=== PATIENT | female | born 1980 | race Caucasian/White ===

== ENCOUNTER 2022-11-09 17:31 | Emergency (ER) | payer OTHER, SELFPAY ==
[2022-11-09 17:34] VITALS: BP 153/95; PULSE 102; RESP 18; TEMP 36.9; O2SAT 98; BMI 17.3
[2022-11-09 18:08] LABS: Bilirubin Urine SMALL (NEGATIVE); Blood Urine LARGE (NEGATIVE); Color Urine RED (YELLOW); Glucose Urine UA NEGATIVE (NEGATIVE); Ketones Urine TRACE mg/dL (NEGATIVE); Leukocyte Esterase Urine MODERATE (NEGATIVE); Nitrite Urine POSITIVE (NEGATIVE); Protein Urine 100 mg/dL (NEG/TRACE); Specific Gravity Urine 1.025 (1.005-1.025); pH Urine 5.5 (5.0-9.0)
[2022-11-09 18:09] LABS: Clarity Urine CLOUDY (CLEAR); Urine Microscopic Indicated YES
--- NOTE | 2022-11-09 18:12 | ED.FEMALEGU1 ---
HPI - Female Genitourinary General Chief complaint: Urogenital-Female Stated complaint: BLOOD IN URINE Time Seen by Provider: 11/09/22 17:36 Source: patient Mode of arrival: walk-in History of Present Illness HPI Narrative: Patient is a 42-year-old female who presents to the emergency department for a one-day history of painful urination and blood in her urine. She denies any fevers, chills, nausea, vomiting. She has no flank or back pain. She does have a history of urinary tract infection. She states just prior to arrival she noted blood in her urine. She has had a previous hysterectomy and is not concerned for . Related Data Home Medications Medication Instructions Recorded Confirmed alprazolam 0.5 mg tablet 0.5 mg PO .q6 PRN anxiety 11/09/22 11/09/22 montelukast 10 mg tablet 10 mg PO QDAY 11/09/22 11/09/22 Previous Rx's Medication Instructions Recorded ciprofloxacin HCl 500 mg tablet 500 mg PO BID #14 tabs 11/09/22 (Cipro) ondansetron 4 mg disintegrating 4 mg PO Q6H PRN nausea and 11/09/22 tablet vomiting #12 tabs phenazopyridine 200 mg tablet 200 mg PO Q8H 2 days #6 tabs 11/09/22 (Pyridium) Allergies Allergy/AdvReac Type Severity Reaction Status Date / Time bactrim AdvReac Intermediate Uncoded 11/09/22 17:34 pcn AdvReac Intermediate Uncoded 11/09/22 17:34 Review of Systems ROS Constitutional Denies: fever or chills Ears, nose, mouth, and throat Denies: throat pain Respiratory Denies: cough Gastrointestinal Reports: abdominal pain; Denies: nausea or vomiting Genitourinary Reports: painful urination and urinary frequency Musculoskeletal Denies: back pain Integumentary/Breast Denies: rash Endocrine Reports: excessive urination Exam Narrative Exam Narrative: Gen.: Awake, alert, in no distress Head: Normocephalic, atraumatic ENT: Moist mucous membranes Respiratory: No respiratory distress Gastrointestinal: Abdomen is soft, nondistended and nontender to palpation; no CVA tenderness Extremities: Moves extremities equally Psych: Normal mood and affect Neuro: No focal neuro deficit Skin: Warm, dry, intact Constitutional Vital Signs, click to edit/add: Last Vital Signs Temp 98.4 F 11/09/22 17:34 Pulse 102 H 11/09/22 17:34 Resp 18 11/09/22 17:34 BP 153/95 H 11/09/22 17:34 Pulse Ox 98 11/09/22 17:34 O2 Del Method Room Air 11/09/22 17:34 Course Vital Signs Vital signs: Vital Signs Temperature 98.4 F 11/09/22 17:34 Pulse Rate 102 H 11/09/22 17:34 Respiratory Rate 18 11/09/22 17:34 Blood Pressure 153/95 H 11/09/22 17:34 Pulse Oximetry 98 11/09/22 17:34 Oxygen Delivery Method Room Air 11/09/22 17:34 Temperature 98.4 F 11/09/22 17:34 Pulse Rate 102 H 11/09/22 17:34 Respiratory Rate 18 11/09/22 17:34 Blood Pressure 153/95 H 11/09/22 17:34 Pulse Oximetry 98 11/09/22 17:34 Oxygen Delivery Method Room Air 11/09/22 17:34 MDM - Female Genitourinary MDM Narrative Medical decision making narrative: Urine specimen is consistent with nitrate positive urinary tract infection. Patient given instructions for home. She is started on Cipro, Pyridium, Zofran. Follow-up with PCP and return to the Emergency Room if symptoms change or worsen. Medical Records Attestation: I reviewed the patient's medical records. Lab Data Attestation: I reviewed the patient's lab results. Labs: Lab Results 11/09/22 Range/Units 17:45 Urine Color Red A (YELLOW) Urine Clarity Cloudy A (CLEAR) Urine pH 5.5 (5.0-9.0) Ur Specific [place] 1.025 (1.005-1.025) Urine Protein 100 A (NEG/TRACE) mg/dL Urine Glucose (UA) Negative (NEGATIVE) mg/dL Urine Ketones Trace A (NEGATIVE) mg/dL Urine Occult Blood Large A (NEGATIVE) Urine Nitrite Positive A (NEGATIVE) Urine Bilirubin Small A (NEGATIVE) Urine Urobilinogen 1.0 (0.2-1.0) EU/dL Ur Leukocyte Esterase Moderate A (NEGATIVE) Discharge Plan Discharge Chief Complaint: Urogenital-Female Clinical Impression: Urinary tract infection Patient Disposition: Home, Self-Care Time of Disposition Decision: 18:10 Condition: Good Prescriptions / Home Meds: New ciprofloxacin HCl [Cipro] 500 mg tablet 500 mg PO BID Qty: 14 0RF phenazopyridine [Pyridium] 200 mg tablet 200 mg PO Q8H 2 Days Qty: 6 0RF ondansetron 4 mg tablet,disintegrating 4 mg PO Q6H PRN (Reason: nausea and vomiting) Qty: 12 0RF No Action alprazolam 0.5 mg tablet 0.5 mg PO .q6 PRN (Reason: anxiety) montelukast 10 mg tablet 10 mg PO QDAY Instructions: Urinary Tract Infection in Women (ED) Stand Alone Forms: Portal Instructions Referrals: COOPER MORGAN [Primary Care Provider] - 1 week Discharge Date/Time: 11/09/22 18:19
[2022-11-09 18:14] LABS: Bacteria Urine NONE SEEN #/HPF (NONE SEEN); Cast Seen? NONE SEEN #/LPF (NONE SEEN); Crystals Seen? None Seen #/HPF (None Seen); Mucus Urine NONE SEEN (NONE SEEN); RBC Urine >100 #/HPF (0-2); Squamous Epithelial Cell Urine NONE SEEN #/LPF (NONE/RARE); Urine Culture Indicated NO
== END 2022-11-09 18:19 | disposition home or self-care (01) ==
PROVIDERS: Physician Assistant; Emergency Provider Student in an Organized Health Care Education/Training Program; PCP Family Medicine
DX: N39.0 Urinary tract infection, site not specified (principal); Z90.710 Acquired absence of both cervix and uterus; Z87.440 Personal history of urinary (tract) infections; Z79.899 Other long term (current) drug therapy
CPT/HCPCS: 81001; 99283

== ENCOUNTER 2022-11-12 13:10 | Emergency (ER) | payer OTHER, SELFPAY ==
[2022-11-12 13:29] VITALS: BP 110/85; PULSE 89; RESP 20; TEMP 36.6; O2SAT 100; BMI 25.7
[2022-11-12 13:49] LABS: Bilirubin Urine NEGATIVE (NEGATIVE); Blood Urine NEGATIVE (NEGATIVE); Clarity Urine CLEAR (CLEAR); Color Urine YELLOW (YELLOW); Glucose Urine UA NEGATIVE (NEGATIVE); Ketones Urine NEGATIVE (NEGATIVE); Leukocyte Esterase Urine NEGATIVE (NEGATIVE); Nitrite Urine NEGATIVE (NEGATIVE); Protein Urine NEGATIVE (NEG/TRACE); Urobilinogen Urine 0.2 EU/dL (0.2-1.0)
[2022-11-12 13:51] LABS: Urine Microscopic Indicated NO
--- NOTE | 2022-11-12 14:32 | ED_ITS ---
HPI - General Adult General Chief complaint: Urogenital-Female Stated complaint: UTI AND LOWER BACK PAIN Time Seen by Provider: 11/12/22 14:20 Source: patient Mode of arrival: walk-in Limitations: no limitations History of Present Illness HPI narrative: Patient is a 42-year-old female presents to the Emergency Room with concerns of intermittent flank pain and low back pain. Patient was seen in the Emergency Room a few days ago with urine culture pending treated for urinary tract infection. Patient reports having gross hematuria at that time with discomfort. Patient states throughout the day today she has had sharp pain in the right flank that is sometimes debilitating and then fleets away. She has had prior hysterectomy and appendectomy. She has no prior history of kidney stones. Patient is concerned as the pain will come at random times without motion or stress. Patient denies any recent fall trauma or injury. She has been taking her antibiotic as prescribed. Related Data Home Medications Medication Instructions Recorded Confirmed alprazolam 0.5 mg tablet 0.5 mg PO .q6 PRN anxiety 11/09/22 11/09/22 montelukast 10 mg tablet 10 mg PO QDAY 11/09/22 11/09/22 Previous Rx's Medication Instructions Recorded ciprofloxacin HCl 500 mg tablet 500 mg PO BID #14 tabs 11/09/22 (Cipro) ondansetron 4 mg disintegrating 4 mg PO Q6H PRN nausea and 11/09/22 tablet vomiting #12 tabs phenazopyridine 200 mg tablet 200 mg PO Q8H 2 days #6 tabs 11/09/22 (Pyridium) polyethylene glycol 3350 17 17 g PO DAILY PRN constipation 11/12/22 gram/dose oral powder (Miralax) #119 grams Allergies Allergy/AdvReac Type Severity Reaction Status Date / Time bactrim AdvReac Intermediate Uncoded 11/09/22 17:34 pcn AdvReac Intermediate Uncoded 11/09/22 17:34 Review of Systems ROS Constitutional Denies: fever or chills Ears, nose, mouth, and throat Denies: throat pain, neck pain or throat swelling Cardiovascular Denies: chest pain or palpitations Respiratory Denies: shortness of breath Gastrointestinal Reports: abdominal pain (Positive right flank pain) Genitourinary Denies: painful urination or vaginal bleeding Musculoskeletal Reports: back pain Integumentary/Breast Denies: rash Neurological Denies: headache Psychiatric Denies: anxiety PFSH PFS Social History Smoking status: Never smoker Exam Narrative Exam Narrative: Nurses notes and vital signs reviewed and patient is not hypoxic. General: The patient appears well and in no apparent distress. Patient is resting comfortably on cart. Patient notes when pain is present it is severe Skin: Warm, dry, no pallor noted. No evidence of rash Head: Normocephalic, atraumatic Neck: Supple, trachea mid-line, no tenderness, no lymphadenopathy Eye: Pupils are equal, round and reactive to light, EOMI Ears, Nose, Mouth, and Throat: External exam unremarkable Cardiovascular: Regular Rate and Rhythm Respiratory: Patient is in no distress, no accessory muscle use, lungs are clear to auscultation, no wheezing, rales or rhonchi. Chest Wall: no tenderness Back: non-tender, no CVA tenderness, Musculoskeletal: normal ROM, no tenderness, no swelling GI: Normal bowel sounds, no tenderness to palpation, no masses appreciated. No rebound, guarding, or rigidity noted. Neurological: A&O x4 Psychiatric: Cooperative Constitutional Vital Signs, click to edit/add: Last Vital Signs Temp 97.9 F 11/12/22 13:29 Pulse 89 11/12/22 13:29 Resp 20 11/12/22 13:29 BP 110/85 11/12/22 13:29 Pulse Ox 100 11/12/22 13:29 Course Vital Signs Vital signs: Vital Signs Temperature 97.9 F 11/12/22 13:29 Pulse Rate 89 11/12/22 13:29 Respiratory Rate 20 11/12/22 13:29 Blood Pressure 110/85 11/12/22 13:29 Pulse Oximetry 100 11/12/22 13:29 Temperature 97.9 F 11/12/22 13:29 Pulse Rate 89 11/12/22 13:29 Respiratory Rate 20 11/12/22 13:29 Blood Pressure 110/85 11/12/22 13:29 Pulse Oximetry 100 11/12/22 13:29 Medical Decision Making MDM Narrative Medical decision making narrative: Previous hysterectomy and appendectomy reported, pain in the right flank sharp severe intermittent concerning for possible kidney stone. We discussed her symptoms currently tolerable with mild ache but can be severe with sharp pain. Patient agreeable to IM Toradol shot. We discussed potential outpatient workup but patient elected to move forward with CT scan today as she has a scheduled appointment with her family doctor on Tuesday. She'll continue with current antibiotic pending urine culture A she will continue her antibiotic, discussed laboratory studies and urinalysis along with CT of the abdomen and pelvis, patient will start MiraLAX daily. The patient is to followup with primary care physician in next 2-3 days or to return to the emergency department should any of the signs or symptoms worsen or new symptoms develop. Patient had questions answered. The patient agrees with the following Diagnosis and Treatment plan and the patient will be discharged home. Lab Data Lab results reviewed: Yes I reviewed the patient's lab results Labs: Lab Results 11/12/22 11/12/22 Range/Units 13:35 14:42 WBC 6.3 (4.0-11.0) 10^3/uL RBC 4.57 (4.20-5.40) 10^6/uL Hgb 13.7 (12.0-16.0) g/dL Hct 40.9 (36.0-48.0) % MCV 89.5 (81.0-99.0) fL MCH 30.0 (26.7-34.0) pg MCHC 33.5 (29.9-35.2) g/dL RDW 12.1 (11.0-15.0) % Plt Count 318 (150-450) 10^3/uL MPV 8.7 L (9.5-13.5) fL Neut % (Auto) 65.8 (43.0-75.0) % Lymph % (Auto) 25.9 (20.5-60.0) % [place] % (Auto) 4.3 (1.7-12.0) % Eos % (Auto) 3.0 (0.9-7.0) % Baso % (Auto) 0.8 (0.2-2.0) % Neut # (Auto) 4.1 (1.4-6.5) 10^3/uL Lymph # (Auto) 1.6 (1.2-3.8) 10^3/uL [place] # (Auto) 0.3 (0.3-0.8) 10^3/uL Eos # (Auto) 0.2 (0.0-0.7) 10^3/uL Baso # (Auto) 0.1 (0.0-0.1) 10^3/uL Abs Immat Gran (auto) 0.01 (0.00-0.03) 10^3/uL Imm/Tot Granulo (auto) 0.2 (0.0-0.5) % Sodium 139 (136-145) mmol/L Potassium 4.0 (3.5-5.1) mmol/L Chloride 103 (98-107) mmol/L Carbon Dioxide 26.2 (21.0-32.0) mmol/L Anion Gap 13.8 BUN 12.0 (7.0-18.0) mg/dL Creatinine 0.60 (0.55-1.02) mg/dL Est GFR ( Amer) >60 (>=60) Est GFR (Non-Af Amer) >60 (>=60) BUN/Creatinine Ratio 20.0 Glucose 89 (74-106) mg/dL Calcium 9.3 (8.5-10.1) mg/dL Urine Color Yellow (YELLOW) Urine Clarity Clear (CLEAR) Urine pH 6.0 (5.0-9.0) Ur Specific [place] 1.010 (1.005-1.025) Urine Protein Negative (NEG/TRACE) mg/dL Urine Glucose (UA) Negative (NEGATIVE) mg/dL Urine Ketones Negative (NEGATIVE) mg/dL Urine Occult Blood Negative (NEGATIVE) Urine Nitrite Negative (NEGATIVE) Urine Bilirubin Negative (NEGATIVE) Urine Urobilinogen 0.2 (0.2-1.0) EU/dL Ur Leukocyte Esterase Negative (NEGATIVE) Imaging Data CT scan - abdomen: Radiologist's impression: At the request of: IDALMIS AZAR Procedure: CT abdomen pelvis wo con EXAMINATION: CT abdomen pelvis wo con, 11/12/2022 2:50 PM EDT HISTORY: Right flank pain stone protocol COMPARISON: None. TECHNIQUE: CT scan of the abdomen and pelvis was performed without IV contrast. CT dose reduction technique was used, including Automated Exposure Control. FINDINGS: LOWER CHEST: The visualized lungs are clear. LIVER: Unremarkable. GALLBLADDER AND BILIARY SYSTEM: The gallbladder is contracted. No significant intra or extrahepatic biliary ductal dilatation. SPLEEN: Unremarkable. PANCREAS: Unremarkable. ADRENAL GLANDS: Unremarkable. KIDNEYS AND URETERS: No nephrolithiasis or hydronephrosis. No ureteral calculus. BLADDER: Unremarkable. GASTROINTESTINAL TRACT: No evidence of bowel obstruction or colitis. The appendix is not clearly identified. Moderate amount of stool in the colon. VASCULATURE: The abdominal aorta is normal in caliber. RETROPERITONEUM: No lymphadenopathy. PERITONEUM/MESENTERY: No abdominal ascites. No free air. PELVIS: No pelvic ascites or lymphadenopathy. BODY WALL: Unremarkable. BONES: No acute abnormality. IMPRESSION: 1. No acute process in the abdomen or pelvis. 2. Constipation. Electronically authenticated by: BRIAN STALLINGS Date: 11/12/2022 15:11 Discharge Plan Discharge Chief Complaint: Urogenital-Female Clinical Impression: Back pain, Constipation Patient Disposition: Home, Self-Care Time of Disposition Decision: 15:19 Condition: Good Prescriptions / Home Meds: New polyethylene glycol 3350 [Miralax] 17 gram/dose powder 17 g PO DAILY PRN (Reason: constipation) Qty: 119 0RF No Action alprazolam 0.5 mg tablet 0.5 mg PO .q6 PRN (Reason: anxiety) montelukast 10 mg tablet 10 mg PO QDAY ciprofloxacin HCl [Cipro] 500 mg tablet 500 mg PO BID Qty: 14 0RF phenazopyridine [Pyridium] 200 mg tablet 200 mg PO Q8H 2 Days Qty: 6 0RF ondansetron 4 mg tablet,disintegrating 4 mg PO Q6H PRN (Reason: nausea and vomiting) Qty: 12 0RF Instructions: Constipation (ED), Acute Low Back Pain (ED) Stand Alone Forms: Portal Instructions Referrals: COOPER MORGAN [Primary Care Provider] - As soon as possible
[2022-11-12] MEDS: KETOROLAC TROMETHAMINE 60 MG/2 ML VIAL IM (14:46)
[2022-11-12 14:53] LABS: Basophils Absolute Auto 0.1 10^3/uL (0.0-0.1); Basophils Percent Auto 0.8 % (0.2-2.0); Eosinophils Absolute Auto 0.2 10^3/uL (0.0-0.7); Hematocrit 40.9 % (36.0-48.0); Hemoglobin 13.7 g/dL (12.0-16.0); Immature Granulocytes Abs Auto 0.01 10^3/uL (0.00-0.03); Immature Granulocytes Pct Auto 0.2 % (0.0-0.5); Lymphocytes Absolute Auto 1.6 10^3/uL (1.2-3.8); Lymphocytes Percent Auto 25.9 % (20.5-60.0); Mean Corpuscular HGB Conc 33.5 g/dL (29.9-35.2); Mean Corpuscular Volume 89.5 fL (81.0-99.0); Mean Platelet Volume 8.7 fL (9.5-13.5); Monocytes Absolute Auto 0.3 10^3/uL (0.3-0.8); Monocytes Percent Auto 4.3 % (1.7-12.0); Neutrophils Absolute Auto 4.1 10^3/uL (1.4-6.5); Neutrophils Percent Auto 65.8 % (43.0-75.0); Platelet Count 318 10^3/uL (150-450); Red Blood Count 4.57 10^6/uL (4.20-5.40); Red Cell Distribution Width 12.1 % (11.0-15.0); White Blood Count 6.3 10^3/uL (4.0-11.0)
--- NOTE | 2022-11-12 14:54 | CT_ITS ---
The [address] [address] Patient Name: LANCE REEDER MRN: [id number] date: 1980 Sex: F Assigned Patient Location: ER Current Patient Location: ER Accession/Order Number: [id number] Exam Date: 11/12/2022 14:50 Report Date: 11/12/2022 15:11 At the request of: IDALMIS AZAR Procedure: CT abdomen pelvis wo con EXAMINATION: CT abdomen pelvis wo con, 11/12/2022 2:50 PM EDT HISTORY: Right flank pain stone protocol COMPARISON: None. TECHNIQUE: CT scan of the abdomen and pelvis was performed without IV contrast. CT dose reduction technique was used, including Automated Exposure Control. FINDINGS: LOWER CHEST: The visualized lungs are clear. LIVER: Unremarkable. GALLBLADDER AND BILIARY SYSTEM: The gallbladder is contracted. No significant intra or extrahepatic biliary ductal dilatation. SPLEEN: Unremarkable. PANCREAS: Unremarkable. ADRENAL GLANDS: Unremarkable. KIDNEYS AND URETERS: No nephrolithiasis or hydronephrosis. No ureteral calculus. BLADDER: Unremarkable. GASTROINTESTINAL TRACT: No evidence of bowel obstruction or colitis. The appendix is not clearly identified. Moderate amount of stool in the colon. VASCULATURE: The abdominal aorta is normal in caliber. RETROPERITONEUM: No lymphadenopathy. PERITONEUM/MESENTERY: No abdominal ascites. No free air. PELVIS: No pelvic ascites or lymphadenopathy. BODY WALL: Unremarkable. BONES: No acute abnormality. CT/CT abdomen pelvis wo con IMPRESSION: 1. No acute process in the abdomen or pelvis. 2. Constipation. Electronically authenticated by: BRIAN STALLINGS Date: 11/12/2022 15:11
[2022-11-12 15:01] LABS: Anion Gap 13.8; Calcium 9.3 mg/dL (8.5-10.1); Carbon Dioxide 26.2 mmol/L (21.0-32.0); Chloride 103 mmol/L (98-107); Estimated GFR (African America >60 (>=60); Estimated GFR (Non-African Ame >60 (>=60); Glucose 89 mg/dL (74-106); Sodium 139 mmol/L (136-145)
== END 2022-11-12 15:37 | disposition home or self-care (01) ==
PROVIDERS: Personal Emergency Response Attendant; Emergency Provider Emergency Medicine Emergency Medical Services; PCP Family Medicine
DX: K59.00 Constipation, unspecified (principal); M54.9 Dorsalgia, unspecified; Z79.899 Other long term (current) drug therapy; Z90.710 Acquired absence of both cervix and uterus
CPT/HCPCS: 36415; 74176; 80048; 81003; 85025; 96372; 99285

== ENCOUNTER 2023-04-06 08:01 | Outpatient (OUT) | payer OTHER, SELFPAY ==
[2023-04-06 08:15] LABS: Basophils Absolute Auto 0.1 10^3/uL (0.0-0.1); Basophils Percent Auto 1.1 % (0.2-2.0); Eosinophils Absolute Auto 0.3 10^3/uL (0.0-0.7); Eosinophils Percent Auto 5.5 % (0.9-7.0); Hematocrit 41.8 % (36.0-48.0); Hemoglobin 13.6 g/dL (12.0-16.0); Immature Granulocytes Abs Auto 0.01 10^3/uL (0.00-0.03); Immature Granulocytes Pct Auto 0.2 % (0.0-0.5); Lymphocytes Absolute Auto 1.3 10^3/uL (1.2-3.8); Lymphocytes Percent Auto 27.9 % (20.5-60.0); Mean Corpuscular HGB Conc 32.5 g/dL (29.9-35.2); Mean Corpuscular Hemoglobin 29.4 pg (26.7-34.0); Mean Corpuscular Volume 90.3 fL (81.0-99.0); Mean Platelet Volume 8.4 fL (9.5-13.5); Monocytes Absolute Auto 0.3 10^3/uL (0.3-0.8); Monocytes Percent Auto 7.1 % (1.7-12.0); Neutrophils Absolute Auto 2.8 10^3/uL (1.4-6.5); Neutrophils Percent Auto 58.2 % (43.0-75.0); Platelet Count 304 10^3/uL (150-450); Red Blood Count 4.63 10^6/uL (4.20-5.40); Red Cell Distribution Width 12.1 % (11.0-15.0); White Blood Count 4.8 10^3/uL (4.0-11.0)
[2023-04-06 09:13] LABS: Alanine Aminotransferase 25 U/L (14-59); Albumin Globulin Ratio 0.9; Albumin Level 3.7 g/dL (3.4-5.0); Alkaline Phosphatase 52 U/L (46-116); Anion Gap 15.9; Aspartate Amino Transferase 14 U/L (15-37); BUN Creatinine Ratio 5.2; Bilirubin Total 0.8 mg/dL (0.2-1.0); Calcium 8.6 mg/dL (8.5-10.1); Carbon Dioxide 22.8 mmol/L (21.0-32.0); Chloride 104 mmol/L (98-107); Estimated GFR (African America >60 (>=60); Estimated GFR (Non-African Ame >60 (>=60); Free T3 2.41 pg/mL (2.18-3.98); Glucose 90 mg/dL (74-106); Potassium 3.7 mmol/L (3.5-5.1); Sodium 139 mmol/L (136-145); Thyroid Stimulating Hormone 0.609 uIU/mL (0.358-3.740); Total Protein 7.7 g/dL (6.4-8.2)
[2023-04-06 09:26] LABS: Free T4 1.03 ng/dL (0.76-1.46)
[2023-04-07 04:07] LABS: FSH 6.8 mIU/mL (.); Luteinizing Hormone(LH) 5.8 mIU/mL (.)
[2023-04-07 16:09] LABS: Deamidated Gliadin Abs, IgA 8 units (0-19); Deamidated Gliadin Abs, IgG 2 units (0-19); Endomysial Antibody IgA Negative (Negative); Immunoglobulin A, Qn, Serum 322 mg/dL (87-352); t-Transglutaminase (tTG) IgA <2 U/mL (0-3); t-Transglutaminase (tTG) IgG <2 U/mL (0-5)
== END 2023-04-06 08:02 | disposition home or self-care (01) ==
LOC: LAB 08:01
PROVIDERS: PCP Family Medicine; Visit Provider Family Medicine
DX: R53.83 Other fatigue (principal); R19.4 Change in bowel habit
CPT/HCPCS: 36415; 80053; 82607; 82784; 83001; 83002; 84439; 84443; 84481; 85025; 86231; 86258; 86364

== ENCOUNTER 2023-05-03 22:16 | Outpatient (REF) | payer OTHER, SELFPAY ==
--- OUTSIDE RECORDS SUMMARY | 2023-05-03 22:20 | XMS_ITS | CCD ---
Author Name Unknown Address [address] [place] [address] Organization [facility] Care Team Providers Care Route Driver Name Role Phone Nolan Muñoz Unavailable WANDA, DR NOLAN Lewis Primary Care Unavailable KARASIK ., DR SMITH Attending Unavailabl e KARASIK ., DR SMITH Consulting Unavailabl e KARASIK ., DR SMITH Admitting Unavailabl e ZieberFito Consulting Unavailable KARASIK ., DR SMITH Attending Unavailabl e KARASIK ., DR SMITH Consulting Unavailabl e KARASIK ., DR SMITH Admitting Unavailabl e WANDA, DR NOLAN Lewis Primary Care Unavailable WANDA, DR NOLAN Lewis Primary Care Unavailable KARASIK ., DR SMITH Admitting Unavailabl e KARASIK ., DR SMITH Attending Unavailabl e KARASIK ., DR SMITH Consulting Unavailabl e WANDA, DR NOLAN Lewis Primary Care Unavailable Fito Islas Consulting Unavailable JHONNY ., DENA Admitting Unavailable JHONNY ., DENA Attending Unavailable JHONNY ., DENA Consulting Unavailable Fito Islas Consulting Unavailable PAY ., DR EH Admitting Unavailable PAY ., DR HE Attending Unavailable WANDA, DR NOLAN Lewis Primary Care Unavailable GRECHNY ., DORIS WESTON Consulting Unavailabl e WANDA, DR NOLAN Lewis Primary Care Unavailable KARASIK ., DR SMITH Attending Unavailabl e KARASIK ., DR SMITH Consulting Unavailabl e KARASIK ., DR SMITH Admitting Unavailabl e Zieber, Fito Consulting Unavailable Asaad, Imad Unavailable Unavailable Primary Care Provider Unavailabl e Allergies Allergy Classification Reported Allergen(s) Allergy Type Date of Onset Reaction(s) Facility (20 sources) Amoxicillin Drug Allergy Unknown [employer] Other (20 sources) Clindamycin Drug Allergy 4 hives [facility] Work Phone: (20 sources) fluticasone Drug Allergy Thrush [employer] [facility] [employer] Other (20 sources) Penicillin Drug Allergy [facility] [employer] [facility] [employer] Other (20 sources) Sulfamethoxazole / Trimethoprim Drug Allergy [facility] [employer] [facility] [employer] Other (1 source) Amoxicillin Drug Allergy [facility] Repository (1 source) Clindamycin Drug Allergy [facility] Repository (1 source) fluticasone Drug Allergy 0 [facility]ository (1 source) Penicillins Drug allergy (disorder) 3 [facility]ository (1 source) Sulfamethoxazole / Trimethoprim Drug Allergy [facility] Repository (1 source) Penicillin G Drug Allergy 4 [facility] Healthcare Medications Current Medications Medication Drug Class(es) Dates Sig (Normalized) Sig (Original) ALPRAZolam 0.5 mg oral tablet (20 sources) Benzodiazepine Start: 02-14-2023 take 1 tablet by mouth twice daily as needed Xanax 0.5 MG 1 tab(s) Orally bid prn for 20 day(s) PRN Jan, Active Start: 07-28-2022 take 1 tablet by nakita th twice daily as needed Xanax 0.5 MG 1 tab(s) Orally bid prn for 20 day(s) PRN July, Active Start: 05-11-2022 take 1 tablet by nakita th twice daily as needed Xanax 0.5 MG 1 tab(s) Orally bid prn for 20 day(s) PRN Apr, Active Start: 01-04-2022 take 1 tablet by nakita th twice daily as needed Xanax 0.5 MG 1 tab(s) Orally bid prn for 20 day(s) PRN Dec, Active Start: 10-19-2021 take 1 tablet by nakita th twice daily as needed Xanax 0.5 MG 1 tab(s) Orally bid prn for 20 day(s) PRN Sep, Active Start: 08-10-2021 take 1 tablet by nakita th twice daily as needed Xanax 0.5 MG 1 tab(s) Orally bid prn for 20 day(s) PRN July, Active Start: 05-07-2021 take 1 tablet by nakita th twice daily as needed Xanax 0.5 MG 1 tab(s) Orally bid prn for 20 day(s) PRN Apr, Active Start: 02-04-2021 ciprofloxacin 500 mg oral tablet (6 sources) Quinolone Antimicrobial Start: 06-20-2020 take 1 tablet by mouth every twelve hours Ciprofloxacin HCl 500 MG 1 tablet Orally every 12 hrs for 7 day(s) May, Active doxycycline hyclate 100 mg oral tablet (4 sources) Tetracycline-class Drug Start: 04-28-2010 take 1 tablet by mouth every twelve hours Doxycycline Hyclate 100 mg 1 tablet Orally Twice a day for 7 day(s) Apr, Active famotidine 10 mg oral tablet (20 sources) Histamine-2 Receptor Antagonist take 1 tablet by mouth every twelve hours Pepcid AC 10 MG 1 tablet as needed Orally Twice a day Active fluconazole 150 mg oral tablet (10 sources) Azole Antifungal Start: 10-22-2019 take 1 tablet by mouth every twenty-four hours Diflucan 150 MG 1 tablet Orally daily for 5 day(s) Sep, Active homatropine methylbromide 0.3 mg/ml / HYDROcodone bitartrate 1 mg/ml oral solution (4 sources) Opioid Agonist, Cholinergic Muscarinic Agonist Start: 04-09-2021 HYDROcodone-Homatro pine 5-1.5 MG/5ML 5 ml as needed Orally every 6 hrs for 5 days Mar, Active Start: 04-09-2021 ibuprofen 800 mg oral tablet (20 sources) Nonsteroidal Anti-inflammatory Drug Start: 10-26-2017 take 1 tablet by mouth three times daily at mealtime as needed Ibuprofen 800 MG 1 tablet with food or milk as needed Orally Three times a day for 90 days Oct, Active Metamucil Fiber 51.7 % (20 sources) Metamucil Fiber 51.7 % as directed Orally prn Active metroNIDAZOLE 500 mg oral tablet (11 sources) Nitroimidazole Antimicrobial Start: 06-20-2020 take 1 tablet by mouth twice daily Flagyl 500 MG 1 tablet Orally twice a day for 7 days May, Active montelukast 10 mg oral tablet (20 sources) Leukotriene Receptor Antagonist Start: 10-10-2018 take 1 tablet by mouth every twenty-four hours Singulair 10 MG 1 tablet Orally Once a day for 90 days Sep, Active ondansetron 4 mg oral tablet (11 sources) Serotonin-3 Receptor Antagonist take 1 tablet by mouth every four hours Ondansetron HCl 4 MG 1 tablet as needed Orally every 4 hrs for 3 days Active polyethylene glycol [id number] [id number] mg / potassium chloride 2970 mg / sodium bicarbonate 6740 mg / sodium chloride 5860 mg / sodium sulfate 70976 mg powder for oral solution (1 source) Osmotic Laxative Start: 04-19-2023 take 236 g by mouth once daily PEG-3350/Electrol ytes 236 GM 4000 ML Orally once daily for 1 days Mar, Active Vitamin C 500 MG (17 sources) Vitamin C 500 MG as directed Orally daily Active Vitamin C 500 MG as directed Orally Active Vitamin D-3 25 MCG (1000 UT) (17 sources) take 1 capsule by mouth once emmy ly Vitamin D-3 25 MCG (1000 UT) 1 capsule Orally Once a day Active Completed/Discontinued Medications Medication Drug Class(es) Dates Sig (Normalized) Sig (Original) ascorbic acid 500 mg oral capsule (2 sources) Vitamin C Vitamin C 500 MG as directed Orally daily Not-Taking/PRN azithromycin 250 mg oral tablet (9 sources) Macrolide Antimicrobial Start: 11-24-2020 Zithromax Z-Jose Guadalupe 250 MG 2 tablet on the first day, then 1 tablet daily for 4 days Orally Once a day for 5 day(s) Oct, Not-Taking cholecalciferol 0.025 mg oral capsule (2 sources) Vitamin D take 1 capsule by mouth every twenty-four hours Vitamin D-3 25 MCG (1000 UT) 1 capsule Orally Once a day Not-Taking/PRN Multivitamin preparation (20 sources) take 1 tablet by mouth once daily as needed Multivitamin - 1 tablet Orally Once a day Not-Taking/PRN take 1 tablet by mouth once evonne y Multivitamin - 1 tablet Orally Once a day Active Zinc (17 sources) take 1 tablet by once daily Zinc 30 MG 1 tablet Orally Once a day Not-Taking take 1 tablet by mouth once evonne y Zinc 30 MG 1 tablet Orally Once a day Active Problems Active Problems Problem Classification Problem Date Documented Da te Episodic/Chronic Abdominal pain (8 sources) Generalized abdominal pain; Translations: [Unspecified abdominal pain] Onset: 07-24-2021 Resolved: 07-24-2021 Episodic Anxiety disorders (20 sources) Anxiety; Translations: [Anxiety disorder, unspecified] Onset: 05-06-2021 Resolved: 10-19-2021 Chronic Malaise and fatigue (20 sources) Fatigue; Translations: [Chronic fatigue, unspecified] Chronic Malaise and fatigue (1 source) Other fatigue Episodic Menstrual disorders (20 sources) Finding of menstrual bleeding; Translations: [Irregular menstruation, unspecified] Chronic Nausea and vomiting (6 sources) Nausea with vomiting, unspecified; Translations: [NAUSEA WITH VOMITING UNSPECIFIED] Onset: 07-23-2021 Resolved: 07-24-2021 Episodic Other aftercare (1 source) Other terminal computer operator (current) drug therapy; Translations: [OTH [facility] CURRENT DRUG THERAPY] Onset: 06-15-2022 Episodic Other connective tissue disease (4 sources) Pain in left foot Onset: 11-12-2021 Resolved: 11-12-2021 Episodic Other ear and sense organ disorders (20 sources) Otitis externa; Translations: [Unspecified otitis externa, left ear] Chronic Other eye disorders (2 sources) Other specified disorders of eye and adnexa Episodic Other gastrointestinal disorders (3 sources) Abdominal distension (gaseous) Episodic Other gastrointestinal disorders (1 source) Change in bowel habit Episodic Other nutritional; endocrine; and metabolic disorders (20 sources) Obesity; Translations: [Obesity, unspecified] Chronic Other nutritional; endocrine; and metabolic disorders (20 sources) Body mass index 30+ - obesity; Translations: [Body mass index (BMI) 35.0-35.9, adult] Chronic Other upper respiratory disease (20 sources) Seasonal allergy; Translations: [Other seasonal allergic rhinitis] Chronic Other upper respiratory disease (4 sources) Other seasonal allergic rhinitis Onset: 08-13-2021 Resolved: 10-19-2021 Chronic Other upper respiratory infections (3 sources) Acute upper respiratory infection, unspecified; Translations: [Acute pharyngitis, unspecified] Onset: 04-09-2021 Resolved: 11-12-2021 Episodic Residual codes; unclassified (1 source) Acquired absence of both cervix and uterus; Translations: [ACQUIRED ABSENCE BOTH CERVIX AND UTERUS] Onset: 06-15-2022 Episodic Past or Other Problems Problem Classification Problem Date Documented Date Episodic/Chronic Immunizations and screening for infectious disease (1 source) Encounter for screening for human papillomavirus (HPV); Translations: [ENC SCREENING HUMAN PAPILLOMAVIRUS] Onset: 11-25-2021 Episodic Nonmalignant breast conditions (2 sources) Unspecified lump in the left breast, upper inner quadrant; Translations: [Unspecified lump in the left breast, lower inner quadrant] Onset: 10-29-2021 Episodic Other female genital disorders (5 sources) Other specified noninflammatory disorders of vagina; Translations: [OTH SPEC NONINFLAMMATORY D/O VAGINA] Onset: 07-21-2021 Episodic Other screening for suspected conditions (not mental disorders or infectious disease) (12 sources) Encounter for screening for malignant neoplasm of cervix; Translations: [Other abnormal and inconclusive findings on diagnostic imaging of breast] Onset: 10-26-2021 Episodic Unclassified (1 source) Cough R05.9 Onset: 04-14-2021 Resolved: 04-14-2021 Results Test Name Value Interpretation Reference Range Facility COVID + FLU Quick Testingon 03-14-2023 SARS-CoV-2 (COVID-19) RNA BEN+probe Ql (Unsp spec) Negative [facility] [employer] Other COVID + FLU Quick Testing Negative [employer] [facility] [employer] Other Quick Strepon 03-14-2023 S. pyogenes Org specific cx Ql (Throat) Negative [employer] Other Quick Strep [employer] [facility] [employer] Other CBC AUTO DIFFon 06-11-2022 BASO # 0.1 103/ul Normal 0.0-0.1 [facility] Comment on above: Performed By: #### C BC #### [facility] [address] [place], [place] [address] Dr. Eugenio Natarajan Basophils/100 WBC (Bld) 0.5 % Normal 0.2-2.0 [facility] Comment on above: Performed By: #### C BC #### [facility] [address] [place] [address] Dr. Eugenio Natarajan EO # 0.2 103/ul Normal 0.0-0.7 [facility] Comment on above: Performed By: #### C BC #### [facility] [address] [place] [address] Dr. Eugenio Natarajan Eosinophils/100 WBC (Bld) 2.6 % Normal 0.9-7.0 [facility] Comment on above: Performed By: #### C BC #### [facility] [address] [place] [address] Dr. Eugenio Natarajan Erythrocyte distribution width (RBC) [Ratio] 12.3 % Normal 11.0-15.0 [facility] Comment on above: Performed By: #### C BC #### [facility] [address] [place] [address] Dr. Eugenio Natarajan Hematocrit (Bld) [Volume fraction] 39.6 % Normal 36.0-48.0 [facility] Comment on above: Performed By: #### C BC #### [facility] [address] [place] [address] Dr. Eugenio Natarajan Hemoglobin (Bld) [Mass/Vol] 13.3 g/dL Normal 12.0-16.0 [facility] Comment on above: Performed By: #### C BC #### [facility] [address] [place] [address] Dr. Eugenio Natarajan IG # 0.03 10e3/ul Normal 0.00-0.03 [facility] Comment on above: Performed By: #### C BC #### [facility] [address] [place] [address] Dr. Eugenio Natarajan IG % 0.3 % Normal 0.0-0.5 [facility] Comment on above: Performed By: #### C BC #### [facility] [address] [place] [address] Dr. Eugenio Natarajan LYMPH # 1.8 103/ul Normal 1.2-3.8 [facility] Comment on above: Performed By: #### C BC #### [facility] [address] [place] [address] Dr. Eugenio Natarajan Lymphocytes/100 WBC (Bld) 19.1 % Critically low 20.5-60.0 [facility] Comment on above: Performed By: #### C BC #### [facility] [address] [place] [address] Dr. Eugenio Natarajan MANUAL DIFF REQ NO Normal [facility] Comment on above: Performed By: #### C BC #### [facility] [address] [place] [address] Dr. Eugenio Natarajan MCH (RBC) [Entitic mass] 29.6 pg Normal 26.7-34.0 [facility] Comment on above: Performed By: #### C BC #### [facility] [address] [place] [address] Dr. Eugenio Natarajan MCHC (RBC) [Mass/Vol] 33.6 g/dL Normal 29.9-35.2 [facility] Comment on above: Performed By: #### C BC #### [facility] [address] [place] [address] Dr. Eugenio Natarajan MCV (RBC) [Entitic vol] 88.0 fL Normal 81.0-99.0 [facility] Comment on above: Performed By: #### C BC #### [facility] [address] [place] [address] Dr. Eugenio Natarajan MONO # 0.4 103/ul Normal 0.3-0.8 [facility] Comment on above: Performed By: #### C BC #### [facility] [address] [place] [address] Dr. Eugenio Natarajan Monocytes/100 WBC (Bld) 3.8 % Normal 1.7-12.0 [facility] Comment on above: Performed By: #### C BC #### [facility] [address] [place] [address] Dr. Eguenio Natarajan NEUT # 6.9 103/ul Critically high 1.4-6.5 [facility] Comment on above: Performed By: #### C BC #### [facility] [address] [place] [address] Dr. Eugenio Natarajan Neutrophils/100 WBC (Bld) 73.7 % Normal 43.0-75.0 [facility] Comment on above: Performed By: #### C BC #### [facility] [address] [place] [address] Dr. Eugenio Natarajan Platelet mean volume (Bld) [Entitic vol] 8.7 fL Critically low 9.5-13.5 [facility] Comment on above: Performed By: #### C BC #### [facility] [address] [place] [address] [address] Eugenio Natarajan PLT 343 103/ul Normal 150-450 [facility] Comment on above: Performed By: #### C BC #### [facility] [address] [place] [address] Dr. Eugenio Natarajan RBC 4.50 106/ul Normal 4.20-5.40 [facility] Comment on above: Performed By: #### C BC #### [facility] [address] [place] [address] Dr. Eugenio Natarajan WBC 9.3 103/ul Normal 4.0-11.0 [facility] Comment on above: Performed By: #### C BC #### [facility] [address] [place] [address] Dr. Eugenio Natarajan ER URINE PROFILEon 3 Bilirubin Ql (U) Negative Normal NEGATIVE [facility] Comment on above: Performed By: #### E RUR ####[facility] [address] [place], [place] [address]DrGennaro Natarajan Clarity (U) CLEAR Normal CLEAR [facility] Comment on above: Performed By: #### E RUR ####[facility] [address] [place] [address]DrGennaro Natarajan Color (U) LT. YELLOW Normal YELLOW [facility] Comment on above: Performed By: #### E RUR ####[facility] [address] [place] [address]DrGennaro Natarajan ERUAHD A micrscopic examination will be performed if indicated. Normal [facility] Comment on above: Performed By: #### E RUR ####[facility] [address] [place] [address]Dr. Eugenio Natarajan Glucose Ql (U) Negative Normal NEGATIVE [facility] Comment on above: Performed By: #### E RUR ####[facility] [address] [place] [address]Dr. Eugenio Natarajan Hemoglobin Ql (U) Negative Normal NEGATIVE [facility] Comment on above: Performed By: #### E RUR ####[facility] [address] [place], [place] [address]Dr. Eugenio Natarajan Ketones Ql (U) Negative Normal NEGATIVE [facility] Comment on above: Performed By: #### E RUR ####[facility] [address] [place], [place] [address]Dr. Eugenio Natarajan LEUKOCYTES Negative Normal NEGATIVE [facility] Comment on above: Performed By: #### E RUR ####[facility] [address] [place], [place] [address]Dr. Eugenio Natarajan Nitrite Ql (U) Negative Normal NEGATIVE [facility] Comment on above: Performed By: #### E RUR ####[facility] [address] [place], [place] [address]Dr. Eugenio Natarajan pH (U) 6.0 [pH] Normal 5-9 [facility] Comment on above: Performed By: #### E RUR ####[facility] [address] [place], [place] [address]Dr. Eugenio Natarajan SPEC GRAVITY 1.010 Normal 1.005-<=1.025 [facility] Comment on above: Performed By: #### E RUR ####[facility] [address] [place], [place] [address]Dr. Eugenio Natarajan UA PROTEIN Negative Normal NEGATIVE/ TRACE [facility] Comment on above: Performed By: #### E RUR ####[facility] [address] [place], [place] [address]Dr. Eugenio Natarajan UR MICRO IND NOT INDICATED Normal [facility] Comment on above: Performed By: #### E RUR ####[facility] [address] [place] [address]Dr. Eugenio Natarajan Urobilinogen Qn (U) 0.2 {Wilmar'U}/dL Normal 0.2 - 1.0 [facility] Comment on above: Performed By: #### E RUR ####[facility] [address] [place], [place] [address]Dr. Eugenio Natarajan LIPASEon 06-11-2022 Lipase [Catalytic activity/Vol] 116.0 U/L Normal 73.0-393.0 [facility] Comment on above: Performed By: #### C MP, LIPA ####[facility] [address] [place], [place] [address]Dr. Eugenio Natarajan PROF 14(COMP METB)on 023 Albumin [Mass/Vol] 4.4 g/dL Normal 3.4-5.0 [facility] Comment on above: Performed By: #### C MP, LIPA ####[facility] [address] [place], [place] [address]Dr. Eugenio Natarajan Albumin/Globulin [Mass ratio] 1.2 {ratio} Normal [facility] Comment on above: Performed By: #### C MP, LIPA ####[facility] [address] [place], [place] [address]Dr. Eugenio Natarajan ALP [Catalytic activity/Vol] 57 U/L Normal 46-116 [facility] Comment on above: Performed By: #### C MP, LIPA ####[facility] [address] [place], [place] [address]Dr. Eugenio Natarajan ALT [Catalytic activity/Vol] 25 U/L Normal 14-59 [facility] Comment on above: Performed By: #### C MP, LIPA ####[facility] [address] [place], [place] [address]Dr. Eugenio Natarajan Anion gap [Moles/Vol] 13.4 mmol/L Normal [facility] Comment on above: Performed By: #### C MP, LIPA ####[facility] [address] [place], [place] [address]Dr. Eugenio Natarajan AST [Catalytic activity/Vol] 20 U/L Normal 15-37 [facility] Comment on above: Performed By: #### C MP, LIPA ####[facility] [address] [place] [address]Dr. Eugenio Natarajan Bilirubin [Mass/Vol] 0.8 mg/dL Normal 0.2-1.0 [facility] Comment on above: Performed By: #### C MP, LIPA ####[facility] [address] [place], [place] [address]Dr. Eugenio Natarajan Calcium [Mass/Vol] 9.2 mg/dL Normal 8.5-10.1 [facility] Comment on above: Performed By: #### C MP, LIPA ####[facility] [address] [place], [place] [address]Dr. Eugenio Natarajan Chloride [Moles/Vol] 101 mmol/L Normal 98-107 [facility] Comment on above: Performed By: #### C MP, LIPA ####[facility] [address] [place], [place] [address]Dr. Eugenio Natarajan CO2 [Moles/Vol] 28.1 mmol/L Normal 21.0-32.0 [facility] Comment on above: Performed By: #### C MP, LIPA ####[facility] [address] [place], [place] [address]Dr. Eugenio Natarajan Creatinine [Mass/Vol] 0.67 mg/dL Normal 0.55-1.02 [facility] Comment on above: Performed By: #### C MP, LIPA ####[facility] [address] [place], [place] [address]Dr. Eugenio Delgado EGFR-AF SAO TOMEAN >60 Normal >=60 [facility] Comment on above: Performed By: #### C MP, LIPA ####[facility] [address] [place], [place] [address]Dr. Erayanely Delgado EGFR-NON AF SAO TOMEAN >60 Normal >=60 [facility] Comment on above: Performed By: #### C MP, LIPA ####[facility] [address] [place], [place] [address]Dr. Eugenio Natarajan Globulin (S) [Mass/Vol] 3.8 g/dL Normal [facility] Comment on above: Performed By: #### C MP, LIPA ####[facility] [address] [place] [address]Dr. Eugenio Natarajan Glucose [Mass/Vol] 87 mg/dL Normal 74-106 [facility] Comment on above: Performed By: #### C MP, LIPA ####[facility] [address] [place], [place] [address]Dr. Eugenio Delgado Potassium [Moles/Vol] 3.5 mmol/L Normal 3.5-5.1 [facility] Comment on above: Performed By: #### C JANNIE, LIPA ####[facility] [address] [place], [place] [address]Dr. Eugenio Natarajan Protein [Mass/Vol] 8.2 g/dL Normal 6.4-8.2 [facility] Comment on above: Performed By: #### C JANNIE, LIPA ####[facility] [address] [place], [place] [address]Dr. Erayanely Natarajan Sodium [Moles/Vol] 139 mmol/L Normal 136-145 [facility] Comment on above: Performed By: #### C JANNIE, LIPA ####[facility] [address] [place], [place] [address]Dr. Erayanely Natarajan Urea nitrogen [Mass/Vol] 13.0 mg/dL Normal 7.0-18.0 [facility] Comment on above: Performed By: #### C JANNIE, LIPA ####[facility] [address] [place], [place] [address]Dr. Erayanely Natarajan Urea nitrogen/Creatini ne [Mass ratio] 19.4 mg/mg Normal [facility] Comment on above: Performed By: #### C MP, LIPA ####[facility] [id number] [place], [place] [address]Dr. Erayanely Natarajan US SINGLE QUAD RT UPPERon US SINGLE QUAD RT UPPER EXAMINATION: US SINGLE QUAD RT UPPER HISTORY: Abdominal pain ; right abdomen and flank pain increasing in severity COMPARISON: Ultrasound right upper quadrant 07/15/2021 TECHNIQUE: Transabdominal evaluation of the right upper quadrant. FINDINGS: LIVER: Normal size and echotexture. Color Doppler demonstrates patent hepatic veins. PORTAL VEIN: Duplex Doppler demonstrates normal hepatopetal flow pattern with flow velocity averaging 57 cm/s. GALLBLADDER: No visible gallstones, wall thickening, or pericholecystic free fluid. Negative sonographic Pickering's sign. BILIARY: No abnormal dilation or stones. Common bile duct diameter is within normal limits. PANCREASE: No visible mass, abnormal atrophy, or duct dilation. KIDNEY: No hydronephrosis. No visible mass or stones. Size: 11.4 x 5.7 x 3.67 m IMPRESSION: 1. Normal right upper quadrant ultrasound. No suspicious findings to account for patient's symptoms. Electronically authenticated by: FITO ISLAS Date: 2022-06-11 15:06 Normal [facility] XR ABD FLAT_UPon 06-11-2022 XR ABD FLAT_UP EXAMINATION: XR ABD FLAT_UP HISTORY: Abdominal pain , constipation COMPARISON: No relevant comparison available. FINDINGS: BOWEL GAS PATTERN: Non-obstructed. No abnormal dilation or suspicious fluid levels. FREE AIR: None. CALCIFICATIONS: None significant. BONES: No fracture or visible bone lesion. OTHER: Negative. IMPRESSION: 1. Normal bowel gas pattern. No significant stool burden. Electronically authenticated by: FITO ISLAS Date: 2022-06-11 15:29 Normal [facility] PAP ACOG PANEL 2: 30 to 65on 12-02-2021 . . Normal [facility] Comment on above: Result Comment: Perf ormed at: WB Performed By: #### [id number] ####[facility] [address] [place] [address]Dr. Eugenio Natarajan Age Gdln ACOG Testing 30-65 Normal [facility] Comment on above: Performed By: #### [id number] ####[facility] [address] [place] [address]Dr. Eugenio Natarajan DIAGNOSIS: Comment Normal [facility] Comment on above: Result Comment: NEGA TIVE FOR INTRAEPITHELIAL LESION OR MALIGNANCY. Performed at: WB Performed By: #### [id number] ####[facility] [address] [place] [address]Dr. Eugenio Natarajan HPV Aptima Negative Normal Negative [facility] Comment on above: Result Comment: This nucleic acid amplification test detects fourteen high-risk HPV types (16,18,31,33,35,39,45,51,52,56,58,59,66,68) without differentiation. Performed at: =G Performed By: #### 4 [id number] ####[place] [address] [place] [address]DrGennaro Natarajan Methodology: Comment Normal [facility] Comment on above: Result Comment: This liquid based ThinPrep(R) pap test was screened with the use of an image guided system. Performed at: WB Performed By: #### [id number] ####[place] [address]DrGennaro Natarajan Note: Comment Normal [facility] Comment on above: Result Comment: The Pap smear is a screening test designed to aid in the detection of premalignant and malignant conditions of the uterine cervix. It is not a diagnostic procedure and should not be used as the sole means of detecting cervical cancer. Both false-positive and false-negative reports do occur. . Performed at: WB Performed By: #### [id number] ####[facility] [address] [place], [place] [address]DrGennaro Natarajan Performed by: Comment Normal [facility] Comment on above: Result Comment: Maci Solo Box Sealing Inspector (ASCP) Performed at: WB Performed By: #### 4 [id number] ####[facility] [address] [place], [place] [address]DrGennaro Natarajan Specimen adequacy: Comment Normal [facility] Comment on above: Result Comment: Sati sfactory for evaluation. No endocervical component is identified. Performed at: WB Performed By: #### 4 [id number] ####[facility] [address] [place] [address]DrGennaro Natarajan VAGINITIS/VAGINOSIS DNA PROB Niranjan 11-27-2021 Afshan species Negative Normal Negative [facility] Comment on above: Performed By: #### V AGINT #### [facility] [address] [address] [address] Eugenio Natarajan Gardnerella vaginalis Negative Normal Negative [facility] Comment on above: Performed By: #### V AGINT #### [facility] [address] [address] [address] Eugenio Natarajan Trichomonas vaginalis Negative Normal Negative [facility] Comment on above: Performed By: #### V AGINT #### [facility] [address] [address] [address] Eugenio Natarajan COVID Quick Testingon 2021 Result Negative [email or web address] Other MG MAMM LT DIAG FUon 022 MG MAMM LT DIAG FU Patient: LANCE ROBLERO Exam Date: 11/10/2021 : 1980 Gender:F Ordering : DR SARAH KEYS . Admission #: [id number] Family : Order #: [id number] CLICK HERE TO VIEW EXAM RADIOLOGY REPORT PROCEDURE: MAMMOGRAM LEFT DIAGNOSTIC DIGITAL FOLLOW UP, 11/10/2021, 09:14 ULTRASOUND BREAST LEFT LIMITED, 11/10/2021, 09:50 COMPARISON: MG MAMM SCREEN 3D JASON CAD, 10/26/2021. MG MAMM SCREEN 3D JASON CAD, 10/23/2020. INDICATIONS: Abnormal findings on diagnostic imaging of breast Calculator Name NCI Breast Cancer Risk Assessment Tool 5 Year Breast Cancer Risk 0.50% Lifetime Breast Cancer Risk 8.20% Personal Breast Cancer No Personal Ovarian Cancer No Treatments None Family Cancers None LOCATION: [facility] BREAST COMPOSITION: Extremely dense, which lowers the sensitivity of mammography. FINDINGS: DIAGNOSTIC CATEGORY 2--BENIGN FINDING: LEFT BREAST: Spot magnification views demonstrate persistence of an 8 mm partially circumscribed mass within anterior breast, upper inner quadrant. Ultrasound evaluation demonstrates an 8 mm benign-appearing cyst at the 10 o'clock position, 0.7 cm from the nipple. Additional adjacent benign-appearing cysts. Annual screening mammography is recommended. RECOMMENDATIONS: ROUTINE MAMMOGRAM AND CLINICAL EVALUATION IN 12 MONTHS. PLEASE NOTE: A NORMAL MAMMOGRAM DOES NOT EXCLUDE THE POSSIBILITY OF BREAST CANCER. A CLINICALLY SUSPICIOUS PALPABLE LUMP SHOULD BE BIOPSIED. Dictated by: Fito Islas M.D. on 11/10/2021 at 10:32 Approved by: Fito Islas M.D. on 11/10/2021 at 10:35 Normal [facility] US BREAST LEFT LIMITEDon US BREAST LEFT LIMITED Patient: LANCE ROBLERO Exam Date: 11/10/2021 : 1980 Gender:F Ordering : DR SARAH KEYS . Admission #: [id number] Family : Order #: [id number] CLICK HERE TO VIEW EXAM RADIOLOGY REPORT PROCEDURE: MAMMOGRAM LEFT DIAGNOSTIC DIGITAL FOLLOW UP, 11/10/2021, 09:14 ULTRASOUND BREAST LEFT LIMITED, 11/10/2021, 09:50 COMPARISON: MG MAMM SCREEN 3D JASON CAD, 10/26/2021. MG MAMM SCREEN 3D JASON CAD, 10/23/2020. INDICATIONS: Abnormal findings on diagnostic imaging of breast Calculator Name NCI Breast Cancer Risk Assessment Tool 5 Year Breast Cancer Risk 0.50% Lifetime Breast Cancer Risk 8.20% Personal Breast Cancer No Personal Ovarian Cancer No Treatments None Family Cancers None LOCATION: [facility] BREAST COMPOSITION: Extremely dense, which lowers the sensitivity of mammography. FINDINGS: DIAGNOSTIC CATEGORY 2--BENIGN FINDING: LEFT BREAST: Spot magnification views demonstrate persistence of an 8 mm partially circumscribed mass within anterior breast, upper inner quadrant. Ultrasound evaluation demonstrates an 8 mm benign-appearing cyst at the 10 o'clock position, 0.7 cm from the nipple. Additional adjacent benign-appearing cysts. Annual screening mammography is recommended. RECOMMENDATIONS: ROUTINE MAMMOGRAM AND CLINICAL EVALUATION IN 12 MONTHS. PLEASE NOTE: A NORMAL MAMMOGRAM DOES NOT EXCLUDE THE POSSIBILITY OF BREAST CANCER. A CLINICALLY SUSPICIOUS PALPABLE LUMP SHOULD BE BIOPSIED. Dictated by: Fito Islas M.D. on 11/10/2021 at 10:32 Approved by: Fito Islas M.D. on 11/10/2021 at 10:35 Normal [facility] MG MAMM SCREEN 3D JASON CADon 10-26-2021 MG MAMM SCREEN 3D JASON CAD Patient: LANCE ROBLERO Exam Date: 10/26/2021 : 1980 Gender:F Ordering : DR SARAH KEYS . Admission #: [id number] Family : Order #: [id number] CLICK HERE TO VIEW EXAM RADIOLOGY REPORT PROCEDURE: MAMMOGRAM SCREENING 3D BILATERAL CAD COMPARISON: MG MAMM SCREEN 3D JASON CAD, 10/23/2020. MG MAMM JASON DIAG W CAD, 08/02/2018. INDICATIONS: Screening mammography Calculator Name NCI Breast Cancer Risk Assessment Tool 5 Year Breast Cancer Risk 0.50% Lifetime Breast Cancer Risk 8.20% Personal Breast Cancer No Personal Ovarian Cancer No Treatments None Family Cancers None LOCATION: [facility] BREAST COMPOSITION: Extremely dense, which lowers the sensitivity of mammography. FINDINGS: DIAGNOSTIC CATEGORY 0--INCOMPLETE: NEED ADDITIONAL IMAGING EVALUATION. RIGHT BREAST: No significant suspicious finding. No significant change has occurred. LEFT BREAST: 9 x 8 x 5 mm partially circumscribed mass within the lower-inner quadrant, anterior breast. Spot magnification views and ultrasound evaluation recommended. RECOMMENDATIONS: ADDITIONAL MAMMOGRAPHIC VIEWS REQUIRED: LEFT BREAST - LEFT CRANIOCAUDAL SPOT MAGNIFICATION VIEW - LEFT OBLIQUE SPOT MAGNIFICATION VIEW - ULTRASOUND: LEFT BREAST PLEASE NOTE: A NORMAL MAMMOGRAM DOES NOT EXCLUDE THE POSSIBILITY OF BREAST CANCER. A CLINICALLY SUSPICIOUS PALPABLE LUMP SHOULD BE BIOPSIED. Dictated by: Fito Islas M.D. on 10/26/2021 at 13:55 Approved by: Fito Islas M.D. on 10/26/2021 at 14:11 Normal [facility] CBC AUTO DIFFon 07-23-2021 BASO # 0.0 103/ul Normal 0.0-0.1 [facility] Comment on above: Performed By: #### C BC #### [facility] [address] [address] [address] Eugenio Natarajan Basophils/100 WBC (Bld) 0.4 % Normal 0.2-2.0 [facility] Comment on above: Performed By: #### C BC #### [facility] [address] [address] [address] Eugenio Natarajan EO # 0.1 103/ul Normal 0.0-0.7 [facility] Comment on above: Performed By: #### C BC #### [facility] [address] [address] [address] Eugenio Natarajan Eosinophils/100 WBC (Bld) 1.2 % Normal 0.9-7.0 [facility] Comment on above: Performed By: #### C BC #### [facility] [address] [place] [address] Dr. Eugenio Natarajan Erythrocyte distribution width (RBC) [Ratio] 11.8 % Normal 11.0-15.0 [facility] Comment on above: Performed By: #### C BC #### [facility] [address] [place] [address] Dr. Eugenio Natarajan Hematocrit (Bld) [Volume fraction] 39.2 % Normal 36.0-48.0 [facility] Comment on above: Performed By: #### C BC #### [facility] [address] [place] [address] Dr. Eugenio Natarajan Hemoglobin (Bld) [Mass/Vol] 12.8 g/dL Normal 12.0-16.0 [facility] Comment on above: Performed By: #### C BC #### [facility] [address] [place] [address] Dr. Eugenio Natarajan IG # 0.02 10e3/ul Normal 0.00-0.03 [facility] Comment on above: Performed By: #### C BC #### [facility] [address] [place] [address] Dr. Eugenio Natarajan IG % 0.3 % Normal 0.0-0.5 [facility] Comment on above: Performed By: #### C BC #### [facility] [address] [place] [address] Dr. Eugenio Natarajan LYMPH # 1.6 103/ul Normal 1.2-3.8 [facility] Comment on above: Performed By: #### C BC #### [facility] [address] [place] [address] Dr. Eugenio Natarajan Lymphocytes/100 WBC (Bld) 22.3 % Normal 20.5-60.0 [facility] Comment on above: Performed By: #### C BC #### [facility] [address] [place] [address] Dr. Eugenio Natarajan MANUAL DIFF REQ NO Normal [facility] Comment on above: Performed By: #### C BC #### [facility] [address] [place] [address] Dr. Eugenio Natarajan MCH (RBC) [Entitic mass] 29.7 pg Normal 26.7-34.0 [facility] Comment on above: Performed By: #### C BC #### [facility] [address] [place] [address] Dr. Eugenio Natarajan MCHC (RBC) [Mass/Vol] 32.7 g/dL Normal 29.9-35.2 [facility] Comment on above: Performed By: #### C BC #### [facility] [address] [place] [address] Dr. Eugenio Natarajan MCV (RBC) [Entitic vol] 91.0 fL Normal 81.0-99.0 [facility] Comment on above: Performed By: #### C BC #### [facility] [address] [place] [address] Dr. Eugenio Natarajan MONO # 0.3 103/ul Normal 0.3-0.8 [facility] Comment on above: Performed By: #### C BC #### [facility] [address] [place] [address] Dr. Eugenio Natarajan Monocytes/100 WBC (Bld) 4.5 % Normal 1.7-12.0 [facility] Comment on above: Performed By: #### C BC #### [facility] [address] [place] [address] Dr. Eugenio Natarajan NEUT # 5.2 103/ul Normal 1.4-6.5 [facility] Comment on above: Performed By: #### C BC #### [facility] [address] [place] [address] Dr. Eugenio Natarajan Neutrophils/100 WBC (Bld) 71.3 % Normal 43.0-75.0 [facility] Comment on above: Performed By: #### C BC #### [facility] [address] [place] [address] Dr. Eugenio Natarajan Platelet mean volume (Bld) [Entitic vol] 8.6 fL Critically low 9.5-13.5 [facility] Comment on above: Performed By: #### C BC #### [facility] [address] [address] [address] Eugenio Natarajan PLT 320 103/ul Normal 150-450 [facility] Comment on above: Performed By: #### C BC #### [facility] [address] [place] [address] Dr. Eugenio Natarajan RBC 4.31 106/ul Normal 4.20-5.40 [facility] Comment on above: Performed By: #### C BC #### [facility] [address] [address] [address] Eugenio Natarajan WBC 7.3 103/ul Normal 4.0-11.0 [facility] Comment on above: Performed By: #### C BC #### [facility] [address] [place] [address] Dr. Eugenio Natarajan ER URINE PROFILEon 2 Bilirubin Ql (U) Negative Normal NEGATIVE [facility] Comment on above: Performed By: #### E RUR ####[facility] [address] [place], [place] [address]Dr. Eugenio Natarajan Clarity (U) CLEAR Normal CLEAR [facility] Comment on above: Performed By: #### E RUR ####[facility] [address] [place], [place] [address]Dr. Eugenio Natarajan Color (U) LT. YELLOW Normal YELLOW [facility] Comment on above: Performed By: #### E RUR ####[facility] [address] [place], [place] [address]Dr. Eugenio VALENCIAD A micrscopic examination will be performed if indicated. Normal [facility] Comment on above: Performed By: #### E RUR ####[facility] [address] [place], [place] [address]Dr. Eugenio Natarajan Glucose Ql (U) Negative Normal NEGATIVE [facility] Comment on above: Performed By: #### E RUR ####[facility] [address] [address]Dr. Eugenio Natarajan Hemoglobin Ql (U) Negative Normal NEGATIVE [facility] Comment on above: Performed By: #### E RUR ####[facility] [address] [place] [address]Dr. Eugenio Natarajan Ketones Ql (U) 15 mg/dl Abnormal NEGATIVE [facility] Comment on above: Performed By: #### E RUR ####[facility] [address] [place] [address]Dr. Eugenio Natarajan LEUKOCYTES Negative Normal NEGATIVE [facility] Comment on above: Performed By: #### E RUR ####[facility] [address] [place], [place] [address]Dr. Eugenio Natarajan Nitrite Ql (U) Negative Normal NEGATIVE [facility] Comment on above: Performed By: #### E RUR ####[facility] [address] [place], [place] [address]Dr. Eugenio Natarajan pH (U) 6.0 [pH] Normal 5-9 [facility] Comment on above: Performed By: #### E RUR ####[facility] [address] [place], [place] [address]Dr. Eugenio Natarajan SPEC GRAVITY 1.010 Normal 1.005-<=1.025 [facility] Comment on above: Performed By: #### E RUR ####[facility] [address] [place], [place] [address]Dr. Eugenio Natarajan UA PROTEIN Negative Normal NEGATIVE/ TRACE [facility] Comment on above: Performed By: #### E RUR ####[facility] [address] [place], [place] [address]Dr. Erayanely Natarajan UR MICRO IND NOT INDICATED Normal [facility] Comment on above: Performed By: #### E RUR ####[facility] [address] [place], [place] [address]Dr. Eugenio Natarajan Urobilinogen Qn (U) 0.2 {Wilmar'U}/dL Normal 0.2 - 1.0 [facility] Comment on above: Performed By: #### E RUR ####[facility] [address] [place], [place] [address]Dr. Eugenio Natarajan LIPASEon 07-23-2021 Lipase [Catalytic activity/Vol] 74.0 U/L Normal 73.0-393.0 [facility] Comment on above: Performed By: #### C MP, LIPA #### [facility] [address] [place] [address] Dr. Eugenio Natarajan PROF 14(COMP METB)on 022 Albumin [Mass/Vol] 4.1 g/dL Normal 3.4-5.0 [facility] Comment on above: Performed By: #### C MP, LIPA #### [facility] [address] [place] [address] Dr. Eugenio Natarajan Albumin/Globulin [Mass ratio] 1.2 {ratio} Normal [facility] Comment on above: Performed By: #### C JANNIE, LIPA #### [facility] [address] [place] [address] Dr. Eugenio Natarajan ALP [Catalytic activity/Vol] 50 U/L Normal 46-116 [facility] Comment on above: Performed By: #### C JANNIE, LIPA #### [facility] [address] [place] [address] Dr. Eugenio Natarajan ALT [Catalytic activity/Vol] 15 U/L Normal 14-59 [facility] Comment on above: Performed By: #### C JANNIE, LIPA #### [facility] [address] [place] [address] Dr. Eugenio Natarajan Anion gap [Moles/Vol] 13.6 mmol/L Normal [facility] Comment on above: Performed By: #### C MP, LIPA #### [facility] [address] [place] [address] Dr. Eugenio Natarajan AST [Catalytic activity/Vol] 14 U/L Critically low 15-37 [facility] Comment on above: Performed By: #### C MP, LIPA #### [facility] [address] [place] [address] Dr. Eugenio Natarajan Bilirubin [Mass/Vol] 1.3 mg/dL Critically high 0.2-1.0 [facility] Comment on above: Performed By: #### C MP, LIPA #### [facility] [address] [address] [address] Eugenio Natarajan Calcium [Mass/Vol] 8.3 mg/dL Critically low 8.5-10.1 [facility] Comment on above: Performed By: #### C MP, LIPA #### [facility] [address] [place] [address] Dr. Eugenio Natarajan Chloride [Moles/Vol] 99 mmol/L Normal 98-107 [facility] Comment on above: Performed By: #### C MP, LIPA #### [facility] [address] [place] [address] Dr. Eugenio Natarajan CO2 [Moles/Vol] 28.0 mmol/L Normal 21.0-32.0 [facility] Comment on above: Performed By: #### C MP, LIPA #### [facility] [address] [place] [address] Dr. Eugenio Natarajan Creatinine [Mass/Vol] 0.61 mg/dL Normal 0.55-1.02 [facility] Comment on above: Performed By: #### C MP, LIPA #### [facility] [address] [place] [address] Dr. Eugenio Natarajan EGFR-AF SAO TOMEAN >60 Normal >=60 [facility] Comment on above: Performed By: #### C MP, LIPA #### [facility] [address] [place] [address] Dr. Eugenio Natarajan EGFR-NON AF SAO TOMEAN >60 Normal >=60 [facility] Comment on above: Performed By: #### C MP, LIPA #### [facility] [address] [place] [address] Dr. Eugenio Natarajan Globulin (S) [Mass/Vol] 3.3 g/dL Normal [facility] Comment on above: Performed By: #### C MP, LIPA #### [facility] [address] [place] [address] Dr. Eugenio Natarajan Glucose [Mass/Vol] 82 mg/dL Normal 74-106 [facility] Comment on above: Performed By: #### C MP, LIPA #### [facility] [address] [place] [address] Dr. Eugenio Natarajan Potassium [Moles/Vol] 3.6 mmol/L Normal 3.5-5.1 [facility] Comment on above: Performed By: #### C MP, LIPA #### [facility] [address] [place] [address] Dr. Eugenio Natarajan Protein [Mass/Vol] 7.4 g/dL Normal 6.1-8.2 [facility] Comment on above: Performed By: #### C MP, LIPA #### [facility] [address] [place] [address] Dr. Eugenio Natarajan Sodium [Moles/Vol] 137 mmol/L Normal 136-145 [facility] Comment on above: Performed By: #### C MP, LIPA #### [facility] [address] [place] [address] Dr. Eugenio Natarajan Urea nitrogen [Mass/Vol] 8.0 mg/dL Normal 7.0-18.0 [facility] Comment on above: Performed By: #### C MP, LIPA #### [facility] [address] [place] [address] Dr. Eugenio Natarajan Urea nitrogen/Creatini ne [Mass ratio] 13.1 mg/mg Normal [facility] Comment on above: Performed By: #### C MP, LIPA #### [facility] [address] [place] [address] Dr. Eugenio Natarajan US SINGLE QUAD RT UPPERon US SINGLE QUAD RT UPPER EXAMINATION: US SINGLE QUAD RT UPPER HISTORY: Pain ; right upper quadrant pain for 4 days COMPARISON: No relevant comparison available. TECHNIQUE: Transabdominal evaluation of the right upper quadrant. FINDINGS: LIVER: Normal size and echotexture. Color Doppler demonstrates patent hepatic veins. PORTAL VEIN: Duplex Doppler demonstrates normal hepatopetal flow pattern with flow velocity averaging 35 cm/s. GALLBLADDER: No visible gallstones, wall thickening, or pericholecystic free fluid. Negative sonographic Pickering's sign. BILIARY: No abnormal dilation or stones. Common bile duct diameter is within normal limits. PANCREASE: No visible mass, abnormal atrophy, or duct dilation. KIDNEY: No hydronephrosis. No visible mass or stones. Size: 10.9 x 6.0 x 4.2 cm IMPRESSION: 1. No acute or suspicious findings to account for patient's symptoms. Electronically authenticated by: FITO ISLAS Date: 2021-07-23 15:01 Normal [facility] VAGINITIS/VAGINOSIS DNA PROB Niranjan 07-23-2021 Afshan species Negative Normal Negative [facility] Comment on above: Performed By: #### V AGINT #### [facility] [address] [place] [address] Dr. Eugenio Natarajan Gardnerella vaginalis Negative Normal Negative [facility] Comment on above: Performed By: #### V AGINT #### [facility] [address] [place] [address] Dr. Eugenio Natarajan Trichomonas vaginalis Negative Normal Negative [facility] Comment on above: Performed By: #### V AGINT #### [facility] [address] [place] [address] Dr. Eugenio Natarajan Coding Summary.on 04-08-2020 Coding Summary. CODING DATE: 04/08/[address] [facility] STATUS: Home (Routine DC) PAYOR: Medicaid EA DESCRIPTION [id number] LEVEL III MICROBIOLOGY TESTS ADMIT DX: REASON FOR VISIT DX: Z20.828 Contact with and (suspected) exposure to other viral communicable diseases FINAL DX: PRINCIPAL: Z20.828 Contact with and (suspected) exposure to other viral communicable diseases SECONDARY: PYMT PROC EAPG STAT DESCRIPTION DOCTOR NAME DATE NOTE: The code number assigned matches the documented diagnosis and / or procedure in the patient's chart. However, the narrative phrase printed from the coding software may appear abbreviated, or result in slightly different terminology. Coded By: Lelia Lam CphT Date Saved: 04/08/2020 07:50 pm Normal [facility] SARS-CoV-2, NAAon 04-04-2020 SARS CORONAVIRUS 2 RNA:PRTHR:PT:RESP IRATORY:ORD:PROBE .AMP.TAR Not Detected Not Detected [facility] Comment on above: Result Comment: This nucleic acid amplification test was developed and its performance characteristics determined by [facility]. Nucleic acid amplification tests include PCR and TMA. This test has not been FDA cleared or approved. This test has been authorized by FDA under an Emergency Use Authorization (EUA). This test is only authorized for the duration of time the declaration that circumstances exist justifying the authorization of the emergency use of in vitro diagnostic tests for detection of SARS-CoV-2 virus and/or diagnosis of COVID-19 infection under section 564(b)(1) of the Act, 21 U.S.C. 360bbb-3(b) (1), unless the authorization is terminated or revoked sooner. When diagnostic testing is negative, the possibility of a false negative result should be considered in the context of a patient's recent exposures and the presence of clinical signs and symptoms consistent with COVID-19. An individual without symptoms of COVID-19 and who is not shedding SARS-CoV-2 virus would expect to have a negative (not detected) result in this assay. Performed at: [facility] [place] [facility] [address] [facility] [place] [id number] MD Ross García Performed By: #### S ARS-CoV-2, BEN #### [facility] [address] [place] [address] Physician Orderon 04-01-2020 Physician Order [id number] .[id number]:127 Normal [facility] Vital Signs Date Time Vital Sign Value Performing Clinician Facility 04-05-2023 10:30-0500 Body height 163.83 cm Palm Other [facility] Other 04-05-2023 10:30-0500 Body mass index (BMI) [Ratio] 28.22 kg/m2 [facility] Other [facility] Other 04-05-2023 10:30-0500 Body temperature 97.3 [degF] [facility] Other [facility] Other 04-05-2023 10:30-0500 Body weight 75.75 kg Palm Other [facility] Other 04-05-2023 10:30-0500 Diastolic blood pressure 78 mm[Hg] Nolan Wanda Other [facility] Other 04-05-2023 10:30-0500 Respiratory rate 20 /min Nolan Wanda Other [facility] Other 04-05-2023 10:30-0500 SaO2% (BldA) [Mass fraction] 98 % Nolan Wanda Other [facility] Other 04-05-2023 10:30-0500 Systolic blood pressure 130 mm[Hg] Nolan Wanda Other [facility] Other 03-14-2023 13:30-0500 Body height 163.83 cm Nolan Wanda Other [facility] Other 03-14-2023 13:30-0500 Body mass index (BMI) [Ratio] 27.54 kg/m2 Nolan Wanda Other [facility] Other 03-14-2023 13:30-0500 Body temperature 98.5 [degF] Nolan Wanda Other [facility] Other 03-14-2023 13:30-0500 Body weight 73.94 kg Nolan Wanda Other [facility] Other 03-14-2023 13:30-0500 Diastolic blood pressure 80 mm[Hg] Nolan Wanda Other [facility] Other 03-14-2023 13:30-0500 Respiratory rate 20 /min Nolan Wanda Other [facility] Other 03-14-2023 13:30-0500 SaO2% (BldA) [Mass fraction] 98 % Nolan Wanda Other [facility] Other 03-14-2023 13:30-0500 Systolic blood pressure 118 mm[Hg] Nolan Wanda Other [facility] Other 05-04-2022 11:15-0500 Body height 163.83 cm Nolan Wanda Other [facility] Other 05-04-2022 11:15-0500 Body mass index (BMI) [Ratio] 25.85 kg/m2 Nolan Wanda Other [facility] Other 05-04-2022 11:15-0500 Body temperature 97.3 [degF] Nolan Wanda Other [facility] Other 05-04-2022 11:15-0500 Body weight 69.4 kg Nolan Wanda Other [facility] Other 05-04-2022 11:15-0500 Diastolic blood pressure 62 mm[Hg] Nolan Wanda Other [facility] Other 05-04-2022 11:15-0500 Respiratory rate 20 /min Nolan Wanda Other [facility] Other 05-04-2022 11:15-0500 Systolic blood pressure 106 mm[Hg] Nolan Wanda Other [facility] Other 11-12-2021 16:45-0400 Body height 163.83 cm Nolan Wanda Other [facility] Other 11-12-2021 16:45-0400 Body mass index (BMI) [Ratio] 25.01 kg/m2 Nolan Wanda Other [facility] Other 11-12-2021 16:45-0400 Body temperature 98.3 [degF] Nolan Wanda Other [facility] Other 11-12-2021 16:45-0400 Body weight 67.13 kg Nolan Wanda Other [facility] Other 11-12-2021 16:45-0400 Diastolic blood pressure 68 mm[Hg] Nolan Wanda Other [facility] Other 11-12-2021 16:45-0400 Respiratory rate 20 /min Nolan Wanda Other [facility] Other 11-12-2021 16:45-0400 SaO2% (BldA) [Mass fraction] 98 % Nolan Wanda Other [facility] Other 11-12-2021 16:45-0400 Systolic blood pressure 110 mm[Hg] Nolan Wanda Other [facility] Other 07-24-2021 10:00-0400 Body height 163.83 cm Nolan Wanda Other [facility] Other 07-24-2021 10:00-0400 Body mass index (BMI) [Ratio] 25.68 kg/m2 Nolan Wanda Other [facility] Other 07-24-2021 10:00-0400 Body temperature 98.9 [degF] Nolan Wanda Other [facility] Other 07-24-2021 10:00-0400 Body weight 68.95 kg Nolan Wanda Other [facility] Other 07-24-2021 10:00-0400 Diastolic blood pressure 68 mm[Hg] Nolan Wanda Other [facility] Other 07-24-2021 10:00-0400 Respiratory rate 20 /min Nolan Wanda Other [facility] Other 07-24-2021 10:00-0400 SaO2% (BldA) [Mass fraction] 96 % Nolan Wanda Other [facility] Other 07-24-2021 10:00-0400 Systolic blood pressure 118 mm[Hg] Nolan Wanda Other [facility] Other 04-09-2021 17:45-0500 Body height 163.83 cm Nolan Wanda Other [facility] Other 04-09-2021 17:45-0500 Body mass index (BMI) [Ratio] 25.52 kg/m2 Nolan Wanda Other [facility] Other 04-09-2021 17:45-0500 Body temperature 98.4 [degF] Nolan Wanda Other [facility] Other 04-09-2021 17:45-0500 Body weight 68.49 kg Nolan Wanda Other [facility] Other 04-09-2021 17:45-0500 Diastolic blood pressure 60 mm[Hg] Nolan Wanda Other [facility] Other 04-09-2021 17:45-0500 Respiratory rate 20 /min Nolan Wanda Other [facility] Other 04-09-2021 17:45-0500 SaO2% (BldA) [Mass fraction] 98 % Nolan Wanda Other [facility] Other 04-09-2021 17:45-0500 Systolic blood pressure 98 mm[Hg] Nolan Wanda Other [facility] Other Encounters Encounter Date Encounter Type Care Provider Facility Start: 04-29-2023 Chart abstracting Georgina GEORGE Work Phone: [facility] Start: 04-18-2023 End: 04-18-2023 ambulatory Imad Asaad Other [facility] Other Start: 04-18-2023 Telephone encounter Imad Asaad [facility] Start: 04-12-2023 End: 04-12-2023 ambulatory Nolan Wanda Other [facility] Other Start: 04-12-2023 Telephone encounter Nolan Wanda [facility] Start: 04-07-2023 End: 04-07-2023 ambulatory Nolan Wanda Other [facility] Other Start: 04-07-2023 Telephone encounter Nolan Wanda [facility] Start: 04-06-2023 End: 04-06-2023 ambulatory Nolan Wanda Other [facility] Other Start: 04-06-2023 Telephone encounter Nolan Wanda [facility] Start: 04-05-2023 End: 04-05-2023 ambulatory Nolan Wanda Other [facility] Other Start: 04-05-2023 Office outpatient vi sit 25 minutes Nolan Wanda [facility] Start: 04-05-2023 Telephone encounter Nolan Wanda [facility] Start: 03-14-2023 End: 03-14-2023 ambulatory Nolan Wanda Other [facility] Other Start: 03-14-2023 Office outpatient vi sit 15 minutes Nolan Wanda [facility] Start: 03-14-2023 Telephone encounter Nolan Wanda [facility] Start: 02-14-2023 End: 02-14-2023 ambulatory Nolan Wanda Other [facility] Other Start: 02-14-2023 Telephone encounter Nolan Wanda [facility] Start: 07-28-2022 End: 07-28-2022 ambulatory Nolan Wanda Other [facility] Other Start: 07-28-2022 Telephone encounter Nolan Wanda [facility] Start: 07-08-2022 End: 07-08-2022 ambulatory Nolan Wanda Other [facility] Other Start: 07-08-2022 Telephone encounter Nolan Wanda [facility] Start: 06-11-2022 End: 06-11-2022 ambulatory Fito Islas Facility: Start: 05-10-2022 End: 05-10-2022 ambulatory Nolan Wanda Other [facility] Other Start: 05-10-2022 Telephone encounter Nolan Wanda [facility] Start: 05-04-2022 End: 05-04-2022 ambulatory Nolan Wanda Other [facility] Other Start: 05-04-2022 Office outpatient vi sit 15 minutes Nolan Wanda [facility] Start: 03-17-2022 End: 03-17-2022 ambulatory Nolan Wanda Other [facility] Other Start: 03-17-2022 Telephone encounter Nolan Wanda [facility] Start: 02-08-2022 End: 02-08-2022 ambulatory Nolan Wanda Other [facility] Other Start: 02-08-2022 Telephone encounter Nolan Wanda [facility] Start: 01-04-2022 End: 01-04-2022 ambulatory Nolan Wanda Other [facility] Other Start: 01-04-2022 Telephone encounter Nolan Wanda [facility] Start: 11-24-2021 End: 11-24-[address] NOLAN Lewis WANDA Facility:[facility] Start: 11-12-2021 End: 11-12-2021 ambulatory Nolan Wanda Other [facility] Other Start: 11-12-2021 Office outpatient vi sit 15 minutes Nolan Wanda [facility] Start: 11-10-2021 End: 11-11-[address] NOLAN Lewis WANDA Facility:[facility] Start: 10-26-2021 End: 10-27-[address] NOLAN Lewis WANDA Facility:[facility] Start: 10-19-2021 End: 10-19-2021 ambulatory Nolan Wanda Other [facility] Other Start: 10-19-2021 Telephone encounter Nolan Wanda [facility] Start: 08-13-2021 End: 08-13-2021 ambulatory Nolan Wanda Other [facility] Other Start: 08-13-2021 Telephone encounter Nolan Wanda [facility] Start: 08-10-2021 End: 08-10-2021 ambulatory Nolan Wanda Other [facility] Other Start: 08-10-2021 Telephone encounter Nolan Wanda [facility] Start: 07-24-2021 End: 07-24-2021 ambulatory Nolan Wanda Other [facility] Other Start: 07-24-2021 Office outpatient vi sit 15 minutes Nolan Wanda [facility] Start: 07-23-2021 End: 07-23-[address] NOLAN MUÑOZ Facility:[facility] Start: 07-21-2021 End: 07-21-[address] SARAH KEYS . Facility:[facility] Start: 05-06-2021 End: 05-06-2021 ambulatory Nolan Wanda Other [facility] Other Start: 05-06-2021 Telephone encounter Nolan Wanda [facility] Start: 04-17-2021 End: 04-17-2021 ambulatory Nolan Wanda Other [facility] Other Start: 04-17-2021 Telephone encounter Nolan Wanda [facility] Start: 04-14-2021 End: 04-14-2021 ambulatory Nolan Wanda Other [facility] Other Start: 01-18-2022 Telephone encounter Nolan Wanda [facility] Start: 04-09-2021 End: 04-09-2021 ambulatory Nolan Wanda Other [facility] Other Start: 04-09-2021 Office outpatient vi sit 15 minutes Nolan Wanda [facility] Plan of Treatment Date Care Activity Detail Author Start: 05-03-2023 End: 05-03-2023 Patient encounter procedure 05/03/2023 11:00 AM EST Office Visit [facility] [address] [place] [id number] Georgina Dobbs PA [address] [place] [address] Well woman exam with routine gynecological exam [facility] Comment on above: Well woman exam with routine gynecological exam Immunizations Immunization Date Immunization Notes Care Provider Fa cility NEGATED: Highlighted row has not occurred!10-15-2019 influenza, injectable, quadrivalent, contains preservative Patient Objection Nolan Wanda Other [facility] Other NEGATED: Highlighted row has not occurred!02-28-2018 influenza, injectable, quadrivalent, contains preservative Patient Objection Nolan Wanda Other [facility] Other NEGATED: Highlighted row has not occurred!01-12-2018 influenza, injectable, quadrivalent, contains preservative Patient Objection Nolan Wanda Other [facility] Other NEGATED: Highlighted row has not occurred!07-05-2017 influenza, injectable, quadrivalent, contains preservative Patient Objection Nolna Wanda Other [facility] Other NEGATED: Highlighted row has not occurred!03-31-2017 influenza, injectable, quadrivalent, contains preservative Patient Objection Nolan Wanda Other [facility] Other NEGATED: Highlighted row has not occurred!06-01-2016 influenza, injectable, quadrivalent, contains preservative Patient Objection Nolan Wanda Other [facility] Other Payers Date Payer Category Payer Unknown [id number] 2.16.84 [id number] 1980 Unknown [id number] 2.16.84 [id number] 1980 Unknown [id number] 2.16.84 [id number] 1980 Unknown [id number] 2.16.84 [id number] 1980 Unknown [id number] 2.16.84 [id number] 1980 Unknown [id number] 2.16.84 [id number] 1959 Unknown [id number] 2.1 [id number] 1959 Unknown [id number] Private Health Insurance [id number] Unknown [id number] Social History Date Type Detail Facility Unknown if ever smoked [facility] Other Sex Assigned At [facility] Other Start: 04-29-2023 Tobacco smoking status NHIS Never smoked tobacco [facility] Start: 04-29-2023 Alcohol intake Lifetime non-d danny (finding) [facility] Start: 04-29-2023 Alcohol Comment Caffeine intake: non e [facility] Start: 1980 Sex Assigned At Not on file [facility] Clinical Notes 04-28-2019 to 04-12-2023 Note Date & Type Note Facility 04-12-2023 Evaluation note Encounter Date Diagnosis Assessment Notes Mar, Abdominal bloating (ICD-10 - R14.0) [facility] Other 01-11-2024 Evaluation note* Encounter Date Diagnosis Assessment Notes Treatment Notes Treatment Clinical Notes Mar, Abdominal bloating (ICD-10 - R14.0) [facility] Other 01-09-2024 Evaluation note* Encounter Date Diagnosis Assessment Notes Treatment Notes Treatment Clinical Notes Mar, Right upper quadrant pain (ICD-10 - R10.11) Etiology of this unclear, and patient did have a normal ultrasound. Therefore I would recommend that we pursue HIDA scan to look at the functionality. She voices agreement and understanding. Mar, Bowel habit changes (ICD-10 - R19.4) Lengthy discussion with patient today that she really needs to see gastroenterology. She really needs to have a scope, as her symptoms sound IBS in nature, but that is a diagnosis of exclusion and really needs the full workup. She is agreeable. Mar, Fatigue, unspecified type (ICD-10 - R53.83) We will call patient with results. Mar, Nausea and vomiting, unspecified vomiting type (ICD-10 - R11.2) E Rx sent. No other change today. [facility] Other 01-09-2024 Evaluation note* Encounter Date Diagnosis Assessment Notes Treatment Notes Treatment Clinical Notes Mar, RUQ abdominal pain (ICD-10 - R10.11) [facility] Other 12-18-2023 Evaluation note* Encounter Date Diagnosis Assessment Notes Treatment Notes Treatment Clinical Notes Feb, Red eyes (ICD-10 - H57.89) [facility] Other 12-18-2023 Evaluation note* Encounter Date Diagnosis Assessment Notes Treatment Notes Treatment Clinical Notes Feb, Red eyes (ICD-10 - H57.89) Feb, Acute pharyngitis, unspecified (ICD-10 - J02.9) With all of this testing being negative, this most likely represents a viral infection. Patient to call if symptoms persist. She voices agreement and understanding. Work note given. [facility] Other 11-20-2023 Evaluation note* Encounter Date Diagnosis Assessment Notes Treatment Notes Treatment Clinical Notes Jan, Left foot pain (ICD-10 - M79.672) Jan, Seasonal allergies (ICD-10 - J30.2) Jan, Anxiety (ICD-10 - F41.9) [facility] Other 05-03-2023 Evaluation note* Encounter Date Diagnosis Assessment Notes Treatment Notes Treatment Clinical Notes July, Anxiety (ICD-10 - F41.9) [facility] Other 04-13-2023 Evaluation note* Encounter Date Diagnosis Assessment Notes Treatment Notes Treatment Clinical Notes Jun, Seasonal allergies (ICD-10 - J30.2) [facility] Other 02-13-2023 Evaluation note* Encounter Date Diagnosis Assessment Notes Treatment Notes Treatment Clinical Notes Apr, Anxiety (ICD-10 - F41.9) [facility] Other 02-07-2023 Evaluation note* Encounter Date Diagnosis Assessment Notes Treatment Notes Treatment Clinical Notes Apr, Abdominal bloating (ICD-10 - R14.0) eRX sent. SIBO? IBS? Pt would really need GI review to make formal diag...Call is she wants to proceed. Call with results of the meds.... Apr, Left foot pain (ICD-10 - M79.672) [facility] Other 12-21-2022 Evaluation note* Encounter Date Diagnosis Assessment Notes Treatment Notes Treatment Clinical Notes Feb, Anxiety (ICD-10 - F41.9) [facility] Other 11-14-2022 Evaluation note* Encounter Date Diagnosis Assessment Notes Treatment Notes Treatment Clinical Notes Jan, Left foot pain (ICD-10 - M79.672) [facility] Other 10-10-2022 Evaluation note* Encounter Date Diagnosis Assessment Notes Treatment Notes Treatment Clinical Notes Dec, Anxiety (ICD-10 - F41.9) [facility] Other 08-18-2022 Evaluation note* Encounter Date Diagnosis Assessment Notes Treatment Notes Treatment Clinical Notes Oct, Acute pharyngitis, unspecified (ICD-10 - J02.9) Oct, Left foot pain (ICD-10 - M79.672) [facility] Other 07-25-2022 Evaluation note* Encounter Date Diagnosis Assessment Notes Treatment Notes Treatment Clinical Notes Sep, Anxiety (ICD-10 - F41.9) Sep, Seasonal allergies (ICD-10 - J30.2) [facility] Other 05-19-2022 Evaluation note* Encounter Date Diagnosis Assessment Notes Treatment Notes Treatment Clinical Notes July, Seasonal allergies (ICD-10 - J30.2) [facility] Other 05-16-2022 Evaluation note* Encounter Date Diagnosis Assessment Notes Treatment Notes Treatment Clinical Notes July, Anxiety (ICD-10 - F41.9) [facility] Other 04-29-2022 Evaluation note* Encounter Date Diagnosis Assessment Notes Treatment Notes Treatment Clinical Notes Jun, Nausea and vomiting, unspecified vomiting type (ICD-10 - R11.2) Rx printed. Since patient is already seeing vast improvement, I think we will just print this prescription so she can fill if she finds it necessary. Otherwise we will simply continue to monitor. I discussed with patient that I think she had a viral gastroenteritis, and this should really clear within the next 5 to 7 days. She will call if symptoms persist. Jun, Generalized abdominal pain (ICD-10 - R10.84) [facility] Other 02-09-2022 Evaluation note* Encounter Date Diagnosis Assessment Notes Treatment Notes Treatment Clinical Notes Apr, Anxiety (ICD-10 - F41.9) [facility] Other 01-18-2022 Evaluation note* Encounter Date Diagnosis Assessment Notes Treatment Notes Treatment Clinical Notes Mar, Cough (ICD-10 - R05.9) [facility] Other 01-13-2022 Evaluation note* Encounter Date Diagnosis Assessment Notes Treatment Notes Treatment Clinical Notes Mar, Acute upper respiratory infection (ICD-10 - J06.9) E Rx sent. OARRs completed. Certainly patient to call if no improvement seen. [facility] Other 02-01-2020 History general Narrative - Reported* Type Description Date Medical History anxiety Medical History 04/2019 COVID Surgical History Appy age 14 Surgical History left foot surgery 08/2017 Surgical History VANNA - right ovary remains 04/16 19 Hospitalization History childbirth x 2 Hospitalization History appendacitis as a child Hospitalization History VANNA 03/2019 [email or web address] Other Evaluation noteNo InformationNort [email or web address] Other History general [facility]ative - [email or web address] Other Summary Purpose Family History No Family History Records FoundNo Family History Records Found Advance Directives No Advanced Directives Records FoundNo Advanced Directives Records Found Additional Source Comments INFORMATION SOURCE (unrecogn ized section and content) DATE CREATED AUTHOR [facility]/09/2020 [facility] DATE CREATED AUTHOR AUTHOR'S ORGANIZ ATION 06/16/2022 [facility] REASON FOR VISIT (unrecogniz ed section and content) coughing up green, bloody no se, neg home covid test. LAB , patient has been sick for almost 2 weeks, 2 negative home tests.. she tested last and this past tuesday..Clinical Acute Illnessrefill Xanaxstomach discomfort again, patient went to [place] ER last night, for vomiting, nausea, lightheadedness started last week and maybe was inflamed she says be drinking alcohol over the weekend- was told everything was normal, says she's feeling better now d/t pepcid, and zofran and was actually able to eat last nightrefill singulairrefill Xanaxrefillslab coughing for 1 week, sore scratchy throatrefill xanaxrefill ibuprofenrefill xanaxstomach bloating and pain, worse in last 2 moRefill alprazolamrefill singulairrefill xanaxmulti refillseye drops backorder*LAB* headache, congestion, ear pain, eyes hurt, chills, diarrhea, took test this morning- negative- sx's started tuesday w/ chills and headachelab results inquiryfill flagylfollow up referralPrem[facility] NorthClinical Acute IllnessMAIL PPW FOR RECORDS PERTAINING TO PATIENTS WHO ARE OR HAVE BEEN ENROLLED IN A CHEMICAL DEPENDENCY/SUBSTANCEABUSE PROGRAM, SOME INFORMATION MAY BE OMITTED. This clinical summary was aggregated from multiple sources. Caution should be exercised in using it in the provision of clinical care. This summary normalizes information from multiple sources, and as a consequence, information in this document may materially change the coding, format and clinical context of patient data. In addition, data may be omitted in some cases. CLINICAL DECISIONS SHOULD BE BASED ON THE PRIMARY CLINICAL RECORDS. [facility]. provides no warranty or guarantee of the accuracy or completeness of information in this document.
[2023-05-07 12:12] LABS: Age Gdln ACOG Testing Note (.); HPV Aptima Negative (Negative); IGP, Aptima HPV, rfx 16/18,45 Note (.)
== END 2023-05-03 22:17 | disposition home or self-care (01) ==
LOC: LAB 22:16
PROVIDERS: PCP Family Medicine; Visit Provider Physician Assistant
DX: Z01.419 Encounter for gynecological examination (general) (routine) without abnormal findings (principal)
CPT/HCPCS: 87624; G0145

== ENCOUNTER 2023-05-17 09:49 | Outpatient (OUT) | payer OTHER, SELFPAY ==
--- NOTE | 2023-05-17 09:53 | MM_ITS ---
Patient Name: LANCE REEDER MR#: [id number] : 1980 Exam Date: 05/17/2023 Ordering Doctor: DR Issa Maddox . RADIOLOGY REPORT PROCEDURE: MM TOMOSYNTHESIS SCREENING BI COMPARISON: MG MAMM LT DIAG FU, 11/10/2021. MG MAMM SCREEN 3D JASON CAD, 10/26/2021. MG MAMM JASON DIAG W CAD, 08/02/2018. INDICATIONS: screening Calculator Name NCI Breast Cancer Risk Assessment Tool 5 Year Breast Cancer Risk 0.50% Lifetime Breast Cancer Risk 8.10% Personal Breast Cancer No Personal Ovarian Cancer No Treatments None Family Cancers None LOCATION: [facility] BREAST COMPOSITION: Extremely dense, which lowers the sensitivity of mammography. FINDINGS: DIAGNOSTIC CATEGORY 0--INCOMPLETE: NEED ADDITIONAL IMAGING EVALUATION. RIGHT BREAST: No significant suspicious finding. No significant change has occurred. LEFT BREAST: 9 x 8 mm partially circumscribed mass versus cyst within anterior upper inner quadrant, approximately 3 o'clock which appears to have increased slightly since prior study. This was shown to represent a simple appearing cyst on prior ultrasound study, however, given the slight change additional confirmation is recommended. RECOMMENDATIONS: ADDITIONAL MAMMOGRAPHIC VIEWS REQUIRED: LEFT BREAST - LEFT CRANIOCAUDAL SPOT MAGNIFICATION VIEW - LEFT OBLIQUE SPOT MAGNIFICATION VIEW - ULTRASOUND: LEFT BREAST PLEASE NOTE: A NORMAL MAMMOGRAM DOES NOT EXCLUDE THE POSSIBILITY OF BREAST CANCER. A CLINICALLY SUSPICIOUS PALPABLE LUMP SHOULD BE BIOPSIED. Dictated by: Fito Islas M.D. on 05/19/2023 at 06:55 Approved by: iFto Islas M.D. on 05/19/2023 at 07:04
--- OUTSIDE RECORDS SUMMARY | 2023-05-17 10:08 | XMS_ITS | CCD ---
Author Name Unknown Address [address] [place] [address] Organization [facility] Care Team Providers Care Benzene Washer Operator Name Role Phone Nolan Muñoz Unavailable WANDA, DR NOLAN Lewis Primary Care Unavailable KARASIK ., DR SMITH Attending Unavailabl e KARASIK ., DR SMITH Consulting Unavailabl e KARASIK ., DR SMITH Admitting Unavailabl e Fito Islas Consulting Unavailable KARASIK ., DR SMITH Attending Unavailabl e KARASIK ., DR SMITH Consulting Unavailabl e KARASIK ., DR SMITH Admitting Unavailoxana e WANDA, DR NOLAN Lewis Primary Care [...] Fito Islas Consulting Unavailable PAY ., DR HE Admitting Unavailable PAY ., DR HE Attending Unavailable WANDA, DR NOLAN Lewis Primary Care Unavailable GRECHNY ., DORIS WESTON Consulting Unavailabl e WANDA, DR NOLAN Lewis Primary Care Unavailable KARASIK ., DR SMITH Attending Unavailabl e KARASIK ., DR SMITH Consulting Unavailabl e KARASIK ., DR SMITH Admitting Unavailabl e Fito Islas Consulting Unavailable Asaad, Imad Unavailable Unavailable Primary Care Provider GEORGINA Leary Attending Unavailable Nolan Muñoz MD Primary Care Provider Allergies Allergy Classification Reported Allergen(s) Allergy Type Date of Onset Reaction(s) Facility (20 sources) Amoxicillin Drug Allergy Unknown [facility] Eferio Other (20 sources) Clindamycin Drug Allergy 4 hives [facility] Healthcare Work Phone: (20 sources) fluticasone Drug Allergy Thrush [facility] Efer[facility] Other (20 sources) Penicillin Drug Allergy [facility] Eferio Other (20 sources) Sulfamethoxazole / Trimethoprim Drug Allergy [facility] Eferio Other (1 source) Amoxicillin Drug Allergy [facility] Repository (1 source) Clindamycin Drug Allergy [facility] Repository (1 source) fluticasone Drug Allergy [address] [facility] Repository (1 source) Penicillins Drug allergy (disorder) [address] [facility] Repository (1 source) Sulfamethoxazole / Trimethoprim Drug Allergy [facility] Repository (2 sources) Penicillin G Drug Allergy 4 [facility] Healthcare Medications Current Medications Medication Drug [...] 20 day(s) PRN Apr, Active Start: 02-04-2021 take 1 tablet by nakita th three times daily as needed for anxiety ALPRAZolam (Xanax) 0.5 MG tablet Take 0.5 mg by mouth 3 (three) times a day as needed for anxiety 0 Active ciprofloxacin 500 mg oral tablet (6 sources) [...] Start: 10-26-2017 take 1 tablet by mouth in the morning, then take 1 tablet by mouth in the evening, then take 1 tablet by mouth at bedtime ibuprofen 800 MG tablet Take 800 mg by mouth in the morning and 800 mg in the evening and 800 mg before bedtime. 0 02/14/2023 Active Metamucil Fiber 51.7 % (20 sources) [...] Start: 10-10-2018 take 1 tablet by mouth at bedtime montelukast (Singulair) 10 MG tablet Take 10 mg by mouth at bedtime 0 02/14/2023 Active ondansetron 4 mg oral tablet (11 sources) Serotonin-3 Receptor Antagonist take 1 tablet by mouth every four hours Ondansetron HCl 4 MG 1 tablet as needed Orally every 4 hrs for 3 days Active polyethylene glycol 3350 330689 mg / potassium chloride 2970 mg / sodium bicarbonate 6740 mg / sodium chloride 5860 mg / sodium sulfate 41848 mg powder for oral solution (1 source) [...] 07-24-2021 Episodic Other aftercare (1 source) Other ocean transportation intermediary (current) drug therapy; Translations: [OTH CORRECTION CURRENT DRUG THERAPY] Onset: 06-15-2022 Episodic Other [...] Test Name Value Interpretation Reference Range Facility IGP,APTIMA HPV,AGE GDLNon AGE GDLN ACOG TESTING Note . [facility] Comment on above: TESTS RESULT FLAG UN ITS REF RANGE LAB Clinician Provided Cytology Information Source.............Vagina No. of containers..01 ThinPrep Vial Age Donny TAYLOR Rosalie... 30 FLAG LEGEND: L-Low Normal,H-High Normal,LL-Alert Low,HH-Alert High <-Panic Low,>-Panic High,A-Abnormal,AA-Critical Abnormal Performed at: 01 =[address] [address] Selin Dixon MD, HPV APTIMA Negative Negative [facility] Comment on above: This nucleic acid am plification test detects fourteen high- risk HPV types (16,18,31,33,35,39,45,51,52,56,58,59,66,68) without differentiation. Performed at: =[address] [id number] Other Spatial Scientist: Selin Dixon MD, Phone: [phone] Performed at: [facility] [address] [place] [id number] Other Spatial Scientist: Jeremías Miles MD, Phone: [phone] IGP, APTIMA HPV, RFX 16/18,45 Note . [facility] Comment on above: TESTS RESULT FLAG UN ITS REF RANGE LAB DIAGNOSIS: 02 NEGATIVE FOR INTRAEPITHELIAL LESION OR MALIGNANCY. Specimen adequacy: 02 Satisfactory for evaluation. Performed by: 02 Ursula Allen Car Parker ([facility]) . 02 Note: Note 03 The Pap smear is a screening test designed to aid in the detection of premalignant and malignant conditions of the uterine cervix. It is not a diagnostic procedure and should not be used as the sole means of detecting cervical cancer. Both false-positive and false-negative reports do occur. Test Methodology: Note 03 This liquid based ThinPrep(R) pap test was screened with the use of an image guided system. HPV Genotype Reflex Note 02 Criteria not met, HPV Genotype not performed. FLAG LEGEND: L-Low Normal,H-High Normal,LL-Alert Low,HH-Alert High <-Panic Low,>-Panic High,A-Abnormal,AA-Critical Abnormal Performed at: 02 [facility] [address] [place] [address] Jeremías Miles MD, 03 WB [facility] [address] [address] Selin Dixon MD, SPATULA-ALONE VAGINA [facility] + FLU Quick Testingon 03-14-2023 SARS-CoV-2 (COVID-19) RNA BEN+probe Ql (Unsp spec) Negative [facility] Other COVID + FLU Quick Testing Negative [facility] Other Quick Strepon 03-14-2023 S. pyogenes Org specific cx Ql (Throat) Negative [facility] Other Quick Strep [facility] Other CBC AUTO DIFFon 06-11-2022 BASO # 0.1 103/ul Normal 0.0-0.1 [facility] Comment on above: Performed By: #### C BC #### [facility] [address] [address] [address] Eugenio Natarajan Basophils/100 WBC (Bld) 0.5 % Normal 0.2-2.0 [facility] Comment on above: Performed By: #### C BC #### [facility] [address] [address] [address] Eugenio Natarajan EO # 0.2 103/ul Normal 0.0-0.7 [facility] Comment on above: Performed By: #### C BC #### [facility] [address] [place] [address] Dr. Eugenio Natarajan Eosinophils/100 WBC (Bld) 2.6 % Normal 0.9-7.0 [facility] Comment on above: Performed By: #### C BC #### [facility] [address] [place] [address] Dr. Eugenio Natarajan Erythrocyte distribution width (RBC) [Ratio] 12.3 % Normal 11.0-15.0 [facility] Comment on above: Performed By: #### C BC #### [facility] [address] [place] [address] Dr. Eugenio Natarajan Hematocrit (Bld) [Volume fraction] 39.6 % Normal 36.0-48.0 [facility] Comment on above: Performed By: #### C BC #### [facility] [address] [place] [address] Dr. Eugenio Natarajan Hemoglobin (Bld) [Mass/Vol] 13.3 g/dL Normal 12.0-16.0 [facility] Comment on above: Performed By: #### C BC #### [facility] [address] [place] [address] Dr. Eugenio Natarajan IG # 0.03 10e3/ul Normal 0.00-0.03 [facility] Comment on above: Performed By: #### C BC #### [facility] [address] [place] [address] Dr. Eugenio Natarajan IG % 0.3 % Normal 0.0-0.[address] [facility] Comment on above: Performed By: #### C BC #### [facility] [address] [place] [address] Dr. Eugenio Natarajan LYMPH # 1.8 103/ul Normal 1.2-3.8 [facility] Comment on above: Performed By: #### C BC #### [facility] [address] [place] [address] Dr. Eugenio Natarajan Lymphocytes/100 WBC (Bld) 19.1 % Critically low 20.5-60.0 [facility] Comment on above: Performed By: #### C BC #### [facility] [address] [place] [address] Dr. Eugenio Natarajan MANUAL DIFF REQ NO Normal [facility] Comment on above: Performed By: #### C BC #### [facility] [address] [place] [address] Dr. Eugenio Natarajan MCH (RBC) [Entitic mass] 29.6 pg Normal 26.7-34.0 [facility] Comment on above: Performed By: #### C BC #### [facility] [address] [place] [address] Dr. Eugenio Natarajan MCHC (RBC) [Mass/Vol] 33.6 g/dL Normal 29.9-35.2 [facility] Comment on above: Performed By: #### C BC #### [facility] [address] [place] [address] Dr. Eugenio Natarajan MCV (RBC) [Entitic vol] 88.0 fL Normal 81.0-99.0 [facility] Comment on above: Performed By: #### C BC #### [facility] [address] [place] [address] Dr. Eugenio Natarajan MONO # 0.4 103/ul Normal 0.3-0.8 [facility] Comment on above: Performed By: #### C BC #### [facility] [address] [place] [address] Dr. Eugenio Natarajan Monocytes/100 WBC (Bld) 3.8 % Normal 1.7-12.0 [facility] Comment on above: Performed By: #### C BC #### [facility] [address] [address] [address] Eugenio Natarajan NEUT # 6.9 103/ul Critically high 1.4-6.5 [facility] Comment on above: Performed By: #### C BC #### [facility] [address] [address] [address] Eugenio Natarajan Neutrophils/100 WBC (Bld) 73.7 % Normal 43.0-75.0 [facility] Comment on above: Performed By: #### C BC #### [facility] [address] [address] [address] Eugenio Natarajan Platelet mean volume (Bld) [Entitic vol] 8.7 fL Critically low 9.5-13.5 [facility] Comment on above: Performed By: #### C BC #### [facility] [address] [place] [address] Dr. Eugenio Natarajan PLT 343 103/ul Normal 150-[address] [facility] Comment on above: Performed By: #### C BC #### [facility] [address] [place] [address] Dr. Eugenio Natarajan RBC 4.50 106/ul Normal 4.20-5.40 [facility] Comment on above: Performed By: #### C BC #### [facility] [address] [place] [address] Dr. Eugenio Natarajan WBC 9.3 103/ul Normal 4.0-11.0 [facility] Comment on above: Performed By: #### C BC #### [facility] [address] [address] [address] Eugenio Natarajan ER URINE PROFILEon 3 Bilirubin Ql (U) Negative Normal NEGATIVE [facility] Comment on above: Performed By: #### E RUR ####[facility] [address] [address]Dr. Eugenio Natarajan Clarity (U) CLEAR Normal CLEAR [facility] Comment on above: Performed By: #### E RUR ####[facility] [address] [address]Dr. Eugenio Natarajan Color (U) LT. YELLOW Normal YELLOW [facility] Comment on above: Performed By: #### E RUR ####[facility] [address] [place], [place] [address]Dr. Eugenio Natarajan ERUAHD A micrscopic examination will be performed if indicated. Normal [facility] Comment on above: Performed By: #### E RUR ####[facility] [address] [place], [place] [address]Dr. Eugenio Natarajan Glucose Ql (U) Negative Normal NEGATIVE [facility] Comment on above: Performed By: #### E RUR ####[facility] [address] [place], [place] [address]Dr. Eugenio Natarajan Hemoglobin Ql (U) Negative Normal NEGATIVE [facility] Comment on above: Performed By: #### E RUR ####[facility] [address] [place], [place] [address]Dr. Eugenio Natarajan Ketones Ql (U) Negative Normal NEGATIVE [facility] Comment on above: Performed By: #### E RUR ####[facility] [address] [place], [place] [address]Dr. Eugenio Natarajan LEUKOCYTES Negative Normal NEGATIVE [facility] Comment on above: Performed By: #### E RUR ####[facility] [address] [place], [place] [address]Dr. Eugenio Natarajan Nitrite Ql (U) Negative Normal NEGATIVE [facility] Comment on above: Performed By: #### E RUR ####[facility] [address] [place], [place] [address]Dr. Eugenio Natarajan pH (U) 6.0 [pH] Normal 5-[address] [facility] Comment on above: Performed By: #### E RUR ####[facility] [address] [place], [place] [address]Dr. Eugenio Natarajan SPEC GRAVITY 1.010 Normal 1.005-<=1.025 [facility] Comment on above: Performed By: #### E RUR ####[facility] [address] [place], [place] [address]Dr. Eugenio Natarajan UA PROTEIN Negative Normal NEGATIVE/ TRACE [facility] Comment on above: Performed By: #### E RUR ####[facility] [address] [address]Dr. Eugenio Natarajan UR MICRO IND NOT INDICATED Normal [facility] Comment on above: Performed By: #### E RUR ####[facility] [address] [address]Dr. Eugenio Natarajan Urobilinogen Qn (U) 0.2 {Wilmar'U}/dL Normal 0.2 - 1.[address] [facility] Comment on above: Performed By: #### E RUR ####[facility] [address] [place], [place] [address]Dr. Eugenio Natarajan LIPASEon 06-11-2022 Lipase [Catalytic activity/Vol] 116.0 U/L Normal 73.0-393.[address] [facility] Comment on above: Performed By: #### C MP, LIPA ####[facility] [address] [place], [place] [address]Dr. Eugenio Natarajan PROF 14(COMP METB)on 023 Albumin [Mass/Vol] 4.4 g/dL Normal 3.4-5.[address] [facility] Comment on above: Performed By: #### C MP, LIPA ####[facility] [address] [place], [place] [address]Dr. Eugenio Natarajan Albumin/Globulin [Mass ratio] 1.2 {ratio} Normal [facility] Comment on above: Performed By: #### C MP, LIPA ####[facility] [address] [address]Dr. Eugenio Natarajan ALP [Catalytic activity/Vol] 57 U/L Normal 46-[address] [facility] Comment on above: Performed By: #### C MP, LIPA ####[facility] [address] [address]Dr. Eugenio Natarajan ALT [Catalytic activity/Vol] 25 U/L Normal 14-[address] [facility] Comment on above: Performed By: #### C MP, LIPA ####[facility] [address] [address]Dr. Eugenio Natarajan Anion gap [Moles/Vol] 13.4 mmol/L Normal [facility] Comment on above: Performed By: #### C MP, LIPA ####[facility] [address] [place], [place] [address]Dr. Eugenio Natarajan AST [Catalytic activity/Vol] 20 U/L Normal 15-[address] [facility] Comment on above: Performed By: #### C MP, LIPA ####[facility] [address] [place], [place] [address]Dr. Eugenio Natarajan Bilirubin [Mass/Vol] 0.8 mg/dL Normal 0.2-1.[address] [facility] Comment on above: Performed By: #### C MP, LIPA ####[facility] [address] [place], [place] [address]Dr. Eugenio Natarajan Calcium [Mass/Vol] 9.2 mg/dL Normal 8.5-10.[address] [facility] Comment on above: Performed By: #### C MP, LIPA ####[facility] [address] [place], [place] [address]Dr. Eugenio Natarajan Chloride [Moles/Vol] 101 mmol/L Normal 98-[address] [facility] Comment on above: Performed By: #### C MP, LIPA ####[facility] [address] [place], [place] [address]Dr. Eugenio Natarajan CO2 [Moles/Vol] 28.1 mmol/L Normal 21.0-32.0 [facility] Comment on above: Performed By: #### C MP, LIPA ####[facility] [address] [place], [place] [address]Dr. Eugenio Natarajan Creatinine [Mass/Vol] 0.67 mg/dL Normal 0.55-1.[address] [facility] Comment on above: Performed By: #### C MP, LIPA ####[facility] [address] [place], [place] [address]Dr. Eugenio Natarajan EGFR-AF VENEZUELAN >60 Normal >=60 [facility] Comment on above: Performed By: #### C MP, LIPA ####[facility] [address] [address]Dr. Eugenio Natarajan EGFR-NON AF VENEZUELAN >60 Normal >=[address] [facility] Comment on above: Performed By: #### C MP, LIPA ####[facility] [address] [address]Dr. Eugenio Natarajan Globulin (S) [Mass/Vol] 3.8 g/dL Normal [facility] Comment on above: Performed By: #### C MP, LIPA ####[facility] [address] [address]Dr. Eugenio Natarajan Glucose [Mass/Vol] 87 mg/dL Normal 74-[address] [facility] Comment on above: Performed By: #### C MP, LIPA ####[facility] [address] [place], [place] [address]Dr. Eugenio Natarajan Potassium [Moles/Vol] 3.5 mmol/L Normal 3.5-5.[address] [facility] Comment on above: Performed By: #### C MP, LIPA ####[facility] [address] [place], [place] [address]Dr. Eugenio Natarajan Protein [Mass/Vol] 8.2 g/dL Normal 6.4-8.[address] [facility] Comment on above: Performed By: #### C MP, LIPA ####[facility] [address] [place], [place] [address]Dr. Eugenio Natarajan Sodium [Moles/Vol] 139 mmol/L Normal 136-[address] [facility] Comment on above: Performed By: #### C MP, LIPA ####[facility] [address] [place], [place] [address]Dr. Eugenio Natarajan Urea nitrogen [Mass/Vol] 13.0 mg/dL Normal 7.0-18.[address] [facility] Comment on above: Performed By: #### C MP, LIPA ####[facility] [address] [place], [place] [address]Dr. Eugenio Natarajan Urea nitrogen/Creatini ne [Mass ratio] 19.4 mg/mg Normal [facility] Comment on above: Performed By: #### C MP, LIPA ####[facility] [address] [place], [place] [address]Dr. Eugenio Natarajan US SINGLE QUAD RT UPPERon [...] by: FITO ISLAS Date: 2022-06-11 15:06 Normal [facility] XR ABD FLAT_UPon 06-11-2022 XR ABD FLAT_UP [...] by: FITO ISLAS Date: 2022-06-11 15:29 Normal [facility] PAP ACOG PANEL 2: 30 to 65on 12-02-2021 . . Normal [facility] Comment on above: Result Comment: Perf ormed at: WB Performed By: #### 4 [id number] ####[facility] [address] [place], [place] [address]KeGennaro Natarajan Age Gdln ACOG Testing 30-65 Normal [facility] Comment on above: Performed By: #### 4 [id number] ####[facility] [address] [address]Dr. Eugenio Natarajan DIAGNOSIS: Comment Normal [facility] Comment on above: Result Comment: NEGA TIVE FOR INTRAEPITHELIAL LESION OR MALIGNANCY. Performed at: WB Performed By: #### 4 [id number] ####[facility] [address] [address]Dr. Eugenio Natarajan HPV Aptima Negative Normal Negative [facility] Comment on above: Result Comment: This nucleic acid amplification test detects fourteen high-risk HPV types (16,18,31,33,35,39,45,51,52,56,58,59,66,68) without differentiation. Performed at: =G Performed By: #### 4 [id number] ####[facility] [address] [place], [place] [address]Dr. Eugenio Natarajan Methodology: Comment Normal [facility] Comment on above: Result Comment: This liquid based ThinPrep(R) pap test was screened with the use of an image guided system. Performed at: WB Performed By: #### 4 [id number] ####[facility] [address] [place], [place] [address]Dr. Eugenio Natarajan Note: Comment Normal [facility] Comment on above: Result Comment: The Pap smear is a screening test designed to aid in the detection of premalignant and malignant conditions of the uterine cervix. It is not a diagnostic procedure and should not be used as the sole means of detecting cervical cancer. Both false-positive and false-negative reports do occur. . Performed at: WB Performed By: #### 4 [id number] ####[facility] [address] [address]Dr. Eugenio Natarajan Performed by: Comment Normal [facility] Comment on above: Result Comment: Maci Solo Car Parker (ASCP) Performed at: WB Performed By: #### 4 [id number] ####[facility] [address] [address]Dr. Eugenio Natarajan Specimen adequacy: Comment Normal [facility] Comment on above: Result Comment: Sati sfactory for evaluation. No endocervical component is identified. Performed at: WB Performed By: #### 4 [id number] ####[facility] [address] [place], [place] [address]UaDr. Eugenio Natarajan VAGINITIS/VAGINOSIS DNA PROB Niranjan 11-27-2021 Afshan species Negative Normal Negative [facility] Comment on above: Performed By: #### V AGINT #### [facility] [address] [address] [address] Eugenio Natarajan Gardnerella vaginalis Negative Normal Negative [facility] Comment on above: Performed By: #### V AGINT #### [facility] [address] [address] [address] Eugenio Natarajan Trichomonas vaginalis Negative Normal Negative [facility] Comment on above: Performed By: #### V AGINT #### [facility] [address] [address] [address] Eugenio Natarajan COVID Quick Testingon 2021 Result Negative [facility] Other MG MAMM LT DIAG FUon 022 MG MAMM LT DIAG FU Patient: LANCE PINK Exam Date: 11/10/2021 : 1980 Gender:F Ordering : DR SARAH KEYS . Admission #: [id number] Family : Order #: [id number] CLICK HERE TO VIEW EXAM RADIOLOGY REPORT [...] Treatments None Family Cancers None LOCATION: [facility] BREAST COMPOSITION: Extremely dense, which [...] Islas M.D. on 11/10/2021 at 10:35 Normal [facility] US BREAST LEFT LIMITEDon US BREAST LEFT LIMITED Patient: LANCE PINK Exam Date: 11/10/2021 : 1980 Gender:F Ordering : DR SARAH KEYS . Admission #: [id number] Family : Order #: [id number] CLICK HERE TO VIEW EXAM RADIOLOGY REPORT [...] Treatments None Family Cancers None LOCATION: [facility] BREAST COMPOSITION: Extremely dense, which [...] Islas M.D. on 11/10/2021 at 10:35 Normal [facility] MG MAMM SCREEN 3D JASON CADon 10-26-2021 MG MAMM SCREEN 3D JASON CAD Patient: LANCE PINK Exam Date: 10/26/2021 : 1980 Gender:F Ordering : DR SARAH KEYS . Admission #: [id number] Family : Order #: [id number] CLICK HERE TO VIEW EXAM RADIOLOGY REPORT [...] Treatments None Family Cancers None LOCATION: [facility] BREAST COMPOSITION: Extremely dense, which [...] Islas M.D. on 10/26/2021 at 14:11 Normal [facility] CBC AUTO DIFFon 07-23-2021 BASO # 0.0 103/ul Normal 0.0-0.1 [facility] Comment on above: Performed By: #### C BC #### [facility] [address] [address] [address] Eugenio Natarajan Basophils/100 WBC (Bld) 0.4 % Normal 0.2-2.0 [facility] Comment on above: Performed By: #### C BC #### [facility] [address] [address] [address] Eugenio Natarajan EO # 0.1 103/ul Normal 0.0-0.7 [facility] Comment on above: Performed By: #### C BC #### [facility] [address] [place] [address] Dr. Eugenio Natarajan Eosinophils/100 WBC (Bld) 1.2 % Normal 0.9-7.0 [facility] Comment on above: Performed By: #### C BC #### [facility] [address] [place] [address] Dr. Eugenio Natarajan Erythrocyte distribution width (RBC) [Ratio] 11.8 % Normal 11.0-15.0 [facility] Comment on above: Performed By: #### C BC #### [facility] [address] [place] [address] Dr. Eugenio Natarajan Hematocrit (Bld) [Volume fraction] 39.2 % Normal 36.0-48.0 [facility] Comment on above: Performed By: #### C BC #### [facility] [address] [place] [address] Dr. Eugenio Natarajan Hemoglobin (Bld) [Mass/Vol] 12.8 g/dL Normal 12.0-16.0 [facility] Comment on above: Performed By: #### C BC #### [facility] [address] [place] [address] Dr. Eugenio Natarajan IG # 0.02 10e3/ul Normal 0.00-0.[address] [facility] Comment on above: Performed By: #### C BC #### [facility] [address] [place] [address] Dr. Eugenio Natarajan IG % 0.3 % Normal 0.0-0.[address] [facility] Comment on above: Performed By: #### C BC #### [facility] [address] [place] [address] Dr. Eugenio Natarajan LYMPH # 1.6 103/ul Normal 1.2-3.[address] [facility] Comment on above: Performed By: #### C BC #### [facility] [address] [place] [address] Dr. Eugenio Natarajan Lymphocytes/100 WBC (Bld) 22.3 % Normal 20.5-60.0 [facility] Comment on above: Performed By: #### C BC #### [facility] [address] [place] [address] Dr. Eugenio Natarajan MANUAL DIFF REQ NO Normal [facility] Comment on above: Performed By: #### C BC #### [facility] [address] [place] [address] Dr. Eugenio Natarajan MCH (RBC) [Entitic mass] 29.7 pg Normal 26.7-34.0 [facility] Comment on above: Performed By: #### C BC #### [facility] [address] [place] [address] Dr. Eugenio Natarajan MCHC (RBC) [Mass/Vol] 32.7 g/dL Normal 29.9-35.2 [facility] Comment on above: Performed By: #### C BC #### [facility] [address] [place] [address] Dr. Eugenio Natarajan MCV (RBC) [Entitic vol] 91.0 fL Normal 81.0-99.0 [facility] Comment on above: Performed By: #### C BC #### [facility] [address] [place] [address] Dr. Eugenio Natarajan MONO # 0.3 103/ul Normal 0.3-0.8 [facility] Comment on above: Performed By: #### C BC #### [facility] [address] [place] [address] Dr. Eugenio Natarajan Monocytes/100 WBC (Bld) 4.5 % Normal 1.7-12.0 [facility] Comment on above: Performed By: #### C BC #### [facility] [address] [place] [address] Dr. Eugenio Natarajan NEUT # 5.2 103/ul Normal 1.4-6.5 [facility] Comment on above: Performed By: #### C BC #### [facility] [address] [place] [address] Dr. Eugenio Natarajan Neutrophils/100 WBC (Bld) 71.3 % Normal 43.0-75.0 [facility] Comment on above: Performed By: #### C BC #### [facility] [address] [address] [address] Eugenio Natarajan Platelet mean volume (Bld) [Entitic vol] 8.6 fL Critically low 9.5-13.5 [facility] Comment on above: Performed By: #### C BC #### [facility] [address] [address] [address] Eugenio Natarajan PLT 320 103/ul Normal 150-[address] [facility] Comment on above: Performed By: #### C BC #### [facility] [address] [address] [address] Eugenio Natarajan RBC 4.31 106/ul Normal 4.20-5.40 [facility] Comment on above: Performed By: #### C BC #### [facility] [address] [address] [address] Eugenio Natarajan WBC 7.3 103/ul Normal 4.0-11.0 [facility] Comment on above: Performed By: #### C BC #### [facility] [address] [address] [address] Eugenio Natarajan ER URINE PROFILEon 2 Bilirubin Ql (U) Negative Normal NEGATIVE [facility] Comment on above: Performed By: #### E RUR ####[facility] [address] [place], [place] [address]DrGennaro Natarajan Clarity (U) CLEAR Normal CLEAR [facility] Comment on above: Performed By: #### E RUR ####[facility] [address] [address]DrGennaro Natarajan Color (U) LT. YELLOW Normal YELLOW [facility] Comment on above: Performed By: #### E RUR ####[facility] [address] [place], [place] [address]DrGennaro Natarajan ERUAHD A micrscopic examination will be performed if indicated. Normal [facility] Comment on above: Performed By: #### E RUR ####[facility] [address] [address]Dr. Eugenio Natarajan Glucose Ql (U) Negative Normal NEGATIVE [facility] Comment on above: Performed By: #### E RUR ####[facility] [address] [place], [place] [address]Dr. Eugenio Natarajan Hemoglobin Ql (U) Negative Normal NEGATIVE [facility] Comment on above: Performed By: #### E RUR ####[facility] [address] [place], [place] [address]Dr. uEgenio Natarajan Ketones Ql (U) 15 mg/dl Abnormal NEGATIVE [facility] Comment on above: Performed By: #### E RUR ####[facility] [address] [place], [place] [address]Dr. Eugenio Natarajan LEUKOCYTES Negative Normal NEGATIVE [facility] Comment on above: Performed By: #### E RUR ####[facility] [address] [place], [place] [address]Dr. Eugenio Natarajan Nitrite Ql (U) Negative Normal NEGATIVE [facility] Comment on above: Performed By: #### E RUR ####[facility] [address] [place], [place] [address]Dr. Erayanely Delgado pH (U) 6.0 [pH] Normal 5-9 [facility] Comment on above: Performed By: #### E RUR ####[facility] [address] [place], [place] [address]Dr. Eugenio Natarajan SPEC GRAVITY 1.010 Normal 1.005-<=1.025 [facility] Comment on above: Performed By: #### E RUR ####[facility] [address] [place], [place] [address]Dr. Eugenio Natarajan UA PROTEIN Negative Normal NEGATIVE/ TRACE [facility] Comment on above: Performed By: #### E RUR ####[facility] [address] [place], [place] [address]Dr. Eugenio Natarajan UR MICRO IND NOT INDICATED Normal [facility] Comment on above: Performed By: #### E RUR ####[facility] [address] [place], [place] [address]Dr. Eugenio Natarajan Urobilinogen Qn (U) 0.2 {Wilmar'U}/dL Normal 0.2 - 1.[address] [facility] Comment on above: Performed By: #### E RUR ####[facility] [address] [address]Dr. Eugenio Natarajan LIPASEon 07-23-2021 Lipase [Catalytic activity/Vol] 74.0 U/L Normal 73.0-393.[address] [facility] Comment on above: Performed By: #### C MP, LIPA #### [facility] [address] [address] [address] Eugenio Natarajan PROF 14(COMP METB)on 022 Albumin [Mass/Vol] 4.1 g/dL Normal 3.4-5.0 [facility] Comment on above: Performed By: #### C MP, LIPA #### [facility] [address] [address] [address] Eugenio Natarajan Albumin/Globulin [Mass ratio] 1.2 {ratio} Normal [facility] Comment on above: Performed By: #### C MP, LIPA #### [facility] [address] [address] [address] Eugenio Natarajan ALP [Catalytic activity/Vol] 50 U/L Normal 46-116 [facility] Comment on above: Performed By: #### C MP, LIPA #### [facility] [address] [address] [address] Eugenio Natarajan ALT [Catalytic activity/Vol] 15 U/L Normal 14-[address] [facility] Comment on above: Performed By: #### C MP, LIPA #### [facility] [address] [address] [address] Eugenio Natarajan Anion gap [Moles/Vol] 13.6 mmol/L Normal [facility] Comment on above: Performed By: #### C MP, LIPA #### [facility] [address] [place] [address] Dr. Eugenio Natarajan AST [Catalytic activity/Vol] 14 U/L Critically low 15-[address] [facility] Comment on above: Performed By: #### C MP, LIPA #### [facility] [address] [address] [address] Eugenio Natarajan Bilirubin [Mass/Vol] 1.3 mg/dL Critically high 0.2-1.0 [facility] Comment on above: Performed By: #### C MP, LIPA #### [facility] [address] [address] [address] Eugenio Natarajan Calcium [Mass/Vol] 8.3 mg/dL Critically low 8.5-10.[address] [facility] Comment on above: Performed By: #### C MP, LIPA #### [facility] [address] [address] [address] Eugenio Natarajan Chloride [Moles/Vol] 99 mmol/L Normal 98-107 [facility] Comment on above: Performed By: #### C MP, LIPA #### [facility] [address] [place] [address] Dr. Eugenio Natarajan CO2 [Moles/Vol] 28.0 mmol/L Normal 21.0-32.0 [facility] Comment on above: Performed By: #### C MP, LIPA #### [facility] [address] [place] [address] Dr. Eugenio Natarajan Creatinine [Mass/Vol] 0.61 mg/dL Normal 0.55-1.02 [facility] Comment on above: Performed By: #### C MP, LIPA #### [facility] [address] [place] [address] Dr. Eugenio Natarajan EGFR-AF VENEZUELAN >60 Normal >=60 [facility] Comment on above: Performed By: #### C MP, LIPA #### [facility] [address] [address] [address] Eugenio Natarajan EGFR-NON AF VENEZUELAN >60 Normal >=[address] [facility] Comment on above: Performed By: #### C MP, LIPA #### [facility] [address] [place] [address] Dr. Eugenio Natarajan Globulin (S) [Mass/Vol] 3.3 g/dL Normal [facility] Comment on above: Performed By: #### C MP, LIPA #### [facility] [address] [address] [address] Eugenio Natarajan Glucose [Mass/Vol] 82 mg/dL Normal 74-[address] [facility] Comment on above: Performed By: #### C MP, LIPA #### [facility] [address] [place] [address] Dr. Eugenio Nataraajn Potassium [Moles/Vol] 3.6 mmol/L Normal 3.5-5.1 [facility] Comment on above: Performed By: #### C MP, LIPA #### [facility] [address] [address] [address] Eugenio Natarajan Protein [Mass/Vol] 7.4 g/dL Normal 6.1-8.2 [facility] Comment on above: Performed By: #### C MP, LIPA #### [facility] [address] [place] [address] Dr. Eugenio Natarajan Sodium [Moles/Vol] 137 mmol/L Normal 136-[address] [facility] Comment on above: Performed By: #### C MP, LIPA #### [facility] [address] [address] [address] Eugenio Natarajan Urea nitrogen [Mass/Vol] 8.0 mg/dL Normal 7.0-18.0 [facility] Comment on above: Performed By: #### C MP, LIPA #### [facility] [address] [place] [address] Dr. Eugenio Natarajan Urea nitrogen/Creatini ne [Mass ratio] 13.1 mg/mg Normal [facility] Comment on above: Performed By: #### C MP, LIPA #### [facility] [address] [place] [address] Dr. Eugenio Natarajan US SINGLE QUAD RT [...] FITO ISLAS Date: 2021-07-23 15:01 Normal [facility] VAGINITIS/VAGINOSIS DNA PROB Niranjan 07-23-2021 Afshan species Negative Normal Negative [facility] Comment on above: Performed By: #### V AGINT #### [facility] [address] [place] [address] Dr. Eugenio Natarajan Gardnerella vaginalis Negative Normal Negative [facility] Comment on above: Performed By: #### V AGINT #### [facility] [address] [place] [address] Dr. Eugenio Natarajan Trichomonas vaginalis Negative Normal Negative [facility] Comment on above: Performed By: #### V AGINT #### [facility] [address] [place] [address] Dr. Eugenio Natarajan Coding Summary.on 04-08-2020 Coding Summary. CODING DATE: 04/08/2020 [facility] STATUS: Home (Routine DC) PAYOR: Medicaid EA [...] CphT Date Saved: 04/08/2020 07:50 pm Normal [facility] SARS-CoV-2, NAAon 04-04-2020 SARS CORONAVIRUS 2 RNA:PRTHR:PT:RESP IRATORY:ORD:PROBE .AMP.TAR Not Detected Not Detected [facility] Comment on above: Result Comment: This nucleic acid amplification test was developed and its performance characteristics determined by [employer]. Nucleic acid amplification tests include PCR and [...] detected) result in this assay. Performed at: [facility] [address] [facility] [place] [id number] MD Ross García Performed By: #### S ARS-CoV-2, BEN #### [facility] [address] [place] [address] Physician Orderon 04-01-2020 Physician Order [id number] .00CD:[id number] Normal [facility] Vital Signs Date Time Vital Sign Value Performing Clinician Facility 04-05-2023 10:30-0500 Body height 163.83 cm [facility] Other 04-05-2023 10:30-0500 Body mass index (BMI) [Ratio] 28.22 kg/m2 [facility] Other 04-05-2023 10:30-0500 Body temperature 97.3 [degF] Nolan Wanda Other [facility] Other 04-05-2023 10:30-0500 Body weight 75.75 kg Nolan Wanda Other [facility] Other 04-05-2023 10:30-0500 Diastolic blood pressure 78 mm[Hg] Nolan Wanda Other [facility] Other 04-05-2023 10:30-0500 Respiratory rate 20 /min Nolan Wanda Other [facility] Other 04-05-2023 10:30-0500 SaO2% (BldA) [Mass fraction] 98 % Nolan Wanda Other [facility] Other 04-05-2023 10:30-0500 Systolic blood pressure 130 mm[Hg] Nolan Wanda Other [facility] Other 03-14-2023 13:30-0500 Body height 163.83 cm Nolan Wanda Other [facility] Other 03-14-2023 13:30-0500 Body mass index (BMI) [Ratio] 27.54 kg/m2 Nolan Wanda Other [facility] Other 03-14-2023 13:30-0500 Body temperature 98.5 [degF] Nolan Wanda Other [facility] Other 03-14-2023 13:30-0500 Body weight 73.94 kg Nolan Wanda Other [facility] Other 03-14-2023 13:30-0500 Diastolic blood pressure 80 mm[Hg] Nolan Wanda Other [facility] Other 03-14-2023 13:30-0500 Respiratory rate 20 /min Nolan Wanda Other [facility] Other 03-14-2023 13:30-0500 SaO2% (BldA) [Mass fraction] 98 % Nolan Wanda Other [facility] Other 03-14-2023 13:30-0500 Systolic blood pressure 118 mm[Hg] Nolan Wanda Other [facility] Other 05-04-2022 11:15-0500 Body height 163.83 cm Nolan Wanda Other [facility] Other 05-04-2022 11:15-0500 Body mass index (BMI) [Ratio] 25.85 kg/m2 Nolan Wanda Other [facility] Other 05-04-2022 11:15-0500 Body temperature 97.3 [degF] Nolan Wanda Other [facility] Other 05-04-2022 11:15-0500 Body weight 69.4 kg Nolan Wanda Other [facility] Other 05-04-2022 11:15-0500 Diastolic blood pressure 62 mm[Hg] Nolan Wanda Other [facility] Other 05-04-2022 11:15-0500 Respiratory rate 20 /min Nolan Wanda Other [facility] Other 05-04-2022 11:15-0500 Systolic blood pressure 106 mm[Hg] Nolan Wanda Other [facility] Other 11-12-2021 16:45-0400 Body height 163.83 cm Nolan Wanda Other [facility] Other 11-12-2021 16:45-0400 Body mass index (BMI) [Ratio] 25.01 kg/m2 Nolan Wanda Other [facility] Other 11-12-2021 16:45-0400 Body temperature 98.3 [degF] Nolan Wanda Other [facility] Other 11-12-2021 16:45-0400 Body weight 67.13 kg Nolan Wanda Other [facility] Other 11-12-2021 16:45-0400 Diastolic blood pressure 68 mm[Hg] Nolan Wanda Other [facility] Other 11-12-2021 16:45-0400 Respiratory rate 20 /min Nolan Wanda Other [facility] Other 11-12-2021 16:45-0400 SaO2% (BldA) [Mass fraction] 98 % Nolan Wanda Other [facility] Other 11-12-2021 16:45-0400 Systolic blood pressure 110 mm[Hg] Nolan Wanda Other [facility] Other 07-24-2021 10:00-0400 Body height 163.83 cm Nolan Wanda Other [facility] Other 07-24-2021 10:00-0400 Body mass index (BMI) [Ratio] 25.68 kg/m2 Nolan Wanda Other [facility] Other 07-24-2021 10:00-0400 Body temperature 98.9 [degF] Nolan Wanda Other [facility] Other 07-24-2021 10:00-0400 Body weight 68.95 kg Nolan Wanda Other [facility] Other 07-24-2021 10:00-0400 Diastolic blood pressure 68 mm[Hg] Nolan Wanda Other [facility] Other 07-24-2021 10:00-0400 Respiratory rate 20 /min Nolan Wanda Other [facility] Other 07-24-2021 10:00-0400 SaO2% (BldA) [Mass fraction] 96 % Nolan Wanda Other [facility] Other 07-24-2021 10:00-0400 Systolic blood pressure 118 mm[Hg] Nolan Wanda Other [facility] Other 04-09-2021 17:45-0500 Body height 163.83 cm Nolan Wanda Other [facility] Other 04-09-2021 17:45-0500 Body mass index (BMI) [Ratio] 25.52 kg/m2 Nolan Wanda Other [facility] Other 04-09-2021 17:45-0500 Body temperature 98.4 [degF] Nolan Wanda Other [facility] Other 04-09-2021 17:45-0500 Body weight 68.49 kg Nolan Wanda Other [facility] Other 04-09-2021 17:45-0500 Diastolic blood pressure 60 mm[Hg] Nolan Wanda Other [facility] Other 04-09-2021 17:45-0500 Respiratory rate 20 /min Nolan Wanda Other [facility] Other 04-09-2021 17:45-0500 SaO2% (BldA) [Mass fraction] 98 % Nolan Wanda Other [facility] Other 04-09-2021 17:45-0500 Systolic blood pressure 98 mm[Hg] Nolan Wanda Other [facility] Other Encounters Encounter Date Encounter Type Care Provider Facility Start: 05-03-2023 Clinisync Result Encounter Georgina GEORGE Work Phone: [facility] External Department Unsolicited Start: 05-03-2023 Clinisync Result Encounter Georgina GEORGE Work Phone: [facility] External Department Unsolicited Start: 05-03-2023 End: 05-03-2023 ambulatory GEORGINA PORTILLO Not Available Start: 04-29-2023 Chart abstracting Georgina GEORGE Work Phone: [facility] Start: 04-18-2023 End: 04-18-2023 ambulatory Imad Asaad Other [facility] Other Start: 04-18-2023 Telephone encounter Imad Asaad [facility] [employer] Start: 04-12-2023 End: 04-12-2023 ambulatory Nolan Wanda Other [facility] Other Start: 04-12-2023 Telephone encounter Nolan Wanda [facility] Start: 04-07-2023 End: 04-07-2023 ambulatory Nolan Wanda Other [facility] Other Start: 04-07-2023 Telephone encounter Nolan Wanda [facility] Start: 04-06-2023 End: 04-06-2023 ambulatory Nolan Wanda Other [facility] Other Start: 04-06-2023 Telephone encounter Nolan Wanda [facility] Start: 04-05-2023 End: 04-05-2023 ambulatory Nolan Wanda Other [facility] Other Start: 04-05-2023 Office outpatient vi sit 25 minutes Nolan Wanda [facility] Start: 04-05-2023 Telephone encounter Nolan Wanda [facility] Start: 03-14-2023 End: 03-14-2023 ambulatory Nolan Wanda Other [facility] Other Start: 03-14-2023 Office outpatient vi sit 15 minutes Nolan Wanda [facility] Start: 03-14-2023 Telephone encounter Nolan Wanda [facility] Start: 02-14-2023 End: 02-14-2023 ambulatory Nolan Wanda Other [facility] Other Start: 02-14-2023 Telephone encounter Nolan Wanda [facility] Start: 07-28-2022 End: 07-28-2022 ambulatory Nolan Wanda Other [facility] Other Start: 07-28-2022 Telephone encounter Nolan Wanda [facility] Start: 07-08-2022 End: 07-08-2022 ambulatory Nolan Wanda Other [facility] Other Start: 07-08-2022 Telephone encounter Nolan Wanda [facility] Start: 06-11-2022 End: 06-11-2022 ambulatory Fito Islas Facility:[facility] Start: 05-10-2022 End: 05-10-2022 ambulatory Nolan Wanda Other [facility] Other Start: 05-10-2022 Telephone encounter Nolan Wanda [facility] Start: 05-04-2022 End: 05-04-2022 ambulatory Nolan Wanda Other [facility] Other Start: 05-04-2022 Office outpatient vi sit 15 minutes Nolan Wanda [facility] Start: 03-17-2022 End: 03-17-2022 ambulatory Nolan Wanda Other [facility] Other Start: 03-17-2022 Telephone encounter Nolan Wanda [facility] Start: 02-08-2022 End: 02-08-2022 ambulatory Nolan Wanda Other [facility] Other Start: 02-08-2022 Telephone encounter Nolan Wanda [facility] Start: 01-04-2022 End: 01-04-2022 ambulatory Nolan Wanda Other [facility] Other Start: 01-04-2022 Telephone encounter Nolan Wanda [facility] Start: 11-24-2021 End: 11-24-[address] NOLAN MUÑOZ Facility:[facility] Start: 11-12-2021 End: 11-12-2021 ambulatory Nolan Wanda Other [facility] Other Start: 11-12-2021 Office outpatient vi sit 15 minutes Nolan Wanda [facility] Start: 11-10-2021 End: 11-11-[address] NOLAN MUÑOZ Facility:[facility] Start: 10-26-2021 End: 10-27-[address] NOLAN Lewis WANDA Facility:[facility] Start: 10-19-2021 End: 10-19-2021 ambulatory Nolan Wanda Other [facility] Other Start: 10-19-2021 Telephone encounter Nolan Wanda [facility] Start: 08-13-2021 End: 08-13-2021 ambulatory Nolan Wanda Other [facility] Other Start: 08-13-2021 Telephone encounter Nolan Wanda [facility] Start: 08-10-2021 End: 08-10-2021 ambulatory Nolan Wanda Other [facility] Other Start: 08-10-2021 Telephone encounter Nolan Wanda [facility] Start: 07-24-2021 End: 07-24-2021 ambulatory Nolan Wanda Other [facility] Other Start: 07-24-2021 Office outpatient vi sit 15 minutes Nolan Wanda [facility] Start: 07-23-2021 End: 07-23-[address] NOLAN MUÑOZ Facility:[facility]1 Start: 07-21-2021 End: 07-21-[address] SARAH KEYS . Facility:[facility] Start: 05-06-2021 End: 05-06-2021 ambulatory Nolan Wanda Other [facility] Other Start: 05-06-2021 Telephone encounter Nolan Wanda [facility] Start: 04-17-2021 End: 04-17-2021 ambulatory Nolan Wanda Other [facility] Other Start: 04-17-2021 Telephone encounter Nolan Wanda [facility] Start: 04-14-2021 End: 04-14-2021 ambulatory Nolan Wanda Other [facility] Other Start: 04-14-2021 Telephone encounter Nolan Wanda [facility] Start: 04-09-2021 End: 04-09-2021 ambulatory Nolan Wanda Other [facility] Other Start: 04-09-2021 Office outpatient vi sit 15 minutes Nolan Wanda [facility] Procedures Date Procedure Procedure Detail Performing Clinician Start: 05-03-2023 IGP,APTIMA HPV,AGE GDLN Georgina GEORGE Work Phone: Plan of Treatment Date Care Activity Detail Author Start: 05-08-2024 End: 05-08-2024 Patient encounter procedure 05/08/2024 11:00 AM EST Office Visit [facility] [address] [facility] [place] [id number] Georgina Portillo PA [address] [place] [address] [facility] Start: 05-03-2023 End: 05-03-2023 Patient encounter procedure 05/03/2023 11:00 AM EST Office Visit [facility] [address] [facility] [place] [id number] Georgina Portillo PA [address] [place], [place] [id number] Well woman exam with routine gynecological exam [facility] Comment on above: Well woman exam with routine gynecological exam Immunizations Immunization Date Immunization Notes Care Provider Fa cility NEGATED: Highlighted row has not occurred!10-15-2019 influenza, injectable, quadrivalent, contains preservative Patient Objection Nolan Wanda Other [facility] Other NEGATED: Highlighted row has not occurred!02-28-2018 influenza, injectable, quadrivalent, contains preservative Patient Objection Nolan Wanda Other [facility] Other NEGATED: Highlighted row has not occurred!01-12-2018 influenza, injectable, quadrivalent, contains preservative Patient Objection Nolan Wanda Other [facility] Other NEGATED: Highlighted row has not occurred!07-05-2017 influenza, injectable, quadrivalent, contains preservative Patient Objection Nolan Wanda Other [facility] Other NEGATED: Highlighted row has not occurred!03-31-2017 influenza, injectable, quadrivalent, contains preservative Patient Objection Nolan Wanda Other [facility] Other NEGATED: Highlighted row has not occurred!06-01-2016 influenza, injectable, quadrivalent, contains preservative Patient Objection Nolan Wanda Other [facility] Other Payers Date Payer Category Payer Private Health Insurance [id number] 2023 Private Health Insurance MENDOZA Aguilar [facility] [id number] 2023-Present [address] [place] [phone] [id number] 1980 Unknown [id number] 93 1980 Unknown [id number] 93 1980 Unknown [id number] 93 1980 Unknown [id number] 93 1980 Unknown [id number] 93 1980 Unknown [id number] 93 1980 Unknown [id number] 259 1959 Unknown [id number] 1959 Unknown [id number] Unknown [id number] Social History Date Type Detail Facility Unknown if ever smoked [facility] Other Start: 04-29-2023 Sex Assigned At N [facility] Other Start: 04-29-2023 Tobacco smoking status ARIS Never smoked tobacco [facility] Start: 04-29-2023 End: 05-03-2023 Alcohol intake Lifetime non-drinker (finding) [facility] Start: 04-29-2023 Alcohol Comment Caffeine intake: non e [facility] Start: 1980 Sex Assigned At Not on file N [facility] Start: 04-29-2023 History of Social function [facility] Clinical Notes 04-28-2019 to 04-12-2023 Note Date & Type Note Facility 04-12-2023 Evaluation note Encounter Date Diagnosis Assessment Notes Mar, Abdominal bloating (ICD-10 - R14.0) [facility] Other 01-11-2024 Evaluation note* Encounter Date Diagnosis Assessment Notes Treatment Notes Treatment Clinical Notes Mar, Abdominal bloating (ICD-10 - R14.0) [facility] Other 01-09-2024 Evaluation note* Encounter Date Diagnosis [...] E Rx sent. No other change today. [facility] Other 01-09-2024 Evaluation note* Encounter Date Diagnosis Assessment Notes Treatment Notes Treatment Clinical Notes Mar, RUQ abdominal pain (ICD-10 - R10.11) [facility] Other 12-18-2023 Evaluation note* Encounter Date Diagnosis Assessment Notes Treatment Notes Treatment Clinical Notes Feb, Red eyes (ICD-10 - H57.89) [facility] Other 12-18-2023 Evaluation note* Encounter Date Diagnosis Assessment Notes Treatment Notes Treatment Clinical Notes Feb, Red eyes (ICD-10 - H57.89) Feb, Acute pharyngitis, unspecified (ICD-10 - J02.9) With all of this testing being negative, this most likely represents a viral infection. Patient to call if symptoms persist. She voices agreement and understanding. Work note given. [facility] Other 11-20-2023 Evaluation note* Encounter Date Diagnosis Assessment Notes Treatment Notes Treatment Clinical Notes Jan, Left foot pain (ICD-10 - M79.672) Jan, Seasonal allergies (ICD-10 - J30.2) Jan, Anxiety (ICD-10 - F41.9) [facility] Other 05-03-2023 Evaluation note* Encounter Date Diagnosis Assessment Notes Treatment Notes Treatment Clinical Notes July, Anxiety (ICD-10 - F41.9) [facility] Other 04-13-2023 Evaluation note* Encounter Date Diagnosis Assessment Notes Treatment Notes Treatment Clinical Notes Jun, Seasonal allergies (ICD-10 - J30.2) [facility] Other 02-13-2023 Evaluation note* Encounter Date Diagnosis Assessment Notes Treatment Notes Treatment Clinical Notes Apr, Anxiety (ICD-10 - F41.9) [facility] Other 02-07-2023 Evaluation note* Encounter Date Diagnosis Assessment Notes Treatment Notes Treatment Clinical Notes Apr, Abdominal bloating (ICD-10 - R14.0) eRX sent. SIBO? IBS? Pt would really need GI review to make formal diag...Call is she wants to proceed. Call with results of the meds.... Apr, Left foot pain (ICD-10 - M79.672) [facility] Other 12-21-2022 Evaluation note* Encounter Date Diagnosis Assessment Notes Treatment Notes Treatment Clinical Notes Feb, Anxiety (ICD-10 - F41.9) [facility] Other 11-14-2022 Evaluation note* Encounter Date Diagnosis Assessment Notes Treatment Notes Treatment Clinical Notes Jan, Left foot pain (ICD-10 - M79.672) [facility] Other 10-10-2022 Evaluation note* Encounter Date Diagnosis Assessment Notes Treatment Notes Treatment Clinical Notes Dec, Anxiety (ICD-10 - F41.9) [facility] Other 08-18-2022 Evaluation note* Encounter Date Diagnosis Assessment Notes Treatment Notes Treatment Clinical Notes Oct, Acute pharyngitis, unspecified (ICD-10 - J02.9) Oct, Left foot pain (ICD-10 - M79.672) [facility] Other 07-25-2022 Evaluation note* Encounter Date Diagnosis Assessment Notes Treatment Notes Treatment Clinical Notes Sep, Anxiety (ICD-10 - F41.9) Sep, Seasonal allergies (ICD-10 - J30.2) [facility] Other 05-19-2022 Evaluation note* Encounter Date Diagnosis Assessment Notes Treatment Notes Treatment Clinical Notes July, Seasonal allergies (ICD-10 - J30.2) [facility] Other 05-16-2022 Evaluation note* Encounter Date Diagnosis Assessment Notes Treatment Notes Treatment Clinical Notes July, Anxiety (ICD-10 - F41.9) [facility] Other 04-29-2022 Evaluation note* Encounter Date Diagnosis [...] Jun, Generalized abdominal pain (ICD-10 - R10.84) [facility] Other 02-09-2022 Evaluation note* Encounter Date Diagnosis Assessment Notes Treatment Notes Treatment Clinical Notes Apr, Anxiety (ICD-10 - F41.9) [facility] Other 01-18-2022 Evaluation note* Encounter Date Diagnosis Assessment Notes Treatment Notes Treatment Clinical Notes Mar, Cough (ICD-10 - R05.9) [facility] Other 01-13-2022 Evaluation note* Encounter Date Diagnosis Assessment Notes Treatment Notes Treatment Clinical Notes Mar, Acute upper respiratory infection (ICD-10 - J06.9) E Rx sent. OARRs completed. Certainly patient to call if no improvement seen. [facility] Other 02-01-2020 History general Narrative - Reported* Type Description Date Medical History anxiety Medical History 04/2019 COVID Surgical History Appy age 14 Surgical History left foot surgery 08/2017 Surgical History VANNA - right ovary remains 04/16 19 Hospitalization History childbirth x 2 Hospitalization History appendacitis as a child Hospitalization History VANNA 03/2019 [facility] Other Evaluation noteNo InformationNortKeecker Other History general Narrative - ReportedNoKeecker Other Summary Purpose Family History No Family History Records FoundNo Family History Records FoundNo Family History Records Found Advance Directives No Advanced Directives Records FoundNo Advanced Directives Records FoundNo Advanced Directives Records Found Additional Source Comments INFORMATION SOURCE (unrecogn ized section and content) DATE CREATED AUTHOR 04/09/2020 [employer] [facility] DATE CREATED AUTHOR AUTHOR'S ORGANIZ ATION [facility] DATE CREATED AUTHOR AUTHOR'S ORGANIZ ATION 05/04/2023 [facility] EPIC REASON FOR VISIT (unrecogniz ed section and content) coughing up green, bloody no se, neg home covid test. LAB , patient has been sick for almost 2 weeks, 2 negative home tests.. she tested last and this past tuesday..Clinical Acute Illnessrefill Xanaxstomach discomfort again, patient went to [place] [facility] last night, for vomiting, nausea, lightheadedness [...] w/ chills and headachelab results inquiryfill flagylfollow upGI referralHIDA [facility] IllnessMAIL PPW Care Teams (unrecognized sec tion and content) [employer] Washer Operator Relationship Specialty Start Date End Date Nolan Muñoz MD [address] [place] [phone] PCP - General Family Medicine 05/03/23 FOR RECORDS PERTAINING TO PATIENTS WHO ARE [...] BE BASED ON THE PRIMARY CLINICAL RECORDS. [email or web address] provides no warranty or guarantee of the accuracy or completeness of information in this document.
== END 2023-05-17 09:50 | disposition home or self-care (01) ==
LOC: MAMMO 09:49
PROVIDERS: PCP Family Medicine; Visit Provider Obstetrics & Gynecology
DX: Z12.31 Encounter for screening mammogram for malignant neoplasm of breast (principal); N63.22 Unspecified lump in the left breast, upper inner quadrant
CPT/HCPCS: 77063; 77067

== ENCOUNTER 2023-06-14 09:20 | Outpatient (OUT) | payer OTHER, SELFPAY ==
--- NOTE | 2023-06-14 09:24 | US_ITS ---
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 RADIOLOGY REPORT PROCEDURE: MM DIAGNOSTIC MAMMO UNILAT LT, 06/14/2023, 08:28 US BREAST LT LIMITED, 06/14/2023, 09:34 COMPARISON: MM TOMOSYNTHESIS SCREENING BI, 05/17/2023. INDICATIONS: mammogram abnormal R92.8 Calculator Name NCI Breast Cancer Risk Assessment Tool 5 Year Breast Cancer Risk 0.50% Lifetime Breast Cancer Risk 8.10% Personal Breast Cancer No Personal Ovarian Cancer No Treatments None Family Cancers None LOCATION: [facility] BREAST COMPOSITION: Extremely dense, which lowers the sensitivity of mammography. FINDINGS: DIAGNOSTIC CATEGORY 2--BENIGN FINDING: Spot compression demonstrates a persistent 8.7 x 7.6 x 1.1 cm circumscribed mildly lobular nodule with several adjacent calcifications. Ultrasound demonstrates a bilobed or septated cystic lesion measuring 8.7 x 9.3 x 9.9 mm. No definite color flow or peripheral wall thickening period I favor a septated cyst. No follow-up is required RECOMMENDATIONS: ROUTINE MAMMOGRAM AND CLINICAL EVALUATION IN 12 MONTHS. PLEASE NOTE: A NORMAL MAMMOGRAM DOES NOT EXCLUDE THE POSSIBILITY OF BREAST CANCER. A CLINICALLY SUSPICIOUS PALPABLE LUMP SHOULD BE BIOPSIED. Dictated by: Rod Martin MD on 06/14/2023 at 09:53 Approved by: Rod Martin MD on 06/14/2023 at 09:56
--- OUTSIDE RECORDS SUMMARY | 2023-06-14 09:43 | XMS_ITS | CCD ---
Author Organization [facility] Care Team Providers Care Branch Services Manager Name Role Phone Nolan Muñoz Unavailable WANDA, [...] Attending Unavailable JHONNY ., DENA Consulting Unavailable iFto Islas Consulting Unavailable PAY ., DR HE Admitting Unavailable PAY ., DR HE Attending Unavailable WANDA, DR NOLAN Lewis [facility] Unavailable GRECHNY .DORIS Consulting Unavailabl e WANDA, DR NOLAN Lewis [facility] Unavailable KARASIK ., DR SMITH Attending Unavailabl e KARASIK ., DR SMITH Consulting Unavailabl e KARASIK ., DR SMITH Admitting Unavailabl e ZieberFito Consulting Unavailable Asaad, Imad Unavailable Unavailable Primary Care Provider GEORGINA Leary Attending Unavailable Nolan Muñoz MD Primary Care Provider [phone] Allergies Allergy Classification Reported Allergen(s) Allergy Type Date of Onset Reaction(s) Facility (20 sources) Amoxicillin Drug Allergy Unknown [facility] Other (20 sources) Clindamycin Drug Allergy 4 hives [facility] Healthcare Work Phone: (20 sources) fluticasone Drug Allergy Thrush [facility] Other (20 sources) Penicillin Drug Allergy [facility] Other (20 sources) Sulfamethoxazole / Trimethoprim Drug Allergy [facility] Other (1 source) Amoxicillin Drug Allergy [facility] Repository (1 source) Clindamycin Drug Allergy [facility] Repository (1 source) fluticasone Drug Allergy 0 [facility] Repository (1 source) Penicillins Drug allergy (disorder) 3 [facility] Repository (1 source) Sulfamethoxazole / Trimethoprim Drug Allergy [facility] Repository (2 sources) Penicillin G Drug Allergy 4 [facility] Healthcare Medications Current Medications Medication Drug [...] for 3 days Active polyethylene glycol 3350 817226 mg / potassium chloride 2970 mg / sodium bicarbonate 6740 mg / sodium chloride 5860 mg / sodium sulfate 42441 mg powder for oral solution (1 source) [...] Zinc (17 sources) take 1 tablet by nakita th once daily Zinc 30 MG 1 tablet [...] 07-24-2021 Episodic Other aftercare (1 source) Other emt intermediate (current) drug therapy; Translations: [OTH FOOD HANDLER CURRENT DRUG THERAPY] Onset: 06-15-2022 Episodic Other [...] Source.............Vagina No. of containers..01 ThinPrep Vial Age Algo ACOG Rosalie... 30- FLAG LEGEND: L-Low Normal,H-High Normal,LL-Alert Low,HH-Alert High <-Panic Low,>-Panic High,A-Abnormal,AA-Critical Abnormal Performed at: 01 = [facility] [address] Selin Dixon MD, HPV APTIMA Negative Negative [facility] Comment on above: This nucleic acid am plification test detects fourteen high- risk HPV types (16,18,31,33,35,39,45,51,52,56,58,59,66,68) without differentiation. Performed at: =G - [facility] [id number] [facility] Contact Representative: Selin Dixon MD, Phone: [phone] Performed at: [facility] [id number] [place] [id number] Veterans Contact Representative: Jeremías Miles MD, Phone: [phone] IGP, APTIMA HPV, RFX 16/18,[address] [facility] Comment on above: TESTS RESULT FLAG UN ITS REF RANGE LAB DIAGNOSIS: 02 NEGATIVE FOR INTRAEPITHELIAL LESION OR MALIGNANCY. Specimen adequacy: 02 Satisfactory for evaluation. Performed by: Shanice Allen Real Estate Acquisition Analyst (ASC) . Note: Note 03 The Pap smear is [...] High,A-Abnormal,AA-Critical Abnormal Performed at: 02 [facility] [address] [place] [address] Jeremías Miles MD, 03 WB [facility] [address] [address] Selin Dixon MD, SPATULA-ALONE VAGINA [facility] COVID + FLU Quick Testingon 03-14-2023 SARS-CoV-2 (COVID-19) RNA BEN+probe Ql (Unsp spec) Negative [facility] [employer] Other COVID + FLU Quick Testing Negative [facility] Other Quick Strepon 03-14-2023 S. pyogenes Org specific cx Ql (Throat) Negative [facility] [employer] Other Quick Strep [facility] [employer] Other CBC AUTO DIFFon 06-11-2022 BASO # 0.1 103/ul Normal 0.0-0.1 [facility] Comment on above: Performed By: #### C BC #### [facility] Laboratory [address] [address] [address] Eugenio Natarajan Basophils/100 WBC (Bld) 0.5 % Normal 0.2-2.0 [facility] Comment on above: Performed By: #### C BC #### [facility] Laboratory [address] [place] [address] Dr. Eugenio Natarajan EO # 0.2 103/ul Normal 0.0-0.7 [facility] Comment on above: Performed By: #### C BC #### [facility] [address] [place] [address] Dr. Eugenio Natarajan Eosinophils/100 WBC (Bld) 2.6 % Normal 0.9-7.0 [facility] Comment on above: Performed By: #### C BC #### [facility] [address] [place] [address] Dr. Eugenio Natarajan Erythrocyte distribution width (RBC) [Ratio] 12.3 % Normal 11.0-15.0 [facility] Comment on above: Performed By: #### C BC #### [facility] [address] [place] [address] Dr. Eugenio Natarajan Hematocrit (Bld) [Volume fraction] 39.6 % Normal 36.0-48.0 [facility] Comment on above: Performed By: #### C BC #### [facility] [address] [place] [address] Dr. Eugenio Natarajan Hemoglobin (Bld) [Mass/Vol] 13.3 g/dL Normal 12.0-16.0 [facility] Comment on above: Performed By: #### C BC #### [facility] [address] [place] [address] Dr. Eugenio Natarajan IG # 0.03 10e3/ul Normal 0.00-0.03 [facility] Comment on above: Performed By: #### C BC #### [facility] [address] [place] [address] Dr. Eugenio Natarajan IG % 0.3 % Normal 0.0-0.5 [facility] Comment on above: Performed By: #### C BC #### [facility] [address] [place] [address] Dr. Eugenio Natarajan LYMPH # 1.8 103/ul Normal 1.2-3.8 [facility] Comment on above: Performed By: #### C BC #### [facility] [address] [place] [address] Dr. Eugenio Natarajan Lymphocytes/100 WBC (Bld) 19.1 % Critically low 20.5-60.0 [facility] Comment on above: Performed By: #### C BC #### [facility] [address] [place] [address] Dr. Eugenio Natarajan MANUAL DIFF REQ NO Normal [facility] Comment on above: Performed By: #### C BC #### [facility] [address] [place] [address] Dr. Eugenio Natarajan MCH (RBC) [Entitic mass] 29.6 pg Normal 26.7-34.0 [facility] Comment on above: Performed By: #### C BC #### [facility] [address] [place] [address] Dr. Eugenio Natarajan MCHC (RBC) [Mass/Vol] 33.6 g/dL Normal 29.9-35.2 [facility] Comment on above: Performed By: #### C BC #### [facility] [address] [place] [address] Dr. Eugenio Natarajan MCV (RBC) [Entitic vol] 88.0 fL Normal 81.0-99.0 [facility] Comment on above: Performed By: #### C BC #### [facility] [address] [place] [address] Dr. Eugenio Natarajan MONO # 0.4 103/ul Normal 0.3-0.8 [facility] Comment on above: Performed By: #### C BC #### [facility] [address] [place] [address] Dr. Eugenio Natarajan Monocytes/100 WBC (Bld) 3.8 % Normal 1.7-12.0 [facility] Comment on above: Performed By: #### C BC #### [facility] [address] [place] [address] Dr. Eugenio Natarajan NEUT # 6.9 103/ul Critically high 1.4-6.5 [facility] Comment on above: Performed By: #### C BC #### [facility] [address] [address] [address] Eugenio Natarajan Neutrophils/100 WBC (Bld) 73.7 % Normal 43.0-75.0 [facility] Comment on above: Performed By: #### C BC #### [facility] [address] [address] [address] Eugenio Natarajan Platelet mean volume (Bld) [Entitic vol] 8.7 fL Critically low 9.5-13.5 [facility] Comment on above: Performed By: #### C BC #### [facility] [address] [place] [address] Dr. Eugenio Natarajan PLT 343 103/ul Normal 150-450 [facility] Comment on above: Performed By: #### C BC #### [facility] [address] [place] [address] Dr. Eugenio Natarajan RBC 4.50 106/ul Normal 4.20-5.40 [facility] Comment on above: Performed By: #### C BC #### [facility] [address] [place] [address] Dr. Eugenio Natarajan WBC 9.3 103/ul Normal 4.0-11.0 [facility] Comment on above: Performed By: #### C BC #### [facility] [address] [place] [address] Dr. Eugenio Natarajan ER URINE PROFILEon 3 Bilirubin Ql (U) Negative Normal NEGATIVE [facility] Comment on above: Performed By: #### E RUR ####[facility] [address] [address]Dr. Eugenio Natarajan Clarity (U) CLEAR Normal CLEAR [facility] Comment on above: Performed By: #### E RUR ####[facility] [address] [address]Dr. Eugenio Natarajan Color (U) LT. YELLOW Normal YELLOW [facility] Comment on above: Performed By: #### E RUR ####[facility] [address] [address]Dr. Erayanely HALEY A micrscopic examination will be performed if indicated. Normal [facility] Comment on above: Performed By: #### E RUR ####[facility] [address] [address]Dr. Eugenio Natarajan Glucose Ql (U) Negative Normal NEGATIVE [facility] Comment on above: Performed By: #### E RUR ####[facility] [address] [place], [place] [address]Dr. Eugenio Delgado Hemoglobin Ql (U) Negative Normal NEGATIVE [facility] Comment on above: Performed By: #### E RUR ####[facility] [address] [place], [place] [address]Dr. Eugenio Delgado Ketones Ql (U) Negative Normal NEGATIVE [facility] Comment on above: Performed By: #### E RUR ####[facility] [address] [place], [place] [address]Dr. Eugenio Delgado LEUKOCYTES Negative Normal NEGATIVE [facility] Comment on above: Performed By: #### E RUR ####[facility] [address] [place], [place] [address]Dr. Eugenio Delgado Nitrite Ql (U) Negative Normal NEGATIVE [facility] Comment on above: Performed By: #### E RUR ####[facility] [address] [place], [place] [address]Dr. Erayanely Delgado pH (U) 6.0 [pH] Normal 5-9 [facility] Comment on above: Performed By: #### E RUR ####[facility] [address] [place], [place] [address]Dr. Eugenio Natarajan SPEC GRAVITY 1.010 Normal 1.005-<=1.025 [facility] Comment on above: Performed By: #### E RUR ####[facility] [address] [place], [place] [address]Dr. Eugenio Natarajan UA PROTEIN Negative Normal NEGATIVE/ TRACE [facility] Comment on above: Performed By: #### E RUR ####[facility] [address] [address]Dr. Eugenio Natarajan UR MICRO IND NOT INDICATED Normal [facility] Comment on above: Performed By: #### E RUR ####[facility] [address] [address]Dr. Eugenio Natarajan Urobilinogen Qn (U) 0.2 {Wilmar'U}/dL Normal 0.2 - 1.0 [facility] Comment on above: Performed By: #### E RUR ####[facility] [address] [address]Dr. Eugenio Natarajan LIPASEon 06-11-2022 Lipase [Catalytic activity/Vol] 116.0 U/L Normal 73.0-393.0 [facility] Comment on above: Performed By: #### C JANNIE, LIPA ####[facility] [address] [place], [place] [address]Dr. Eugenio Natarajan PROF 14(COMP METB)on 023 Albumin [Mass/Vol] 4.4 g/dL Normal 3.4-5.0 [facility] Comment on above: Performed By: #### C JANNIE, LIPA ####[facility] [address] [place], [place] [address]Dr. Eugenio Natarajan Albumin/Globulin [Mass ratio] 1.2 {ratio} Normal [facility] Comment on above: Performed By: #### C MP, LIPA ####[facility] [address] [place], [place] [address]Dr. Eugenio Natarajan ALP [Catalytic activity/Vol] 57 U/L Normal 46-116 [facility] Comment on above: Performed By: #### C MP, LIPA ####[facility] [address] [place], [place] [address]Dr. Eugenio Natarajan ALT [Catalytic activity/Vol] 25 U/L Normal 14-59 [facility] Comment on above: Performed By: #### C MP, LIPA ####[facility] [address] [place], [place] [address]Dr. Eugenio Natarajan Anion gap [Moles/Vol] 13.4 mmol/L Normal [facility] Comment on above: Performed By: #### C JANNIE LIPA ####[facility] [address] [place], [place] [address]Dr. Eugenio Natarajan AST [Catalytic activity/Vol] 20 U/L Normal 15-37 [facility] Comment on above: Performed By: #### C MP, LIPA ####[facility] [address] [place], [place] [address]Dr. Eugenio Natarajan Bilirubin [Mass/Vol] 0.8 mg/dL Normal 0.2-1.0 [facility] Comment on above: Performed By: #### C JANNIE LIPA ####[facility] [address] [place], [place] [address]Dr. Eugenio Natarajan Calcium [Mass/Vol] 9.2 mg/dL Normal 8.5-10.1 [facility] Comment on above: Performed By: #### C JANNIE LIPA ####[facility] [address] [place], [place] [address]Dr. Eugenio Natarajan Chloride [Moles/Vol] 101 mmol/L Normal 98-107 [facility] Comment on above: Performed By: #### C JANNIE LIPA ####[facility] [address] [place], [place] [address]Dr. Eugenio Natarajan CO2 [Moles/Vol] 28.1 mmol/L Normal 21.0-32.0 [facility] Comment on above: Performed By: #### C JANNIE, LIPA ####[facility] [address] [place], [place] [address]Dr. Eugenio Natarajan Creatinine [Mass/Vol] 0.67 mg/dL Normal 0.55-1.02 [facility] Comment on above: Performed By: #### C JANNIE, LIPA ####[facility] [address] [place], [place] [address]Dr. Eugenio Natarajan EGFR-AF BOLIVIAN >60 Normal >=60 [facility] Comment on above: Performed By: #### C MP, LIPA ####[facility] [address] [address]Dr. Eugenio Natarajan EGFR-NON AF BOLIVIAN >60 Normal >=60 [facility] Comment on above: Performed By: #### C JANNIE, LIPA ####[facility] [address] [address]Dr. Eugenio Natarajan Globulin (S) [Mass/Vol] 3.8 g/dL Normal [facility] Comment on above: Performed By: #### C JANNIE, LIPA ####[facility] [address] [place], [place] [address]Dr. Eugenio Natarajan Glucose [Mass/Vol] 87 mg/dL Normal 74-106 [facility] Comment on above: Performed By: #### C JANNIE, LIPA ####[facility] [address] [place], [place] [address]Dr. Eugenio Natarajan Potassium [Moles/Vol] 3.5 mmol/L Normal 3.5-5.1 [facility] Comment on above: Performed By: #### C JANNIE, LIPA ####[facility] [address] [place], [place] [address]Dr. Eugenio Natarajan Protein [Mass/Vol] 8.2 g/dL Normal 6.4-8.2 [facility] Comment on above: Performed By: #### C JANNIE, LIPA ####[facility] [address] [place], [place] [address]Dr. Eugenio Natarajan Sodium [Moles/Vol] 139 mmol/L Normal 136-145 [facility] Comment on above: Performed By: #### C JANNIE, LIPA ####[facility] [address] [place], [place] [address]Dr. Eralan Natarajan Urea nitrogen [Mass/Vol] 13.0 mg/dL Normal 7.0-18.0 [facility] Comment on above: Performed By: #### C JANNIE, LIPA ####[facility] [address] [place], [place] [address]Dr. Eugenio Natarajan Urea nitrogen/Creatini ne [Mass ratio] 19.4 mg/mg Normal [facility] Comment on above: Performed By: #### C JANNIE, LIPA ####[facility] [address] [place], [place] [address]Yc. Eugenio Natarajan US SINGLE QUAD RT UPPERon [...] by: FITO ISLAS Date: 2022-06-11 15:06 Normal [facility] XR ABD FLAT_UPon 06-11-2022 XR ABD [...] by: FITO ISLAS Date: 2022-06-11 15:29 Normal [facility] PAP ACOG PANEL 2: 30 to 65on 12-02-2021 . . Normal [facility] Comment on above: Result Comment: Perf ormed at: WB Performed By: #### [id number] ####[facility] [address] [id number] Eugenio Natarajan Age Gdln ACOG Testing 30-65 Normal [facility] Comment on above: Performed By: #### 4 [id number] ####[facility] [address] [place], [place] [address]Jn. Eugenio Natarajan DIAGNOSIS: Comment Normal [facility] Comment on above: Result Comment: NEGA TIVE FOR INTRAEPITHELIAL LESION OR MALIGNANCY. Performed at: WB Performed By: #### 4 [id number] ####[facility] [address] [address]Dr. Eugenio Natarajan HPV Aptima Negative Normal Negative [facility] Comment on above: Result Comment: This nucleic acid amplification test detects fourteen high-risk HPV types (16,18,31,33,35,39,45,51,52,56,58,59,66,68) without differentiation. Performed at: =G Performed By: #### 4 [id number] ####[facility] [address] [address]Dr. Eugenio Natarajan Methodology: Comment Normal [facility] Comment on above: Result Comment: This liquid based ThinPrep(R) pap test was screened with the use of an image guided system. Performed at: WB Performed By: #### 4 [id number] ####[facility] [address] [address]Dr. Eugenio Natarajan Note: Comment Normal [facility] Comment on above: Result Comment: The Pap smear is a screening test designed to aid in the detection of premalignant and malignant conditions of the uterine cervix. It is not a diagnostic procedure and should not be used as the sole means of detecting cervical cancer. Both false-positive and false-negative reports do occur. . Performed at: WB Performed By: #### 4 [id number] ####[facility] [address] [address]Dr. Eugenio Natarajan Performed by: Comment Normal [facility] Comment on above: Result Comment: Maci Solo Real Estate Acquisition Analyst (ASCP) Performed at: WB Performed By: #### [id number] ####[facility] [address] [address]Dr. Eugenio Natarajan Specimen adequacy: Comment Normal [facility] Comment on above: Result Comment: Sati sfactory for evaluation. No endocervical component is identified. Performed at: WB Performed By: #### 4 [id number] ####[facility] [address] [place], [place] [address]TbDr. Eugenio Natarajan VAGINITIS/VAGINOSIS DNA PROB Niranjan 11-27-2021 Afshan species Negative Normal Negative [facility] Comment on above: Performed By: #### V AGINT #### [facility] [address] [address] [address] Eugenio Natarajan Gardnerella vaginalis Negative Normal Negative [facility] Comment on above: Performed By: #### V AGINT #### [facility] [address] [place], [place] [address] Dr. Eugenio Naatrajan Trichomonas vaginalis Negative Normal Negative [facility] Comment on above: Performed By: #### V AGINT #### [facility] [address] [address] [address] Eugenio Natarajan COVID Quick Testingon 2021 Result Negative [employer] Other MG MAMM LT DIAG FUon 022 MG MAMM LT DIAG FU Patient: LANCE PINK Exam Date: 11/10/2021 : 1980 Gender:F Ordering : DR SARAH KEYS . Admission #: [id number] Family : Order #: [id number] CLICK HERE TO VIEW EXAM RADIOLOGY REPORT [...] Treatments None Family Cancers None LOCATION: [facility] BREAST COMPOSITION: Extremely dense, which [...] Islas M.D. on 11/10/2021 at 10:35 Normal [facility] US BREAST LEFT LIMITEDon US BREAST LEFT LIMITED Patient: LANCE PINK Exam Date: 11/10/2021 : 1980 Gender:F Ordering : DR SARAH KEYS . Admission #: [id number] Family : Order #: [id number] CLICK HERE TO VIEW EXAM RADIOLOGY REPORT [...] Treatments None Family Cancers None LOCATION: [facility] BREAST COMPOSITION: Extremely dense, which [...] M.D. on 11/10/2021 at 10:35 Normal [facility] MG MAMM SCREEN 3D JASON CADon 10-26-2021 MG MAMM SCREEN 3D JASON CAD Patient: LANCE PINK Exam Date: 10/26/2021 : 1980 Gender:F Ordering : DR SARAH KEYS . Admission #: [id number] Family : Order #: [id number] CLICK HERE TO VIEW EXAM RADIOLOGY REPORT PROCEDURE: MAMMOGRAM SCREENING 3D BILATERAL CAD COMPARISON: MG MAMM SCREEN 3D JASON CAD, 10/23/2020. MG MAMM JASON DIAG W CAD, 08/02/2018. INDICATIONS: Screening mammography Calculator Name [facility] Breast Cancer Risk Assessment Tool 5 Year Breast Cancer Risk 0.50% Lifetime Breast Cancer Risk 8.20% Personal Breast Cancer No Personal Ovarian Cancer No Treatments None Family Cancers None LOCATION: [facility] BREAST COMPOSITION: Extremely dense, which [...] M.D. on 10/26/2021 at 14:11 Normal [facility] CBC AUTO DIFFon 07-23-2021 BASO # 0.0 103/ul Normal 0.0-0.1 [facility] Comment on above: Performed By: #### C BC #### [facility] [address] [address] [address] Eugenio Natarajan Basophils/100 WBC (Bld) 0.4 % Normal 0.2-2.0 [facility] Comment on above: Performed By: #### C BC #### [facility] [address] [place], [place] [address] Dr. Eugenio Natarajan EO # 0.1 103/ul Normal 0.0-0.7 [facility] Comment on above: Performed By: #### C BC #### [facility] [address] [place] [address] Dr. Eugenio Natarajan Eosinophils/100 WBC (Bld) 1.2 % Normal 0.9-7.0 [facility] Comment on above: Performed By: #### C BC #### [facility] [address] [place] [address] Dr. Eugenio Natarajan Erythrocyte distribution width (RBC) [Ratio] 11.8 % Normal 11.0-15.0 [facility] Comment on above: Performed By: #### C BC #### [facility] [address] [place] [address] Dr. Eugenio Natarajan Hematocrit (Bld) [Volume fraction] 39.2 % Normal 36.0-48.0 [facility] Comment on above: Performed By: #### C BC #### [facility] [address] [place] [address] Dr. Eugenio Natarajan Hemoglobin (Bld) [Mass/Vol] 12.8 g/dL Normal 12.0-16.0 [facility] Comment on above: Performed By: #### C BC #### [facility] [address] [place] [address] Dr. Eugenio Natarajan IG # 0.02 10e3/ul Normal 0.00-0.03 [facility] Comment on above: Performed By: #### C BC #### [facility] [address] [place] [address] Dr. Eugenio Natarajan IG % 0.3 % Normal 0.0-0.5 [facility] Comment on above: Performed By: #### C BC #### [facility] [address] [place] [address] Dr. Eugenio Natarajan LYMPH # 1.6 103/ul Normal 1.2-3.8 [facility] Comment on above: Performed By: #### C BC #### [facility] [address] [place] [address] Dr. Eugenio Natarajan Lymphocytes/100 WBC (Bld) 22.3 % Normal 20.5-60.0 [facility] Comment on above: Performed By: #### C BC #### [facility] [address] [place] [address] Dr. Eugenio Natarajan MANUAL DIFF REQ NO Normal [facility] Comment on above: Performed By: #### C BC #### [facility] [address] [place] [address] Dr. Eugenio Natarajan MCH (RBC) [Entitic mass] 29.7 pg Normal 26.7-34.0 [facility] Comment on above: Performed By: #### C BC #### [facility] [address] [place] [address] Dr. Eugenio Natarajan MCHC (RBC) [Mass/Vol] 32.7 g/dL Normal 29.9-35.2 [facility] Comment on above: Performed By: #### C BC #### [facility] [address] [place] [address] Dr. Eugenio Natarajan MCV (RBC) [Entitic vol] 91.0 fL Normal 81.0-99.0 [facility] Comment on above: Performed By: #### C BC #### [facility] [address] [place] [address] Dr. Eugenio Natarajan MONO # 0.3 103/ul Normal 0.3-0.8 [facility] Comment on above: Performed By: #### C BC #### [facility] [address] [place] [address] Dr. Eugenio Natarajan Monocytes/100 WBC (Bld) 4.5 % Normal 1.7-12.0 [facility] Comment on above: Performed By: #### C BC #### [facility] [address] [place] [address] Dr. Eugenio Natarajan NEUT # 5.2 103/ul Normal 1.4-6.5 [facility] Comment on above: Performed By: #### C BC #### [facility] [address] [place] [address] Dr. Eugenio Natarajan Neutrophils/100 WBC (Bld) 71.3 % Normal 43.0-75.0 [facility] Comment on above: Performed By: #### C BC #### [facility] [address] [address] [address] Eugenio Natarajan Platelet mean volume (Bld) [Entitic vol] 8.6 fL Critically low 9.5-13.5 [facility] Comment on above: Performed By: #### C BC #### [facility] [address] [address] [address] Eugenio Natarajan PLT 320 103/ul Normal 150-450 [facility] Comment on above: Performed By: #### C BC #### [facility] [address] [address] [address] Eugenio Natarajan RBC 4.31 106/ul Normal 4.20-5.40 [facility] Comment on above: Performed By: #### C BC #### [facility] [address] [place] [address] Dr. Eugenio Natarajan WBC 7.3 103/ul Normal 4.0-11.0 [facility] Comment on above: Performed By: #### C BC #### [facility] [address] [address] [address] Eugenio Natarajan ER URINE PROFILEon 2 Bilirubin Ql (U) Negative Normal NEGATIVE [facility] Comment on above: Performed By: #### E RUR ####[facility] [id number] [place], [place] [address]DrGennaro Natarajan Clarity (U) CLEAR Normal CLEAR The [facility] Comment on above: Performed By: #### E RUR ####[facility] [address] [place], [place] [address]DrGennaro Natarajan Color (U) LT. YELLOW Normal YELLOW The [facility] Comment on above: Performed By: #### E RUR ####[facility] [address] [place], [place] [address]DrGennaro Natarajan ERUAHD A micrscopic examination will be performed if indicated. Normal [facility] Comment on above: Performed By: #### E RUR ####[facility] [id number] [place], [place] [address]Dr. Eugenio Natarajan Glucose Ql (U) Negative Normal NEGATIVE [facility] Comment on above: Performed By: #### E RUR ####[facility] [address] [place], [place] [address]Dr. Eugenio Natarajan Hemoglobin Ql (U) Negative Normal NEGATIVE The [facility] Comment on above: Performed By: #### E RUR ####[facility] [address] [place], [place] [address]Dr. Eugenio Natarajan Ketones Ql (U) 15 mg/dl Abnormal NEGATIVE [facility] Comment on above: Performed By: #### E RUR ####[facility] [address] [place], [place] [address]Dr. Eugenio Natarajan LEUKOCYTES Negative Normal NEGATIVE The [facility] Comment on above: Performed By: #### E RUR ####[facility] [address] [place], [place] [address]Dr. Erayanely Delgado Nitrite Ql (U) Negative Normal NEGATIVE [facility] Comment on above: Performed By: #### E RUR ####[facility] [address] [place], [place] [address]Dr. Eugenio Natarajan pH (U) 6.0 [pH] Normal 5-9 The [facility] Comment on above: Performed By: #### E RUR ####[facility] [address] [place], [place] [address]Dr. Eugenio Natarajan SPEC GRAVITY 1.010 Normal 1.005-<=1.025 [facility] Comment on above: Performed By: #### E RUR ####[facility] [address] [place], [place] [address]Dr. Eugenio Natarajan UA PROTEIN Negative Normal NEGATIVE/ TRACE The [facility] Comment on above: Performed By: #### E RUR ####[facility] [address] [place], [place] [address]Dr. Eugenio Natarajan UR MICRO IND NOT INDICATED Normal [facility] Comment on above: Performed By: #### E RUR ####[facility] [address] [place], [place] [address]Dr. Eugenio Natarajan Urobilinogen Qn (U) 0.2 {Wilmar'U}/dL Normal 0.2 - 1.0 The [facility] Comment on above: Performed By: #### E RUR ####[facility] [address] [address]Dr. Eugenio Natarajan LIPASEon 07-23-2021 Lipase [Catalytic activity/Vol] 74.0 U/L Normal 73.0-393.0 The [facility] Comment on above: Performed By: #### C MP, LIPA #### [facility] [address] [address] [address] Eugenio Natarajan PROF 14(COMP METB)on 022 Albumin [Mass/Vol] 4.1 g/dL Normal 3.4-5.0 [facility] Comment on above: Performed By: #### C MP, LIPA #### [facility] [address] [place] [address] Dr. Eugenio Natarajan Albumin/Globulin [Mass ratio] 1.2 {ratio} Normal [facility] Comment on above: Performed By: #### C MP, LIPA #### [facility] [address] [place] [address] Dr. Eugenio Natarajan ALP [Catalytic activity/Vol] 50 U/L Normal 46-116 [facility] Comment on above: Performed By: #### C MP, LIPA #### [facility] [address] [place] [address] Dr. Eugenio Natarajan ALT [Catalytic activity/Vol] 15 U/L Normal 14-59 [facility] Comment on above: Performed By: #### C MP, LIPA #### [facility] [address] [place] [address] Dr. Eugenio Natarajan Anion gap [Moles/Vol] 13.6 mmol/L Normal [facility] Comment on above: Performed By: #### C MP, LIPA #### [facility] [address] [place] [address] Dr. Eugenio Natarajan AST [Catalytic activity/Vol] 14 U/L Critically low 15-37 [facility] Comment on above: Performed By: #### C MP, LIPA #### [facility] [address] [address] [address] Eugenio Natarajan Bilirubin [Mass/Vol] 1.3 mg/dL Critically high 0.2-1.0 The [facility] Comment on above: Performed By: #### C MP, LIPA #### [facility] [address] [place] [address] Dr. Eugenio Natarajan Calcium [Mass/Vol] 8.3 mg/dL Critically low 8.5-10.1 [facility] Comment on above: Performed By: #### C MP, LIPA #### [facility] [address] [place] [address] Dr. Eugenio Natarajan Chloride [Moles/Vol] 99 mmol/L Normal 98-107 [facility] Comment on above: Performed By: #### C MP, LIPA #### [facility] [address] [place] [address] Dr. Eugenio Natarajan CO2 [Moles/Vol] 28.0 mmol/L Normal 21.0-32.0 [facility] Comment on above: Performed By: #### C MP, LIPA #### [facility] [address] [place] [address] Dr. Eugenio Natarajan Creatinine [Mass/Vol] 0.61 mg/dL Normal 0.55-1.02 [facility] Comment on above: Performed By: #### C MP, LIPA #### [facility] [address] [place] [address] Dr. Eugenio Natarajan EGFR-AF BOLIVIAN >60 Normal >=60 [facility] Comment on above: Performed By: #### C MP, LIPA #### [facility] [address] [place] [address] Dr. Eugenio Natarajan EGFR-NON AF BOLIVIAN >60 Normal >=60 [facility] Comment on above: Performed By: #### C MP, LIPA #### [facility] [address] [place] [address] Dr. Eugenio Natarajan Globulin (S) [Mass/Vol] 3.3 g/dL Normal [facility] Comment on above: Performed By: #### C MP, LIPA #### [facility] [address] [address] [address] Eugenio Natarajan Glucose [Mass/Vol] 82 mg/dL Normal 74-106 [facility] Comment on above: Performed By: #### C MP, LIPA #### [facility] [address] [address] [address] Eugenio Natarajan Potassium [Moles/Vol] 3.6 mmol/L Normal 3.5-5.1 [facility] Comment on above: Performed By: #### C MP, LIPA #### [facility] [address] [address] [address] Eugenio Natarajan Protein [Mass/Vol] 7.4 g/dL Normal 6.1-8.2 [facility] Comment on above: Performed By: #### C MP, LIPA #### [facility] [address] [address] [address] Eugenio Natarajan Sodium [Moles/Vol] 137 mmol/L Normal 136-145 [facility] Comment on above: Performed By: #### C MP, LIPA #### [facility] [address] [address] [address] Eugenio Natarajan Urea nitrogen [Mass/Vol] 8.0 mg/dL Normal 7.0-18.0 [facility] Comment on above: Performed By: #### C MP, LIPA #### [facility] [address] [place] [address] Dr. Eugenio Natarajan Urea nitrogen/Creatini ne [Mass ratio] 13.1 mg/mg Normal [facility] Comment on above: Performed By: #### C MP, LIPA #### [facility] [address] [place] [address] Dr. Eugenio Natarajan US SINGLE QUAD RT [...] FITO ISLAS Date: 2021-07-23 15:01 Normal [facility] VAGINITIS/VAGINOSIS DNA PROB Niranjan 07-23-2021 Afshan species Negative Normal Negative [facility] Comment on above: Performed By: #### V AGINT #### [facility] [address] [place] [address] Dr. Eugenio Natarajan Gardnerella vaginalis Negative Normal Negative [facility] Comment on above: Performed By: #### V AGINT #### [facility] [address] [place] [address] Dr. Eugenio Natarajan Trichomonas vaginalis Negative Normal Negative [facility] Comment on above: Performed By: #### V AGINT #### [facility] [address] [place] [address] Dr. Eugenio Natarajan Coding Summary.on 04-08-2020 Coding Summary. CODING DATE: 04/08/2020 [facility] STATUS: Home (Routine DC) PAYOR: Medicaid EA [...] CphT Date Saved: 04/08/2020 07:50 pm Normal [facility] SARS-CoV-2, NAAon 04-04-2020 SARS CORONAVIRUS 2 RNA:PRTHR:PT:RESP IRATORY:ORD:PROBE .AMP.TAR Not Detected Not Detected [facility] Comment on above: Result Comment: This nucleic acid amplification test was developed and its performance characteristics determined by [employer]. Nucleic acid amplification tests include PCR and [...] detected) result in this assay. Performed at: [facility] [address] [facility] [place] [id number] MD Ross García Performed By: #### S ARS-CoV-2, BEN #### [facility] [address] [place] [address] Physician Orderon 04-01-2020 Physician Order [id number] .00CD:127 Normal [facility] Vital Signs Date Time Vital Sign Value Performing Clinician Facility 04-05-2023 10:30-0500 Body height 163.83 cm [facility] Other [facility] Other 04-05-2023 10:30-0500 Body mass index (BMI) [Ratio] 28.22 kg/m2 [facility] Other [facility] Other 04-05-2023 10:30-0500 Body temperature 97.3 [degF] Nolan Wanda Other [facility] Other 04-05-2023 10:30-0500 Body weight 75.75 kg Nolan Wanda Other [facility] Other 04-05-2023 10:30-0500 Diastolic blood pressure 78 mm[Hg] Nolan Wanda Other [facility] Other 04-05-2023 10:30-0500 Respiratory rate 20 /min Nolan Wanda Other [facility] Other 04-05-2023 10:30-0500 SaO2% (BldA) [Mass fraction] 98 % Nolan Wanda Other [facility] Other 04-05-2023 10:30-0500 Systolic blood pressure 130 mm[Hg] Nolan Wanda Other [facility] Other 03-14-2023 13:30-0500 Body height 163.83 cm Nolan Wanda Other [facility] Other 03-14-2023 13:30-0500 Body mass index (BMI) [Ratio] 27.54 kg/m2 Nolan Wanda Other [facility] Other 03-14-2023 13:30-0500 Body temperature 98.5 [degF] Nolan Wanda Other [facility] Other 03-14-2023 13:30-0500 Body weight 73.94 kg Nolan Wanda Other [facility] Other 03-14-2023 13:30-0500 Diastolic blood pressure 80 mm[Hg] Nolan Wanda Other [facility] Other 03-14-2023 13:30-0500 Respiratory rate 20 /min Nolan Wanda Other [facility] Other 03-14-2023 13:30-0500 SaO2% (BldA) [Mass fraction] 98 % Nolan Wanad Other [facility] Other 03-14-2023 13:30-0500 Systolic blood pressure 118 mm[Hg] Nolan Wanda Other [facility] Other 05-04-2022 11:15-0500 Body height 163.83 cm Nolan Wanda Other [facility] Other 05-04-2022 11:15-0500 Body mass index (BMI) [Ratio] 25.85 kg/m2 Nolan Wanda Other [facility] Other 05-04-2022 11:15-0500 Body temperature 97.3 [degF] Nolan Wanda Other [facility] Other 05-04-2022 11:15-0500 Body weight 69.4 kg Nolan Wanda Other [facility] Other 05-04-2022 11:15-0500 Diastolic blood pressure 62 mm[Hg] Nolan Wanda Other [facility] Other 05-04-2022 11:15-0500 Respiratory rate 20 /min Nolan Wanda Other [facility] Other 05-04-2022 11:15-0500 Systolic blood pressure 106 mm[Hg] Nolan Wanda Other [facility] Other 11-12-2021 16:45-0400 Body height 163.83 cm Nolan Wanda Other [facility] Other 11-12-2021 16:45-0400 Body mass index (BMI) [Ratio] 25.01 kg/m2 Nolan Wanda Other [facility] Other 11-12-2021 16:45-0400 Body temperature 98.3 [degF] Nolan Wanda Other [facility] Other 11-12-2021 16:45-0400 Body weight 67.13 kg Nolan Wanda Other [facility] Other 11-12-2021 16:45-0400 Diastolic blood pressure 68 mm[Hg] Nolan Wanda Other [facility] Other 11-12-2021 16:45-0400 Respiratory rate 20 /min Nolan Wanda Other [facility] Other 11-12-2021 16:45-0400 SaO2% (BldA) [Mass fraction] 98 % Nolan Wanda Other [facility] Other 11-12-2021 16:45-0400 Systolic blood pressure 110 mm[Hg] Nolan Wanda Other [facility] Other 07-24-2021 10:00-0400 Body height 163.83 cm Nolan Wanda Other [facility] Other 07-24-2021 10:00-0400 Body mass index (BMI) [Ratio] 25.68 kg/m2 Nolan Wanda Other [facility] Other 07-24-2021 10:00-0400 Body temperature 98.9 [degF] Nolan Wanda Other [facility] Other 07-24-2021 10:00-0400 Body weight 68.95 kg Nolan Wanda Other [facility] Other 07-24-2021 10:00-0400 Diastolic blood pressure 68 mm[Hg] Nolan Wanda Other [facility] Other 07-24-2021 10:00-0400 Respiratory rate 20 /min Nolan Wanda Other [facility] Other 07-24-2021 10:00-0400 SaO2% (BldA) [Mass fraction] 96 % Nolan Wanda Other [facility] Other 07-24-2021 10:00-0400 Systolic blood pressure 118 mm[Hg] Nolan Wanda Other [facility] Other 04-09-2021 17:45-0500 Body height 163.83 cm Nolan Wanda Other [facility] Other 04-09-2021 17:45-0500 Body mass index (BMI) [Ratio] 25.52 kg/m2 Nolan Wanda Other [facility] Other 04-09-2021 17:45-0500 Body temperature 98.4 [degF] Nolan Wanda Other [facility] Other 04-09-2021 17:45-0500 Body weight 68.49 kg Nolan Wanda Other [facility] Other 04-09-2021 17:45-0500 Diastolic blood pressure 60 mm[Hg] Nolan Wanda Other [facility] Other 04-09-2021 17:45-0500 Respiratory rate 20 /min Nolan Wanda Other [facility] Other 04-09-2021 17:45-0500 SaO2% (BldA) [Mass fraction] 98 % Nolan Wanda Other [facility] Other 04-09-2021 17:45-0500 Systolic blood pressure 98 mm[Hg] Nolan Wanda Other [facility] Other Encounters Encounter Date Encounter Type Care Provider Facility Start: 05-03-2023 Clinisync Result Encounter Georgina GEORGE Work Phone: [facility] External Department Unsolicited Start: 05-03-2023 Clinisync Result Encounter Gerogina GEORGE Work Phone: [facility] External Department Unsolicited Start: 05-03-2023 End: 05-03-2023 ambulatory GEORGINA PORTILLO Not Available Start: 04-29-2023 Chart abstracting Georgina GEORGE Work Phone: [facility] Start: 04-18-2023 End: 04-18-2023 ambulatory Imad Asaad Other [facility] Other Start: 04-18-2023 Telephone encounter Imad Asaad [facility] Start: 04-12-2023 End: 04-12-2023 ambulatory Nolan Wanda Other [facility] Other Start: 04-12-2023 Telephone encounter Nolan Wanda [facility] Start: 04-07-2023 End: 04-07-2023 ambulatory Nolan Wanda Other [facility] Other Start: 04-07-2023 Telephone encounter Nolan Wanda [facility] Start: 04-06-2023 End: 04-06-2023 ambulatory Nolan Wanda Other [facility] Other Start: 04-06-2023 Telephone encounter Nolan Wanda [facility] Start: 04-05-2023 End: 04-05-2023 ambulatory Nolan Wanda Other [facility] Other Start: 04-05-2023 Office outpatient vi sit 25 minutes Nolan Wanda [facility] Start: 04-05-2023 Telephone encounter Nolan Wanda [facility] Start: 03-14-2023 End: 03-14-2023 ambulatory Nolan Wanda Other [facility] Other Start: 03-14-2023 Office outpatient vi sit 15 minutes Nolan Wanda [facility] Start: 03-14-2023 Telephone encounter Nolan Wanda [facility] Start: 02-14-2023 End: 02-14-2023 ambulatory Nolan Wanda Other [facility] Other Start: 02-14-2023 Telephone encounter Nolan Wanda [facility] Start: 07-28-2022 End: 07-28-2022 ambulatory Nolan Wanda Other [facility] Other Start: 07-28-2022 Telephone encounter Nolan Wanda [facility] Start: 07-08-2022 End: 07-08-2022 ambulatory Nolan Wanda Other [facility] Other Start: 07-08-2022 Telephone encounter Nolan Wanda [facility] Start: 06-11-2022 End: 06-11-2022 ambulatory Fito Islas Facility:[facility] Start: 05-10-2022 End: 05-10-2022 ambulatory Nolan Wanda Other [facility] Other Start: 05-10-2022 Telephone encounter Nolan Wanda [facility] Start: 05-04-2022 End: 05-04-2022 ambulatory Nolan Wanda Other [facility] Other Start: 05-04-2022 Office outpatient vi sit 15 minutes Nolan Wanda [facility] Start: 03-17-2022 End: 03-17-2022 ambulatory Nolan Wanda Other [facility] Other Start: 03-17-2022 Telephone encounter Nolan Wanda [facility] Start: 02-08-2022 End: 02-08-2022 ambulatory Nolan Wanda Other [facility] Other Start: 02-08-2022 Telephone encounter Nolan Wanda [facility] Start: 01-04-2022 End: 01-04-2022 ambulatory Nolan Wanda Other [facility] Other Start: 01-04-2022 Telephone encounter Nolan Wanda [facility] Start: 11-24-2021 End: 11-24-[address] GAMBOA M WANDA Facility:[facility] Start: 11-12-2021 End: 11-12-2021 ambulatory Nolan Wanda Other [facility] Other Start: 11-12-2021 Office outpatient vi sit 15 minutes Nolan Wanda [facility] Start: 11-10-2021 End: 11-11-[address] NOLAN Lewis WANDA Facility:[facility] Start: 10-26-2021 End: 10-27-[address] NOLAN Lewis WANDA Facility:[facility] Start: 10-19-2021 End: 10-19-2021 ambulatory Nolan Wanda Other [facility] Other Start: 10-19-2021 Telephone encounter Nolan Wanda [facility] Start: 08-13-2021 End: 08-13-2021 ambulatory Nolan Wanda Other [facility] Other Start: 08-13-2021 Telephone encounter Nolan Wanda [facility] Start: 08-10-2021 End: 08-10-2021 ambulatory Nolan Wanda Other [facility] Other Start: 08-10-2021 Telephone encounter Nolan Wanda [facility] Start: 07-24-2021 End: 07-24-2021 ambulatory Nolan Wanda Other [facility] Other Start: 07-24-2021 Office outpatient vi sit 15 minutes Nolan Wanda [facility] Start: 07-23-2021 End: 07-23-[address] NOLAN Lewis WANDA Facility:[facility] Start: 07-21-2021 End: 07-21-[address] SARAH KEYS . Facility:[facility] Start: 05-06-2021 End: 05-06-2021 ambulatory Nolan Wanda Other [facility] Other Start: 05-06-2021 Telephone encounter Nolan Wanda [facility] Start: 04-17-2021 End: 04-17-2021 ambulatory Nolan Wanda Other [facility] Other Start: 04-17-2021 Telephone encounter Nolan Wanda [facility] Start: 04-14-2021 End: 04-14-2021 ambulatory Nolan Wanda Other [employer] Other Start: 04-14-2021 Telephone encounter Nolan Wanda [facility] Start: 04-09-2021 End: 04-09-2021 ambulatory Nolan Wanda Other [employer] Other Start: 04-09-2021 Office outpatient vi sit 15 minutes Nolan Wanda [facility] Procedures Date Procedure Procedure Detail Performing Clinician Start: 05-03-2023 IGP,APTIMA HPV,AGE GDLN Georgina GEORGE Work Phone: Plan of Treatment Date Care Activity Detail Author Start: 05-08-2024 End: 05-08-2024 Patient encounter procedure 05/08/2024 11:00 AM EST [facility] [address] [facility] [place] [address] Georgina Portillo PA [address] [place] [address] [facility] Start: 05-03-2023 End: 05-03-2023 Patient encounter procedure 05/03/2023 11:00 AM EST Office Visit [facility] [address] [place] [phone] Georgina Portillo PA [address] [place] [address] Well woman exam with routine gynecological exam [facility] Comment on above: Well woman exam with routine gynecological exam Immunizations Immunization Date Immunization Notes Care Provider Celso rodriguez NEGATED: Highlighted row has not occurred!10-15-2019 influenza, injectable, quadrivalent, contains preservative Patient Objection Nolan Wanda Other [employer] Other NEGATED: Highlighted row has not occurred!02-28-2018 influenza, injectable, quadrivalent, contains preservative Patient Objection Nolan Wanda Other [employer] Other NEGATED: Highlighted row has not occurred!01-12-2018 influenza, injectable, quadrivalent, contains preservative Patient Objection Nolan Wanda Other [employer] Other NEGATED: Highlighted row has not occurred!07-05-2017 influenza, injectable, quadrivalent, contains preservative Patient Objection Nolan Wanda Other [employer] Other NEGATED: Highlighted row has not occurred!03-31-2017 influenza, injectable, quadrivalent, contains preservative Patient Objection Nolan Wanda Other [employer] Other NEGATED: Highlighted row has not occurred!06-01-2016 influenza, injectable, quadrivalent, contains preservative Patient Objection Nolan Wanda Other [employer] Other Payers Date Payer Category Payer Private Health Insurance [id number] 2023 Private Health Insurance [facility] [id number] 2023-Present [address] [place] [id number] 1980 Unknown [id number] 93 1980 Unknown [id number] 93 1980 Unknown [id number] 93 1980 Unknown [id number] 93 1980 Unknown [id number] 93 1980 Unknown [id number] 93 1980 Unknown [id number] 259 1959 Unknown [id number] 1959 Unknown [id number] Unknown [id number] Social History Date Type Detail Facility Unknown if ever smoked [facility] [employer] Other Start: 04-29-2023 Sex Assigned At N [facility] [employer] Other Start: 04-29-2023 Tobacco smoking status NYIS Never smoked tobacco [facility] Start: 04-29-2023 End: 05-03-2023 Alcohol intake Lifetime non-drinker (finding) [facility] Start: 04-29-2023 Alcohol Comment Caffeine intake: non e [facility] Start: 1980 Sex Assigned At Not on file [facility] Start: 04-29-2023 History of Social function [facility] Clinical Notes 04-28-2019 to 04-12-2023 Note Date & Type Note Facility 04-12-2023 Evaluation note Encounter Date Diagnosis Assessment Notes Mar, Abdominal bloating (ICD-10 - R14.0) [facility] [employer] Other 01-11-2024 Evaluation note* Encounter Date Diagnosis Assessment Notes Treatment Notes Treatment Clinical Notes Mar, Abdominal bloating (ICD-10 - R14.0) [facility] [employer] Other 01-09-2024 Evaluation note* Encounter Date Diagnosis [...] E Rx sent. No other change today. [facility] Other 01-09-2024 Evaluation note* Encounter Date Diagnosis Assessment Notes Treatment Notes Treatment Clinical Notes Mar, RUQ abdominal pain (ICD-10 - R10.11) [facility] [employer] Other 12-18-2023 Evaluation note* Encounter Date Diagnosis Assessment Notes Treatment Notes Treatment Clinical Notes Feb, Red eyes (ICD-10 - H57.89) [facility] [employer] Other 12-18-2023 Evaluation note* Encounter Date Diagnosis Assessment Notes Treatment Notes Treatment Clinical Notes Feb, Red eyes (ICD-10 - H57.89) Feb, Acute pharyngitis, unspecified (ICD-10 - J02.9) With all of this testing being negative, this most likely represents a viral infection. Patient to call if symptoms persist. She voices agreement and understanding. Work note given. [employer] Other 11-20-2023 Evaluation note* Encounter Date Diagnosis Assessment Notes Treatment Notes Treatment Clinical Notes Jan, Left foot pain (ICD-10 - M79.672) Jan, Seasonal allergies (ICD-10 - J30.2) Jan, Anxiety (ICD-10 - F41.9) [facility] Other 05-03-2023 Evaluation note* Encounter Date Diagnosis Assessment Notes Treatment Notes Treatment Clinical Notes July, Anxiety (ICD-10 - F41.9) [facility] [employer] Other 04-13-2023 Evaluation note* Encounter Date Diagnosis Assessment Notes Treatment Notes Treatment Clinical Notes Jun, Seasonal allergies (ICD-10 - J30.2) [facility] [employer] Other 02-13-2023 Evaluation note* Encounter Date Diagnosis Assessment Notes Treatment Notes Treatment Clinical Notes Apr, Anxiety (ICD-10 - F41.9) [facility] [employer] Other 02-07-2023 Evaluation note* Encounter Date Diagnosis Assessment Notes Treatment Notes Treatment Clinical Notes Apr, Abdominal bloating (ICD-10 - R14.0) eRX sent. SIBO? IBS? Pt would really need GI review to make formal diag...Call is she wants to proceed. Call with results of the meds.... Apr, Left foot pain (ICD-10 - M79.672) [facility] Other 12-21-2022 Evaluation note* Encounter Date Diagnosis Assessment Notes Treatment Notes Treatment Clinical Notes Feb, Anxiety (ICD-10 - F41.9) [facility] [employer] Other 11-14-2022 Evaluation note* Encounter Date Diagnosis Assessment Notes Treatment Notes Treatment Clinical Notes Jan, Left foot pain (ICD-10 - M79.672) [facility] [employer] Other 10-10-2022 Evaluation note* Encounter Date Diagnosis Assessment Notes Treatment Notes Treatment Clinical Notes Dec, Anxiety (ICD-10 - F41.9) [facility] [employer] Other 08-18-2022 Evaluation note* Encounter Date Diagnosis Assessment Notes Treatment Notes Treatment Clinical Notes Oct, Acute pharyngitis, unspecified (ICD-10 - J02.9) Oct, Left foot pain (ICD-10 - M79.672) [facility] Other 07-25-2022 Evaluation note* Encounter Date Diagnosis Assessment Notes Treatment Notes Treatment Clinical Notes Sep, Anxiety (ICD-10 - F41.9) Sep, Seasonal allergies (ICD-10 - J30.2) [facility] Other 05-19-2022 Evaluation note* Encounter Date Diagnosis Assessment Notes Treatment Notes Treatment Clinical Notes July, Seasonal allergies (ICD-10 - J30.2) [facility] Other 05-16-2022 Evaluation note* Encounter Date Diagnosis Assessment Notes Treatment Notes Treatment Clinical Notes July, Anxiety (ICD-10 - F41.9) [facility] Other 04-29-2022 Evaluation note* Encounter Date Diagnosis [...] Jun, Generalized abdominal pain (ICD-10 - R10.84) [employer] Other 02-09-2022 Evaluation note* Encounter Date Diagnosis Assessment Notes Treatment Notes Treatment Clinical Notes Apr, Anxiety (ICD-10 - F41.9) [employer] Other 01-18-2022 Evaluation note* Encounter Date Diagnosis Assessment Notes Treatment Notes Treatment Clinical Notes Mar, Cough (ICD-10 - R05.9) [facility] Other 01-13-2022 Evaluation note* Encounter Date Diagnosis Assessment Notes Treatment Notes Treatment Clinical Notes Mar, Acute upper respiratory infection (ICD-10 - J06.9) E Rx sent. OARRs completed. Certainly patient to call if no improvement seen. [employer] Other 02-01-2020 History general Narrative - Reported* Type Description Date Medical History anxiety Medical History 04/2019 COVID Surgical History Appy age 14 Surgical History left foot surgery 08/2017 Surgical History VANNA - right ovary remains 04/16 19 Hospitalization History childbirth x 2 Hospitalization History appendacitis as a child Hospitalization History VANNA 03/2019 [employer] Other Evaluation noteNo [employer] Other History general Narrative - [employer] Other Summary Purpose Family History No Family History Records FoundNo Family History Records FoundNo Family History Records Found Advance Directives No Advanced Directives Records FoundNo Advanced Directives Records FoundNo Advanced Directives Records Found Additional Source Comments INFORMATION SOURCE (unrecogn ized section and content) DATE CREATED AUTHOR 04/09/2020 [employer] [facility] DATE CREATED AUTHOR AUTHOR'S ORGANIZ ATION 06/16/[address] [facility] pital DATE CREATED AUTHOR AUTHOR'S ORGANIZ ATION 05/04/2023 [facility] EPIC REASON FOR VISIT (unrecogniz ed section and content) coughing up green, bloody no se, neg home covid test. LAB , patient has been sick for almost 2 weeks, 2 negative home tests.. she tested last and this past tuesday..Clinical Acute Illnessrefill Xanaxstomach discomfort again, patient went to [facility] last night, for vomiting, nausea, lightheadedness [...] and headachelab results inquiryfill flagylfollow upGI referralHIDA [facility]Clinical [facility] IllnessMAIL PPW Care Teams (unrecognized sec tion and content) Branch Services Manager Relationship Specialty Start Date End Date Nolan Muñoz MD [address] [place] [phone] PCP - General Family Medicine 05/03/23 FOR [...] BE BASED ON THE PRIMARY CLINICAL RECORDS. [employer] [facility]. provides no warranty or guarantee of the accuracy or completeness of information in this document.
== END 2023-06-14 09:21 | disposition home or self-care (01) ==
LOC: MAMMO 09:20
PROVIDERS: PCP Family Medicine; Visit Provider Obstetrics & Gynecology
DX: R92.8 Other abnormal and inconclusive findings on diagnostic imaging of breast (principal)
CPT/HCPCS: 76642; 77065